=== PATIENT | female | born 1990 | race Caucasian/White ===

== ENCOUNTER 2020-01-16 09:15 | Outpatient (CLI) | payer OTHER, SELFPAY ==
[2020-01-16 09:40] LABS: Add Urine Microscopic? YES; Appearance Urine Clear (Clear); Bilirubin Urine Negative (Negative); Blood Urine 2+ (Negative); Color Urine Yellow (Yellow); Glucose Urine UA Negative (Negative); Ketones Urine Negative (Negative); Leukocyte Esterase Ur 1+ LEU/UL (Negative); Nitrate Urine Negative (Negative); Protein Urine Negative (Negative); Specific Grav Ur >= 1.030 (1.010-1.020); Urobilinogen Urine 0.2 mg/dL (0.2-1.0)
[2020-01-16 09:46] LABS: Basophils Absolute Auto 0.03 K/mm3 (0.00-0.10); Basophils Percent Auto 0.5 % (0.0-1.0); Eosinophils Absolute Auto 0.16 K/mm3 (0.02-0.50); Eosinophils Percent Auto 2.9 % (1.0-6.0); Hematocrit 40.3 % (35.0-49.0); Immature Granulocyte Absolute 0.02 K/mm3 (0.00-0.00); Immature Granulocyte Percent A 0.4 % (0.0-0.0); Lymphocytes Absolute Auto 2.08 K/mm3 (1.10-4.50); Lymphocytes Percent Auto 38.1 % (18.0-42.0); Mean Corpuscular HGB Conc 32.3 g/dL (32.0-36.0); Mean Corpuscular Hemoglobin 30.4 pg (27.0-31.0); Mean Corpuscular Volume 94.4 fL (78.0-102.0); Mean Platelet Volume 9.2 fl (9.2-11.8); Monocytes Absolute Auto 0.29 K/mm3 (0.10-0.90); Monocytes Percent Auto 5.3 % (2.0-11.0); Neutrophils Absolute Auto 2.9 K/mm3 (1.7-7.2); Neutrophils Percent Auto 52.8 % (50.0-70.0); Platelet Count Result 261 K/mm3 (150-420); Red Blood Count 4.27 M/mm3 (4.20-5.40); Red Cell Distribution Width 12.3 % (11.6-14.4); White Blood Count 5.5 K/mm3 (4.8-10.8)
[2020-01-16 09:54] LABS: Bacteria Urine 2+ /hpf; Mucus Urine Moderate /lpf; Squamous Epithelial Cell Urine Moderate /hpf (Few)
[2020-01-16 11:17] LABS: Alanine Aminotransferase 39 U/L (14-59); Alkaline Phosphatase 78 U/L (46-116); Anion Gap 15 mmol/L (8-16); Aspartate Amino Transferase 23 U/L (15-37); Bilirubin,Total 0.3 mg/dL (0.00-1.00); Blood Urea Nitrogen 15 mg/dL (7-18); Calcium 9.3 mg/dL (8.5-10.1); Carbon Dioxide 22 mmol/L (21-32); Chloride 104 mmol/L (98-108); Cholesterol 237 mg/dL (0-200); Estimated Glomerular Filt Rate > 60; Free T3 3.37 pg/mL (2.18-3.98); Free T4 Free Thyroxine 1.17 ng/dL (0.76-1.46); Glucose 88 mg/dL (70-99); HDL Direct 55 mg/dL (40-60); LDL Cholesterol Calculated 163 mg/dL (<130); Osmolality Calculated 291 mOsm/kg (285-295); Potassium 4.5 mmol/L (3.5-5.1); Sodium 141 mmol/L (136-145); Total Protein 7.6 g/dL (6.4-8.2); Triglycerides 95 mg/dL (0-150)
== END 2020-01-16 09:16 | disposition home or self-care (01) ==
LOC: CHSLAB 09:24
PROVIDERS: PCP Internal Medicine; Visit Provider Internal Medicine
DX: E78.5 Hyperlipidemia, unspecified (principal); E03.4 Atrophy of thyroid (acquired); R82.90 Unspecified abnormal findings in urine
CPT/HCPCS: 36415; 80053; 80061; 81001; 84439; 84443; 84481; 85025; 87086

== ENCOUNTER 2020-04-28 12:40 | Outpatient (CLI) | payer OTHER, SELFPAY ==
[2020-04-28 13:56] LABS: Influenza Control Valid (Valid)
[2020-04-28 13:57] LABS: SARS-CoV-2 Ag Negative (Negative)
== END 2020-04-28 12:41 | disposition home or self-care (01) ==
PROVIDERS: PCP Internal Medicine; Visit Provider Internal Medicine
DX: J02.9 Acute pharyngitis, unspecified (principal); Z20.828 Contact with and (suspected) exposure to other viral communicable diseases
CPT/HCPCS: 87081; 87426; 87804; 87880

== ENCOUNTER 2020-05-11 08:49 | Outpatient (CLI) | payer OTHER, SELFPAY ==
[2020-05-11 10:04] LABS: SARS-CoV-2 Ag Positive (Negative)
== END 2020-05-11 08:50 | disposition home or self-care (01) ==
LOC: CHSLAB 08:50
PROVIDERS: PCP Internal Medicine; Visit Provider Internal Medicine
DX: U07.1 COVID-19 (principal)
CPT/HCPCS: 87426

== ENCOUNTER 2020-05-22 09:10 | Emergency (ER) | payer OTHER, SELFPAY ==
--- NOTE | ~2020-05-22 | XR_ITS ---
EXAMINATION: XR chest 1V portable EXAM DATE: 05/22/2020 10:46 INDICATION: Abnormal CT, possible covid, shortness of breath. TECHNIQUE: Portable AP frontal chest x-ray was obtained. Comparison is made to prior examination from 11/02/2018. FINDINGS: Thoracolumbar Ramesh rods. No confluent consolidation, pneumothorax or pleural effusion suspected. Cardiomediastinal silhouette is normal. There are no osseous abnormalities identified. IMPRESSION: Can't identify the small basilar groundglass opacities confirmed on CT. Reviewed, dictated and finalized at location A. RVISOR CHEMICAL
--- NOTE | ~2020-05-22 | CT_ITS ---
EXAMINATION: CT abdomen pelvis wo con EXAM DATE: 05/22/2020 09:57 INDICATION: Right flank pain. TECHNIQUE: Spiral CT of the abdomen and pelvis was performed without contrast. Axial, coronal and sag ittal images were reviewed. The dose-length product (DLP) for this examination was 344.30 mGy-cm. T he exposure was tailored according to patient size (auto mA exposure control), and iterative reconstr uction (ASIR) was used as additional dose reduction technique. Comparison is made to prior examinatio n from 05/18/2019. FINDINGS: There is a 5 mm stone in the right ureteropelvic junction with mild right-sided hydronephro sis. Several other punctate right calyceal stones. Kidneys are somewhat obscured by the metallic tamia fact from Ramesh rods. The uterus and ovaries are unremarkable, no adnexal mass. The bladder is collapsed at time of imaging limiting evaluation. The liver, spleen, adrenal glands and pancreas ar e unremarkable. Gallbladder is unremarkable. No biliary obstruction. There is no retroperitoneal o r pelvic lymphadenopathy. The stomach and small bowel are unremarkable. There is expected amount of colonic stool. No free i ntraperitoneal gas. The heart is normal in size. There are no pericardial or pleural effusions. S everal small regions of peripheral left lower lobe and right lower lobe groundglass opacities, nonspe cific pneumonitis but could be COVID pneumonia given community prevalence. There are no osteoblastic or osteolytic lesions identified. IMPRESSION: 1. Right UPJ 5 mm stone, mild obstructive nephropathy. 2. Punctate right nephrolithiasis. 3. Several small basilar groundglass opacities, possible COVID pneumonia. I discussed these findings with Anika Tavera MD at 05/22/2020 10:01 TRUCK DOCK MATERIAL MOVER. Reviewed, dictated and finalized at location A. K DOCK MATERIAL MOVER IMPRESSION: 1. Right UPJ 5 mm stone, mild obstructive nephropathy. 2. Punctate right nephrolithiasis. 3. Several small basilar groundglass opacities, possible COVID pneumonia. I discussed these findings with Anika Tavera MD at 05/22/2020 10:01 [facility].
--- NOTE | ~2020-05-22 | XR_ITS ---
EXAMINATION: XR abdomen/kub 1V EXAM DATE: 05/22/2020 09:57 INDICATION: Right UPJ 5 mm stone. TECHNIQUE: Frontal projection of the upper abdomen, frontal projection lower abdomen/pelvis for inter pretation. Comparison is made to prior examination from 04/15/2019. FINDINGS: Probable identification of right UPJ 5 mm stone, finding indicated. Nonobstructive bowel g as pattern. Mild lumbar levoscoliosis. There is no organomegaly. IMPRESSION: Probable identification right UPJ 5 mm stone. Reviewed, dictated and finalized at location A. LATOR HELPER
[2020-05-22 09:21] VITALS: BP 141/100; PULSE 88; RESP 18; TEMP 36.7; O2SAT 99
--- NOTE | 2020-05-22 09:39 | ED.BACK ---
HPI - Back Pain/Injury General Chief Complaint: Back Pain/Injury Stated Complaint: flank/back pain Time Seen by Provider: 05/22/20 09:17 Source: patient Mode of arrival: ambulatory Limitations: no limitations History of Present Illness HPI Narrative: This patient is a 29 year old female who presents for evaluation of right flank pain. She states her pain started at 630 am this morning. This pain is located right flank and it radiates to right upper abdomen. She reports associated nausea, urinary urgency and hesitancy. She denies hematuria or fever. She took tylenol prior to arrival with no relief. She does have a history of kidney stones. MD elicited complaint: back pain Pertinent past history: kidney stones and back surgery Onset (ago): hour(s) (3) Timing: constant Location: right flank Radiation: abdomen Related Data Allergies Allergy/AdvReac Type Severity Reaction Status Date / Time magnesium sulfate Allergy Unknown SEIZURE Verified 05/22/20 09:25 Sulfa (Sulfonamide Allergy Unknown NAUSEA Verified 05/22/20 09:25 Antibiotics) linezolid AdvReac Unknown VOMITING Verified 05/22/20 09:25 Review of Systems Review of Systems: All systems reviewed & are unremarkable except as noted in HPI and below Constitutional: Constitutional: Denies chills and Denies fever(s) Gastrointestinal: Gastrointestinal: Reports abdominal pain and Denies vomiting Genitourinary: Genitourinary: Reports nocturia, Denies dysuria and Reports flank pain Musculoskeletal: Musculoskeletal: Reports back pain PMF Past Medical History Medical History (Updated 05/22/20 @ 12:46 by Anika Tavera MD) Anemia Anxiety Bronchitis Chronic back pain Endometriosis GERD (gastroesophageal reflux disease) History of blood transfusion Irritable bowel Pneumonia Scoliosis Seasonal allergies Seizure UTI (urinary tract infection) Surgical History Surgical History (Updated 05/18/19 @ 17:30 by Dalila Devries) History of laparoscopy History of spinal fusion Social History Social History (Updated 05/18/19 @ 17:30 by Dalila Devries) Smoking status: Never smoker Exam Const: General: alert Orientation/consciousness: patient oriented x3 Other: mild distress due to pain Eyes: EOM: EOMs intact bilaterally Resp: Effort & Inspection: normal respiratory effort and no retractions Auscultation: clear to auscultation bilaterally Cardio: Rate: regular rate Rhythm: regular rhythm Heart sounds: no murmurs GI: GI Palp: Yes Soft to palpation, No Tenderness to palpation present (GI) and No Guarding due to palpation present (GI) Auscultation: normal bowel sounds : General: Yes CVA tenderness on the right Skin: General skin exam: normal color Rashes: no rashes Neuro: General: patient oriented x3 and moves all extremities Course Reevaluation(s) Reevaluation #1: I discussed with patient CT findings. She reports she had covid 2 weeks ago but she was cleared by [facility] 2 days ago to end quarantine. She denies cough. She reports mild sob. She has no hypoxia. I have discussed she has elevated LFTS and that she will need to follow up with her PCP. She reports pain and nausea are controlled and she is okay for discharge to follow up as outpatient. Date: 05/22/20 Time: 12:40 Vital Signs Vital signs: Vital Signs Temperature 98.0 F 05/22/20 09:21 Pulse Rate 88 05/22/20 09:21 Respiratory Rate 18 05/22/20 09:21 Blood Pressure 141/100 H 05/22/20 09:21 Pulse Oximetry 99 05/22/20 09:21 Temperature 98.0 F 05/22/20 09:21 Pulse Rate 80 05/22/20 12:59 Respiratory Rate 20 05/22/20 12:59 Blood Pressure 124/73 05/22/20 12:59 Pulse Oximetry 97 05/22/20 12:59 MDM - Back Pain/Injury Lab Data Attestation: I reviewed the patient's lab results. Result diagrams: 05/22/20 09:49 05/22/20 09:49 Labs: Lab Results 05/22/20 05/22/20 05/22/20 Range/Units 09:
[2020-05-22] MEDS: SODIUM CHLORIDE 0.9% IV 1,000 ML 999 ML IV CONT (09:43)
[2020-05-22] MEDS: ONDANSETRON INJ 4 MG/2 ML VIAL IV PUSH ×2 (09:44→12:05)
[2020-05-22] MEDS: MORPHINE SULFATE (*CRX) 4 MG/ML INJ IV PUSH (09:44)
--- NOTE | 2020-05-22 09:47 | PC.NURSE ---
patient medicated as ordered. patient to CT via anesthesia tech.
[2020-05-22 09:59] LABS: Eosinophils Percent Auto 0.4 % (0-4.4); Hematocrit 41.7 % (37.0-47.0); Hemoglobin 13.5 g/dL (12.0-15.0); Immature Granulocyte Absolute 0.01 K/mm3 (0.00-0.031); Immature Granulocyte Percent A 0.4 % (0-0.5); Lymphocytes Absolute Auto 1.07 K/mm3 (0.9-3.2); Lymphocytes Percent Auto 41.3 % (18.3-44.2); Mean Corpuscular HGB Conc 32.4 g/dl (32-36); Mean Corpuscular Hemoglobin 29.9 pg (26-34); Mean Corpuscular Volume 92.3 fl (80-100); Mean Platelet Volume 9.1 fl (7.4-10.4); Monocytes Absolute Auto 0.3 K/mm3 (0.1-0.6); Monocytes Percent Auto 9.7 % (2.6-8.5); Neutrophils Absolute Auto 1.3 K/mm3 (1.3-6.7); Neutrophils Percent Auto 48.2 % (45.5-73.1); Platelet Count Result 128 k/mm3 (150-375); Red Blood Count 4.52 M/mm3 (4.2-5.4); Red Cell Distribution Width 12.4 % (11.5-14.5); White Blood Count 2.6 K/mm3 (4.5-10.0)
[2020-05-22 10:07] LABS: Add Urine Microscopic? YES; Amorphous Sediment Urine Few; Appearance Urine Cloudy (Clear); Bilirubin Urine Negative (Negative); Blood Urine 2+ (Negative); Color Urine Yellow (Yellow); Glucose Urine UA Negative (Negative); Ketones Urine Negative (Negative); Leukocyte Esterase Ur Negative LEU/UL (Negative); Mucus Urine Heavy /lpf; Nitrate Urine Negative (Negative); Protein Urine 1+ mg/dL (Negative); RBC Urine >75 /hpf (0-2); Squamous Epithelial Cell Urine Few /hpf (Few)
[2020-05-22 10:09] LABS: Specific Grav Ur 1.033 (1.001-1.035)
[2020-05-22 10:10] VITALS: BP 119/87; PULSE 82; RESP 18; O2SAT 99
[2020-05-22 10:17] LABS: Alanine Aminotransferase 467 U/L (4-35); Albumin Level 4.4 g/dL (3.5-5.1); Alkaline Phosphatase 93 U/L (38-126); Anion Gap 11 mmol/L (8-16); Aspartate Amino Transferase 253 U/L (14-36); Bilirubin,Total 0.5 mg/dL (0.2-1.3); Blood Urea Nitrogen 17 mg/dL (7-17); Calcium 9.2 mg/dL (8.4-10.2); Carbon Dioxide 25 mmol/L (22-30); Chloride 106 mmol/L (98-107); Estimated Glomerular Filt Rate > 60; Glucose 100 mg/dL (65-105); Lipase 93 U/L (23-300); Potassium 3.9 mmol/L (3.4-5.0); Sodium 142 mmol/L (137-145)
[2020-05-22] MEDS: HYDROmorphone HCL INJ (*CRX) 1 MG/ML SYR IV PUSH (11:02)
[2020-05-22] MEDS: TAMSULOSIN HCL 0.4 MG CAPSULE PO (11:05)
[2020-05-22 11:09] VITALS: BP 126/79; PULSE 85; RESP 18; O2SAT 98
[2020-05-22 11:59] VITALS: BP 121/67; PULSE 82; RESP 18; O2SAT 96
[2020-05-22 12:59] VITALS: BP 124/73; PULSE 80; RESP 20; O2SAT 97
== END 2020-05-22 13:02 | disposition home or self-care (01) ==
PROVIDERS: Emergency Provider General Practice; PCP Internal Medicine
DX: N13.8 Other obstructive and reflux uropathy (principal); N20.2 Calculus of kidney with calculus of ureter; R74.01 Elevation of levels of liver transaminase levels; Z86.2 Personal history of diseases of the blood and blood-forming organs and certain disorders involving the immune mechanism; K21.9 Gastro-esophageal reflux disease without esophagitis; N80.9 Endometriosis, unspecified; K58.9 Irritable bowel syndrome, unspecified; Z87.440 Personal history of urinary (tract) infections; Z98.1 Arthrodesis status; R91.8 Other nonspecific abnormal finding of lung field
CPT/HCPCS: 36415; 71045; 74018; 74176; 80053; 81001; 81025; 83690; 85025; 87077; 87086; 87088; 96361; 96374; 96375; 96376; 99284; A9270; J1170; J2270; J2405; J7030

== ENCOUNTER 2020-05-24 18:47 | Emergency (ER) | payer OTHER, SELFPAY ==
[2020-05-24] VITALS (26 sets, daily range): BP systolic 120–155; BP diastolic 83–98; PULSE 80–94; RESP 20; TEMP 36.7; O2SAT 90–100
--- NOTE | ~2020-05-24 | XR_ITS ---
XR abdomen/kub 1V 05/24/2020 19:55 INDICATION: Kidney stones TECHNIQUE: KUB COMPARISON: Comparison to multiple prior studies sequentially, with oldest reviewed study dated 10/2012. FINDINGS: Bowel gas pattern is normal. There is no evidence of free air, mass, organomegaly, ascites or obstruction. No abnormal calculi are seen. The bones appear intact. There are spinal fusion ebkah nges at the thoracolumbar junction. IMPRESSION: 1: No acute abdominal abnormality identified. Reviewed, dictated and finalized at location A. TS EQUIPMENT REPAIRER
--- NOTE | ~2020-05-24 | CT_ITS ---
EXAMINATION: CT abdomen pelvis wo con EXAM DATE: 05/24/2020 22:44 INDICATION: Right flank Pain TECHNIQUE: Spiral CT of the abdomen and pelvis was performed without contrast. Axial, coronal and sag ittal images were reviewed. The dose-length product (DLP) for this examination was 191.25 mGy-cm. T he exposure was tailored according to patient size (auto mA exposure control), and iterative reconstr uction (ASIR) was used as additional dose reduction technique. Comparison is made to prior examinatio n from 05/18/2019. FINDINGS: There is a 5 mm stone in the distal aspect of the right ureter, 2 cm from the ureterovesicu lar junction, has migrated from previous UPJ location. Persistent mild right hydronephrosis, interval development of mild perinephric and periureteral fat stranding. Several other punctate right calycea l stones. Kidneys are somewhat obscured by the metallic artifact from Ramesh rods. The uterus an d ovaries are unremarkable, no adnexal mass. The bladder is unremarkable. The liver, spleen, adrena l glands and pancreas are unremarkable. Gallbladder is unremarkable. No biliary obstruction. There is no retroperitoneal or pelvic lymphadenopathy. Probable identification of a normal appendix. The stomach and small bowel are unremarkable. There is expected amount of colonic stool. No free intraperitoneal gas. The heart is normal in size. The re are no pericardial or pleural effusions. Several bilateral lower lobe regions of opacity which is more confluent than on previous exam. This i s most likely acute infectious process. There are no osteoblastic or osteolytic lesions identified. IMPRESSION: 1. Right distal ureteral 5 mm stone, mild obstructive nephropathy. 2. Several more confluent small lower lobe opacities likely acute infectious process. 3. Punctate right nephrolithiasis. Reviewed, dictated and finalized at location B. S REPRESENTATIVE SUPERVISOR IMPRESSION: 1. Right distal ureteral 5 mm stone, mild obstructive nephropathy. 2. Several more confluent small lower lobe opacities likely acute infectious p rocess. 3. Punctate right nephrolithiasis.
[2020-05-24 19:18] LABS: Basophils Percent Auto 0.2 % (0.2-1.2); Eosinophils Percent Auto 0.2 % (0-4.4); Hematocrit 36.2 % (37.0-47.0); Hemoglobin 12.2 g/dL (12.0-15.0); Immature Granulocyte Absolute 0.03 K/mm3 (0.00-0.031); Immature Granulocyte Percent A 0.5 % (0-0.5); Lymphocytes Absolute Auto 1.02 K/mm3 (0.9-3.2); Lymphocytes Percent Auto 17.1 % (18.3-44.2); Mean Corpuscular HGB Conc 33.7 g/dl (32-36); Mean Corpuscular Hemoglobin 30.2 pg (26-34); Mean Corpuscular Volume 89.6 fl (80-100); Mean Platelet Volume 9.1 fl (7.4-10.4); Monocytes Absolute Auto 0.4 K/mm3 (0.1-0.6); Monocytes Percent Auto 7.2 % (2.6-8.5); Neutrophils Absolute Auto 4.5 K/mm3 (1.3-6.7); Neutrophils Percent Auto 74.8 % (45.5-73.1); Platelet Count Result 145 k/mm3 (150-375); Red Blood Count 4.04 M/mm3 (4.2-5.4); Red Cell Distribution Width 11.9 % (11.5-14.5)
[2020-05-24 19:35] LABS: Anion Gap 13 mmol/L (8-16); Blood Urea Nitrogen 14 mg/dL (7-17); Calcium 9.2 mg/dL (8.4-10.2); Carbon Dioxide 22 mmol/L (22-30); Chloride 103 mmol/L (98-107); Estimated Glomerular Filt Rate 59; Glucose 123 mg/dL (65-105); Potassium 3.8 mmol/L (3.4-5.0); Sodium 138 mmol/L (137-145)
--- NOTE | 2020-05-24 19:44 | ED.FEMALEGU ---
HPI - Female Genitourinary General Chief complaint: Urogenital-Female Stated complaint: kidney stone Time Seen by Provider: 05/24/20 19:21 History of Present Illness HPI Narrative: Right flank pain, nausea, and vomiting since 05/22. Seen here then and diagnosed with a 5 mm UPJ kidney stone. Discharged with pain meidcation, which was helping intially. Now she is having more pain and she is not able to tolerate PO. She was seen at [place] and reports that they wanted to admit her for COVID-19. She says that she had this 3 weeks ago and was cleared so she did not stay there. Related Data Allergies Allergy/AdvReac Type Severity Reaction Status Date / Time magnesium sulfate Allergy Unknown SEIZURE Verified 05/24/20 19:00 Sulfa (Sulfonamide Allergy Unknown NAUSEA Verified 05/24/20 19:00 Antibiotics) linezolid AdvReac Unknown VOMITING Verified 05/24/20 19:00 Review of Systems Review of Systems: All systems reviewed & are unremarkable except as noted in HPI and below Constitutional: Constitutional: Reports fatigue Cardiovascular: Cardiovascular: Denies chest pain Respiratory: Respiratory: Denies dyspnea Gastrointestinal: Gastrointestinal: Reports abdominal pain, Reports diarrhea, Reports nausea and Reports vomiting Genitourinary: Genitourinary: Denies hematuria and Denies dysuria Musculoskeletal: Musculoskeletal: Reports back pain Neurologic: Denies confusion, Reports dizziness and Reports weakness PMFSH Past Medical History Medical History Anemia Anxiety Bronchitis Chronic back pain Endometriosis GERD (gastroesophageal reflux disease) History of blood transfusion Irritable bowel Pneumonia Scoliosis Seasonal allergies Seizure UTI (urinary tract infection) Surgical History Surgical History History of laparoscopy History of spinal fusion Social History Social History Smoking status: Never smoker Exam Const: General: no acute distress, alert and ill appearing Orientation/consciousness: patient oriented x3 HENMT: Head: normal to inspection Resp: Effort & Inspection: normal respiratory effort Auscultation: clear to auscultation bilaterally Cardio: Rate: regular rate Rhythm: regular rhythm GI: GI Palp: Yes Soft to palpation and No Tenderness to palpation present (GI) Skin: General skin exam: normal color Neuro: General: patient oriented x3, moves all extremities and CN's II-XI intact bilaterally Speech: normal speech Extrem: General: normal to inspection Course Vital Signs Vital signs: Vital Signs Temperature 36.7 C 05/24/20 18:53 Pulse Rate 94 05/24/20 18:53 Respiratory Rate 20 05/24/20 18:53 Blood Pressure 155/96 H 05/24/20 18:53 Pulse Oximetry 99 05/24/20 18:53 Temperature 36.7 C 05/24/20 18:53 Pulse Rate 80 05/24/20 21:00 Respiratory Rate 20 05/24/20 18:53 Blood Pressure 133/89 05/24/20 22:30 Pulse Oximetry 96 05/24/20 23:15 MDM - Female Genitourinary MDM Narrative Medical decision making narrative: No stone seen on KUB. She continues t have severe symptoms so repeat CT was done. This showed a UVJ stone and findings of enteritis. Differential Diagnosis Differential diagnosis: Likely urinary tract infection and other (kidney stone, enteritis, Gastroenteritis, ) Medical Records Attestation: I reviewed the patient's medical records. Lab Data Attestation: I reviewed the patient's lab results. Result diagrams: 05/24/20 19:11 05/24/20 19:11 Labs: Lab Results 05/24/20 05/24/20 05/24/20 Range/Units 19:11 19:11 19:59 WBC 6.0 (4.5-10.0) K/mm3 RBC 4.04 L (4.2-5.4) M/mm3 Hgb 12.2 (12.0-15.0) g/dL Hct 36.2 L (37.0-47.0) % MCV 89.6 (80-100) fl MCH 30.2 (26-34) pg MCHC 33.7 (32-36) g/dl RDW 11.9 (11.5-14.5) %
[2020-05-24 20:11] LABS: Add Urine Microscopic? YES; Appearance Urine Clear (Clear); Bilirubin Urine Negative (Negative); Blood Urine 2+ (Negative); Color Urine Yellow (Yellow); Glucose Urine UA Negative (Negative); Ketones Urine 2+ mg/dL (Negative); Leukocyte Esterase Ur Trace LEU/UL (Negative); Mucus Urine Rare /lpf; Nitrate Urine Negative (Negative); Protein Urine 2+ mg/dL (Negative); RBC Urine 51-75 /hpf (0-2); Specific Grav Ur 1.026 (1.001-1.035); Squamous Epithelial Cell Urine Occasional /hpf (Few); Urobilinogen Urine Negative mg/dL (<2.0)
[2020-05-24] MEDS: SODIUM CHLORIDE 0.9% IV 1,000 ML 999 ML IV CONT ×3 (20:16→23:25)
[2020-05-24] MEDS: MORPHINE SULFATE (*CRX) 4 MG/ML INJ IV PUSH ×2 (20:16→22:25)
[2020-05-24] MEDS: ONDANSETRON INJ 4 MG/2 ML VIAL IV PUSH (22:25)
[2020-05-24] MEDS: KETOROLAC 30 MG/ML VIAL (*BKC) IV PUSH (23:25)
[2020-05-25] VITALS (7 sets, daily range): BP systolic 120–144; BP diastolic 78–96; O2SAT 90–95
== END 2020-05-25 00:51 | disposition home or self-care (01) ==
PROVIDERS: Emergency Medicine; Emergency Provider Emergency Medicine; PCP Internal Medicine
DX: N13.8 Other obstructive and reflux uropathy (principal); N20.2 Calculus of kidney with calculus of ureter; D64.9 Anemia, unspecified; Z86.19 Personal history of other infectious and parasitic diseases; N80.9 Endometriosis, unspecified; K21.9 Gastro-esophageal reflux disease without esophagitis; K58.9 Irritable bowel syndrome, unspecified; Z87.440 Personal history of urinary (tract) infections; Z98.1 Arthrodesis status
CPT/HCPCS: 36415; 74018; 74176; 80048; 81001; 81025; 85025; 87086; 96361; 96374; 96375; 96376; 99284; J1885; J2270; J2405; J7030

== ENCOUNTER 2020-07-31 10:11 | Outpatient (CLI) | payer OTHER, SELFPAY ==
--- NOTE | ~2020-07-31 | XR_ITS ---
EXAMINATION: XR_CERV2-3V_CR EXAM DATE: 07/31/2020 10:49 INDICATION: Neck pain. TECHNIQUE: Cervical spine frontal, lateral, and open-mouth odontoid projections. There is no prior study for comparison. FINDINGS: There is mild cervical dextroscoliosis, mild to moderate upper thoracic levoscoliosis. The re is no evidence of acute cervical fracture. The odontoid process is intact. Pre-dens space is nor mal. Prevertebral soft tissue is normal. There are no soft tissue abnormalities identified. Verteb ral body and disc heights are well-maintained. The vertebral bodies are aligned. Thoracic Harring ton rods. IMPRESSION: 1. Cervical thoracic scoliosis. Reviewed, dictated and finalized at location A. EMATICS EDUCATION PROFESSOR
--- NOTE | ~2020-07-31 | XR_ITS ---
EXAMINATION: XR chest 2V DATE: 07/31/2020 10:49 INDICATION: COVID pneumonia TECHNIQUE: PA and lateral views of the chest were obtained. COMPARISON: Chest radiograph dated 05/22/2020 FINDINGS: The lungs remain clear with no focal airspace opacities, pulmonary edema, pleural effusion or pneumot horax. The cardiomediastinal silhouette is normal. Thoracolumbar T4-L2. Posterior spinal fusion with bilateral vertical keyshawn and pedicle screw fixation extending from IMPRESSION: 1. No acute cardiopulmonary disease. Reviewed, dictated and finalized at location B. ENING TECHNICIAN
[2020-07-31 10:25] LABS: Basophils Absolute Auto 0.02 K/mm3 (0.00-0.10); Basophils Percent Auto 0.4 % (0.0-1.0); Eosinophils Absolute Auto 0.04 K/mm3 (0.02-0.50); Eosinophils Percent Auto 0.7 % (1.0-6.0); Hematocrit 38.2 % (35.0-49.0); Hemoglobin 12.6 g/dL (12.0-15.0); Immature Granulocyte Absolute 0.01 K/mm3 (0.00-0.00); Immature Granulocyte Percent A 0.2 % (0.0-0.0); Lymphocytes Absolute Auto 1.41 K/mm3 (1.10-4.50); Lymphocytes Percent Auto 25.9 % (18.0-42.0); Mean Corpuscular Hemoglobin 30.8 pg (27.0-31.0); Mean Corpuscular Volume 93.4 fL (78.0-102.0); Mean Platelet Volume 9.1 fl (9.2-11.8); Monocytes Absolute Auto 0.39 K/mm3 (0.10-0.90); Monocytes Percent Auto 7.2 % (2.0-11.0); Neutrophils Absolute Auto 3.6 K/mm3 (1.7-7.2); Neutrophils Percent Auto 65.6 % (50.0-70.0); Platelet Count Result 243 K/mm3 (150-420); Red Blood Count 4.09 M/mm3 (4.20-5.40); Red Cell Distribution Width 12.8 % (11.6-14.4); White Blood Count 5.4 K/mm3 (4.8-10.8)
[2020-07-31 10:27] LABS: Add Urine Microscopic? YES; Appearance Urine Clear (Clear); Bilirubin Urine Negative (Negative); Blood Urine 2+ (Negative); Color Urine Yellow (Yellow); Glucose Urine UA Negative (Negative); Ketones Urine Negative (Negative); Leukocyte Esterase Ur Trace (Negative); Nitrate Urine Negative (Negative); Protein Urine Negative (Negative); Specific Grav Ur >= 1.030 (1.010-1.020); Urobilinogen Urine 0.2 mg/dL (0.2-1.0)
[2020-07-31 10:38] LABS: Squamous Epithelial Cell Urine Few /hpf (Few)
[2020-07-31 10:39] LABS: Bacteria Urine Trace /hpf
[2020-07-31 11:13] LABS: Alanine Aminotransferase 30 U/L (14-59); Albumin Level 4.3 g/dL (3.4-5.0); Alkaline Phosphatase 68 U/L (46-116); Anion Gap 12 mmol/L (8-16); Aspartate Amino Transferase 11 U/L (15-37); Bilirubin,Total 0.4 mg/dL (0.00-1.00); Blood Urea Nitrogen 15 mg/dL (7-18); Calcium 9.3 mg/dL (8.5-10.1); Carbon Dioxide 24 mmol/L (21-32); Chloride 105 mmol/L (98-108); Cholesterol 169 mg/dL (0-200); Creatine Kinase 60 U/L (26-192); Estimated Glomerular Filt Rate > 60; Glucose 92 mg/dL (70-99); HDL Direct 53 mg/dL (40-60); LDL Cholesterol Calculated 80 mg/dL (<130); Osmolality Calculated 292 mOsm/kg (285-295); Sodium 141 mmol/L (136-145); Total Protein 7.3 g/dL (6.4-8.2); Triglycerides 181 mg/dL (0-150)
== END 2020-07-31 10:12 | disposition home or self-care (01) ==
LOC: CHSLAB 10:13
PROVIDERS: PCP Internal Medicine; Visit Provider Internal Medicine
DX: E78.2 Mixed hyperlipidemia (principal); I10 Essential (primary) hypertension; M54.2 Cervicalgia; U07.1 COVID-19; J12.82 Pneumonia due to coronavirus disease 2019; N39.0 Urinary tract infection, site not specified
CPT/HCPCS: 36415; 71046; 72040; 80053; 80061; 81001; 82550; 85025; 87086

== ENCOUNTER 2021-01-21 15:24 | Outpatient (CLI) | payer OTHER, SELFPAY ==
--- NOTE | ~2021-01-21 | CT_ITS ---
EXAMINATION: CT abdomen pelvis wo con DATE: 01/21/2021 15:44 INDICATION: Right flank pain, hematuria, nausea and vomiting TECHNIQUE: Computed tomography (CT) of the abdomen and pelvis was performed without intravenous contr ast. Automated exposure control and iterative reconstruction technique were employed. Exam dose: 184 .74 mGy-cm total exam DLP. COMPARISON: 05/04/2020 CT abdomen pelvis FINDINGS: Examination is limited by considerable streak artifact from bilateral spinal rods extending inferiorly to L2. The lung bases are clear of infiltrate or consolidation. Normal heart size. No pericardial or pleural effusion. The liver, gallbladder, bile duct, spleen, pancreas and pancreatic duct and adrenal glands are unrema rkable. No apparent renal mass lesion is noted, but the examination is limited for evaluation of visceral mas ses due to the streak artifact and the lack of IV contrast material. Nonobstructing approximately 4 mm lower pole right renal calculus. Distal right ureteral approximately 5 x 5 mm calculus with moderate proximal right hydroureteronephro sis. The urinary bladder, uterus and adnexal areas are unremarkable. Normal caliber of the abdominal aorta. No intraperitoneal or retroperitoneal or pelvic mass lesion or adenopathy or ascites. Normal appendix. No bowel obstruction, bowel wall thickening, pneumatosis or intraperitoneal free air . Small fat-containing umbilical hernia. IMPRESSION: Approximately 5 x 5 mm distal right ureteral calculus with moderate proximal right hydro ureteronephrosis 4 mm lower pole nonobstructing right renal calculus Reviewed, dictated and finalized at Location A. Reviewed, dictated and finalized at location A. IMPRESSION: Approximately 5 x 5 mm distal right ureteral calculus with moderat e proximal right hydroureteronephrosis 4 mm lower pole nonobstructing right renal calculus
== END 2021-01-21 15:25 | disposition home or self-care (01) ==
LOC: CHSIMG 15:26
PROVIDERS: PCP Internal Medicine; Visit Provider Internal Medicine
DX: R31.9 Hematuria, unspecified (principal); R10.9 Unspecified abdominal pain; N13.2 Hydronephrosis with renal and ureteral calculous obstruction
CPT/HCPCS: 74176

== ENCOUNTER 2021-01-22 12:13 | Emergency (ER) | payer OTHER, SELFPAY ==
--- NOTE | ~2021-01-22 | XR_ITS ---
EXAMINATION: XR abdomen/kub 1V DATE: 01/22/2021 15:38 INDICATION: Right flank pain. TECHNIQUE: A supine view of the abdomen on 2 radiographs was obtained. COMPARISON: CT abdomen and pelvis 01/21/2021 FINDINGS: There are no dilated loops of bowel. The kidneys are obscured by bowel. There is a 5 mm sto ne at right ureterovesicular junction. IMPRESSION: 1. 5 mm stone at right ureterovesicular junction. Reviewed, dictated and finalized at location A.
[2021-01-22 12:18] VITALS: BP 142/89; PULSE 95; RESP 18; TEMP 36.6; O2SAT 100
--- NOTE | 2021-01-22 12:32 | ED.ABDPAIN ---
HPI - Abdominal Pain General Chief Complaint: Back Pain/Injury Stated Complaint: Kidney Stone/Vomiting Time Seen by Provider: 01/22/21 12:29 Source: patient Mode of arrival: ambulatory Limitations: no limitations History of Present Illness HPI narrative: Patient is a 30-year-old female complaining of right flank pain, 9 out of 10, sharp, nonradiating accompanied by nausea and vomiting that started yesterday. Patient was seen at [place] yesterday and was diagnosed with a kidney stone. Her CT scan is showing a 5.5 ureteral calculus with hydronephrosis. Related Data Allergies Allergy/AdvReac Type Severity Reaction Status Date / Time magnesium sulfate Allergy Unknown SEIZURE Verified 01/22/21 12:20 Sulfa (Sulfonamide Allergy Unknown NAUSEA Verified 01/22/21 12:20 Antibiotics) linezolid AdvReac Unknown VOMITING Verified 01/22/21 12:20 Review of Systems Review of Systems: All systems reviewed & are unremarkable except as noted in HPI and below Constitutional: Constitutional: Denies body ache(s), Denies chills, Denies excessive sweating, Denies fatigue, Denies fever(s), Denies headache(s), Denies lethargy, Denies malaise, Denies weakness and Denies weight loss Eyes: Eyes: Denies blurry vision, Denies change in vision and Denies loss of vision ENT: Denies dizziness, Denies ear discharge, Denies headache(s), Denies lip swelling, Denies epistaxis, Denies nasal congestion, Denies neck pain, Denies throat swelling and Denies tongue swelling Cardiovascular: Cardiovascular: Denies chest pain, Denies chest pain at rest, Denies chest pain with activity, Denies diaphoresis, Denies rapid heart rate, Denies edema, Denies irregular heart rhythm, Denies lightheadedness, Denies palpitations, Denies dyspnea and Denies dyspnea on exertion Respiratory: Respiratory: Denies chest congestion, Denies cough, Denies hemoptysis, Denies dyspnea and Denies dyspnea on exertion Gastrointestinal: Gastrointestinal: Denies abdominal pain, Denies melena, Denies hematochezia, Denies diarrhea, Reports nausea, Reports vomiting and Denies hematemesis Musculoskeletal: Musculoskeletal: Denies abnormal gait, Denies deformity, Denies joint swelling, Denies limited range of motion, Denies neck pain and Denies numbness Neurologic: Denies Abnormal speech present, Denies abnormal gait, Denies confusion, Denies dizziness, Denies headache(s), Denies focal weakness, Denies loss of vision, Denies numbness, Denies Other visual disturbances, Denies Sensory deficit (Neuro) and Denies weakness Psychiatric: Psychiatric: Denies confusion, Denies depression, Denies auditory hallucinations, Denies homicidal ideation and Denies suicidal ideation Endocrine: Endocrine: Denies cold intolerance, Denies excessive sweating, Denies fatigue, Denies heat intolerance and Denies palpitations Hematologic/Lymphatic: Hematologic/Lymphatic: Denies easy bleeding and Denies easy bruising Allergic/Immunologic: Allergic/Immunologic: Denies lip swelling, Denies throat swelling and Denies tongue swelling PMF Past Medical History Medical History (Updated 01/22/21 @ 15:38 by Raffi Lundberg MD) Acute unilateral obstructive uropathy Anemia Anxiety Bronchitis Chronic back pain Endometriosis GERD (gastroesophageal reflux disease) History of blood transfusion Irritable bowel Pneumonia Scoliosis Seasonal allergies Seizure UTI (urinary tract infection) Surgical History Surgical History History of laparoscopy History of spinal fusion Social History Social History Smoking status: Never smoker Gender identity (if verbalized by the patient): Female Exam Const: General: cooperative, healthy appearing, comfortable, no acute distress, well developed, alert and awake; No confusion Orientation/consciousness: oriented to person, oriented to place, oriented to time, patient oriented x3 and
[2021-01-22 12:50] LABS: Basophils Percent Auto 0.3 % (0.2-1.2); Eosinophils Percent Auto 0.4 % (0-4.4); Hematocrit 38.5 % (37.0-47.0); Hemoglobin 12.3 g/dL (12.0-15.0); Immature Granulocyte Absolute 0.02 K/mm3 (0.00-0.031); Immature Granulocyte Percent A 0.3 % (0-0.5); Lymphocytes Absolute Auto 1.11 K/mm3 (0.9-3.2); Lymphocytes Percent Auto 15.3 % (18.3-44.2); Mean Corpuscular HGB Conc 31.9 g/dl (32-36); Mean Corpuscular Hemoglobin 29.6 pg (26-34); Mean Corpuscular Volume 92.8 fl (80-100); Mean Platelet Volume 9.1 fl (7.4-10.4); Monocytes Absolute Auto 0.4 K/mm3 (0.1-0.6); Monocytes Percent Auto 5.5 % (2.6-8.5); Neutrophils Absolute Auto 5.7 K/mm3 (1.3-6.7); Neutrophils Percent Auto 78.2 % (45.5-73.1); Platelet Count Result 229 k/mm3 (150-375); Red Blood Count 4.15 M/mm3 (4.2-5.4); Red Cell Distribution Width 12.1 % (11.5-14.5); White Blood Count 7.3 K/mm3 (4.5-10.0)
[2021-01-22] MEDS: PROMETHAZINE HCL 25 MG/ML AMPUL 12.5 MG IV PUSH (12:50)
[2021-01-22] MEDS: SODIUM CHLORIDE 0.9% IV 1,000 ML 999 ML IV CONT (12:51)
[2021-01-22] MEDS: HYDROmorphone HCL INJ (*CRX) 1 MG/ML SYR 0.5 MG IV PUSH (12:51)
[2021-01-22 12:58] LABS: Alanine Aminotransferase 18 U/L (4-35); Albumin Level 4.7 g/dL (3.5-5.1); Alkaline Phosphatase 92 U/L (38-126); Anion Gap 12 mmol/L (8-16); Aspartate Amino Transferase 27 U/L (14-36); Bilirubin,Total 0.6 mg/dL (0.2-1.3); Blood Urea Nitrogen 16 mg/dL (7-17); Calcium 9.9 mg/dL (8.4-10.2); Carbon Dioxide 21 mmol/L (22-30); Chloride 100 mmol/L (98-107); Estimated CRCL calculation 74 ml/min; Estimated Glomerular Filt Rate > 60; Glucose 101 mg/dL (65-110); Lipase 45 U/L (23-300); Potassium 4.1 mmol/L (3.4-5.0); Sodium 133 mmol/L (137-145)
[2021-01-22 13:19] LABS: Add Urine Microscopic? YES; Appearance Urine Clear (Clear); Bilirubin Urine Negative (Negative); Blood Urine 3+ (Negative); Color Urine Straw (Yellow); Glucose Urine UA Negative (Negative); Ketones Urine Trace mg/dL (Negative); Leukocyte Esterase Ur 1+ LEU/UL (Negative); Mucus Urine Rare /lpf; Nitrate Urine Negative (Negative); Protein Urine Negative (Negative); Specific Grav Ur 1.012 (1.001-1.035); Squamous Epithelial Cell Urine Rare /hpf (Few); Urobilinogen Urine Negative mg/dL (<2.0)
[2021-01-22] MEDS: TAMSULOSIN HCL 0.4 MG CAPSULE PO (15:38)
[2021-01-22 15:55] VITALS: BP 132/78; PULSE 92; RESP 18; O2SAT 99
[2021-01-22] MEDS: HYDROcodone/acetaminophen (*CRX) 5-325 MG TABLET 1 TAB PO (15:56)
[2021-01-22] MEDS: KETOROLAC 30 MG/ML VIAL (*BKC) IV PUSH (15:56)
== END 2021-01-22 15:55 | disposition home or self-care (01) ==
PROVIDERS: Emergency Medicine; Emergency Provider Emergency Medicine; PCP Internal Medicine
DX: N13.2 Hydronephrosis with renal and ureteral calculous obstruction (principal); K21.9 Gastro-esophageal reflux disease without esophagitis; N80.9 Endometriosis, unspecified; K58.9 Irritable bowel syndrome, unspecified; Z87.01 Personal history of pneumonia (recurrent); Z87.440 Personal history of urinary (tract) infections
CPT/HCPCS: 36415; 74018; 80053; 81001; 81025; 83690; 85025; 87086; 96361; 96374; 96375; 99284; A9270; J1170; J1885; J2550; J7030

== ENCOUNTER 2021-03-03 14:44 | Outpatient (CLI) | payer OTHER, SELFPAY ==
--- NOTE | ~2021-03-03 | US_ITS ---
EXAMINATION: US retroperitoneal comp DATE: 03/03/2021 15:11 INDICATION: Kidney stones. TECHNIQUE: Multiple ultrasound grayscale images of the kidneys were obtained. COMPARISON: Ultrasound 02/11/2019, CT abdomen and pelvis 01/21/2021 FINDINGS: The right kidney measures 10.4 x 5.4 x 5.2 cm. The left kidney measures 10.3 x 4.8 x 5.8 cm. The kidn eys demonstrate normal parenchymal echogenicity. There is no hydronephrosis. The bladder is normal. IMPRESSION: 1. Normal kidney sizes. No hydronephrosis. No stones identified, but note that CT is more sensitive t combs ultrasound. Reviewed, dictated and finalized at location A. IMPRESSION: 1. Normal kidney sizes. No hydronephrosis. No stones identified, but note that CT is more sensitive than ultrasound.
== END 2021-03-03 14:45 | disposition home or self-care (01) ==
LOC: CHSIMG 14:45
PROVIDERS: PCP Internal Medicine
DX: N20.0 Calculus of kidney (principal)
CPT/HCPCS: 76770

== ENCOUNTER 2021-04-01 15:58 | Emergency (ER) | payer OTHER, SELFPAY ==
--- NOTE | ~2021-04-01 | CT_ITS ---
EXAMINATION: CT abdomen pelvis wo con DATE: 04/01/2021 17:27 INDICATION: Right flank pain. History kidney stones. TECHNIQUE: Computed tomography (CT) of the abdomen and pelvis was performed without intravenous contr ast. Automated exposure control and iterative reconstruction technique were employed. Exam dose: 176 .76 mGy-cm total exam DLP. COMPARISON: 01/21/[address] abdomen pelvis FINDINGS: There is streak artifact from thoracolumbar rods and pedicle screws, limiting the examinati on. The lung bases are clear. Heart size normal. No pericardial or pleural effusion. The liver, gallbladder, bile ducts, spleen, pancreas, pancreatic duct, and adrenal glands and left ki dney are unremarkable given the limitations of the extensive previously indicated streak artifact. One to several pinpoint nonobstructing right renal calculi are suggested. There is moderate right hydroureteronephrosis due to an approximately 4.5 mm distal right ureteral ca lculus. The urinary bladder is evacuated. The uterus and adnexal areas are unremarkable. No evidence of appendicitis. No bowel obstruction or bowel wall thickening, pneumatosis or intraperit [place] free air is detected. Normal caliber of the abdominal aorta. No intraperitoneal or retroperitoneal or pelvic mass lesion or adenopathy or ascites. No suspicious osteolytic or osteoblastic lesions are noted. IMPRESSION: 4.5 mm right ureteral calculus with moderately prominent right hydroureteronephrosis Reviewed, dictated and finalized at [facility]. Reviewed, dictated and finalized at [facility]. IMPRESSION: 4.5 mm right ureteral calculus with moderately prominent right hyd roureteronephrosis
[2021-04-01 15:59] VITALS: BP 151/92; PULSE 97; RESP 14; TEMP 36.1; O2SAT 100
[2021-04-01 16:15] LABS: Basophils Percent Auto 0.3 % (0.2-1.2); Eosinophils Absolute Auto 0.1 K/mm3 (0-0.3); Eosinophils Percent Auto 1.4 % (0-4.4); Hematocrit 41.4 % (37.0-47.0); Hemoglobin 13.2 g/dL (12.0-15.0); Immature Granulocyte Absolute 0.02 K/mm3 (0.00-0.031); Immature Granulocyte Percent A 0.3 % (0-0.5); Lymphocytes Absolute Auto 1.87 K/mm3 (0.9-3.2); Lymphocytes Percent Auto 28.7 % (18.3-44.2); Mean Corpuscular HGB Conc 31.9 g/dl (32-36); Mean Corpuscular Hemoglobin 30.3 pg (26-34); Monocytes Absolute Auto 0.5 K/mm3 (0.1-0.6); Monocytes Percent Auto 7.2 % (2.6-8.5); Neutrophils Percent Auto 62.1 % (45.5-73.1); Platelet Count Result 257 k/mm3 (150-375); Red Blood Count 4.36 M/mm3 (4.2-5.4); Red Cell Distribution Width 12.5 % (11.5-14.5); White Blood Count 6.5 K/mm3 (4.5-10.0)
[2021-04-01 16:28] LABS: Anion Gap 12 mmol/L (8-16); Blood Urea Nitrogen 17 mg/dL (7-17); Calcium 10.2 mg/dL (8.4-10.2); Carbon Dioxide 23 mmol/L (22-30); Chloride 106 mmol/L (98-107); Estimated Glomerular Filt Rate > 60; Glucose 106 mg/dL (65-110); Potassium 4.1 mmol/L (3.4-5.0); Sodium 141 mmol/L (137-145)
[2021-04-01 16:35] LABS: Add Urine Microscopic? YES; Appearance Urine Cloudy (Clear); Bacteria Urine Trace /hpf; Bilirubin Urine Negative (Negative); Blood Urine 2+ (Negative); Color Urine Yellow (Yellow); Glucose Urine UA Negative (Negative); Ketones Urine Negative (Negative); Leukocyte Esterase Ur 2+ LEU/UL (Negative); Mucus Urine Rare /lpf; Nitrate Urine Negative (Negative); Protein Urine Negative (Negative); RBC Urine >75 /hpf (0-2); Specific Grav Ur 1.026 (1.001-1.035); Squamous Epithelial Cell Urine Many /hpf (Few)
--- NOTE | 2021-04-01 17:13 | ED.FEMALEGU ---
HPI - Female Genitourinary General Chief complaint: Urogenital-Female Stated complaint: right flank pain Time Seen by Provider: 04/01/21 16:59 History of Present Illness HPI Narrative: Patient is a 30-year-old female who presents ER with right-sided flank pain. Sudden onset 2 to 3 hours ago. Has history of kidney stones. Associated with nausea but no vomiting. No fevers or chills or sweats. Radiates into her umbilicus. Related Data Allergies Allergy/AdvReac Type Severity Reaction Status Date / Time magnesium sulfate Allergy Unknown SEIZURE Verified 04/01/21 17:00 Sulfa (Sulfonamide Allergy Unknown NAUSEA Verified 04/01/21 17:00 Antibiotics) linezolid AdvReac Unknown VOMITING Verified 04/01/21 17:00 Review of Systems Review of Systems: All systems reviewed & are unremarkable except as noted in HPI and below Constitutional: Constitutional: Denies chills and Denies fatigue Gastrointestinal: Gastrointestinal: Reports abdominal pain and Reports nausea Genitourinary: Genitourinary: Denies hematuria, Denies nocturia, Denies dysuria and Reports flank pain Musculoskeletal: Musculoskeletal: Denies back pain and Denies muscle cramps PMFSH Past Medical History Medical History (Updated 04/01/21 @ 19:45 by Raymond Bernstein MD) Acute unilateral obstructive uropathy Anemia Anxiety Bronchitis Chronic back pain Endometriosis GERD (gastroesophageal reflux disease) History of blood transfusion Irritable bowel Pneumonia Scoliosis Seasonal allergies Seizure UTI (urinary tract infection) Surgical History Surgical History History of laparoscopy History of spinal fusion Social History Social History Smoking status: Never smoker Gender identity (if verbalized by the patient): Female Exam Narrative: GENERAL: Well-appearing, well-nourished, and in no acute distress. HEAD: Normocephalic, atraumatic. CHEST: Clear to auscultation. No respiratory distress. HEART: Regular rate and rhythm. Normal peripheral pulses. ABDOMEN: Soft, nontender, nondistended. Right-sided CVA tenderness. EXTREMITIES: Normal range of motion. No edema. SKIN: Warm, dry, no rash. NEURO: Alert and oriented x3. PSYCH: Normal mood and affect. Course Course Emergency Course: Pain improved with Toradol. Informed results. Discharge home. Vital Signs Vital signs: Vital Signs Temperature 97.0 F L 04/01/21 15:59 Pulse Rate 97 04/01/21 15:59 Respiratory Rate 14 04/01/21 15:59 Blood Pressure 151/92 H 04/01/21 15:59 Pulse Oximetry 100 04/01/21 15:59 Temperature 97.0 F L 04/01/21 15:59 Pulse Rate 97 04/01/21 15:59 Respiratory Rate 14 04/01/21 15:59 Blood Pressure 151/92 H 04/01/21 15:59 Pulse Oximetry 100 04/01/21 15:59 MDM - Female Genitourinary Lab Data Result diagrams: 04/01/21 16:08 04/01/21 16:08 Labs: Lab Results 04/01/21 04/01/21 04/01/21 Range/Units 16:08 16:08 16:13 WBC 6.5 (4.5-10.0) K/mm3 RBC 4.36 (4.2-5.4) M/mm3 Hgb 13.2 (12.0-15.0) g/dL Hct 41.4 (37.0-47.0) % MCV 95.0 (80-100) fl MCH 30.3 (26-34) pg MCHC 31.9 L (32-36) g/dl RDW 12.5 (11.5-14.5) % Plt Count 257 (150-375) k/mm3 MPV 9.0 (7.4-10.4) fl Immature Gran % (Auto) 0.3 (0-0.5) % Neut % (Auto) 62.1 (45.5-73.1) % Lymph % (Auto) 28.7 (18.3-44.2) % [place] % (Auto) 7.2 (2.6-8.5) % Eos % (Auto) 1.4 (0-4.4) % Baso % (Auto) 0.3 (0.2-1.2) % Lymph # (Auto) 1.87 (0.9-3.2) K/mm3 [place] # (Auto) 0.5 (0.1-0.6) K/mm3 Eos # (Auto) 0.1 (0-0.3) K/mm3 Baso # (Auto) 0.0 (0.0-0.1) K/mm3 Abs Immat Gran (auto) 0.02 (0.00-0.031) K/mm3 Absolute Neuts (auto) 4.0 (1.3-6.7) K/mm3 Absolute Nucleated RBC 0.0 (0.0-0.012) K/mm3 Nucleated RBC % 0.0 (0.0-0.2) % Sodium 141 (137-145) mmol/L Potassium
[2021-04-01] MEDS: SODIUM CHLORIDE 0.9% IV 1,000 ML 999 ML IV CONT (17:33)
[2021-04-01] MEDS: ONDANSETRON INJ 4 MG/2 ML VIAL IV PUSH (17:34)
[2021-04-01] MEDS: KETOROLAC 30 MG/ML VIAL (*BKC) IV PUSH (17:34)
== END 2021-04-01 20:03 | disposition home or self-care (01) ==
PROVIDERS: Emergency Medicine; Emergency Provider Emergency Medicine; PCP Internal Medicine
DX: N13.2 Hydronephrosis with renal and ureteral calculous obstruction (principal); K21.9 Gastro-esophageal reflux disease without esophagitis; K58.9 Irritable bowel syndrome, unspecified; N80.9 Endometriosis, unspecified; Z87.01 Personal history of pneumonia (recurrent); Z87.440 Personal history of urinary (tract) infections; Z98.1 Arthrodesis status
CPT/HCPCS: 36415; 74176; 80048; 81001; 81025; 85025; 96361; 96374; 96375; 99284; J1885; J2405; J7030

== ENCOUNTER 2021-05-01 11:52 | Outpatient (CLI) | payer OTHER, SELFPAY ==
[2021-05-01 12:25] LABS: Anion Gap 14 mmol/L (8-16); Blood Urea Nitrogen 15 mg/dL (7-17); Calcium 10.2 mg/dL (8.4-10.2); Carbon Dioxide 21 mmol/L (22-30); Chloride 105 mmol/L (98-107); Estimated Glomerular Filt Rate > 60; Glucose 91 mg/dL (65-110); Potassium 4.1 mmol/L (3.4-5.0); Sodium 140 mmol/L (137-145)
[2021-05-01 12:36] LABS: Parathyroid Intact 29.2 pg/mL (7.5-53.5)
== END 2021-05-01 11:53 | disposition home or self-care (01) ==
LOC: ANHLAB 11:57
PROVIDERS: PCP Internal Medicine
DX: N20.0 Calculus of kidney (principal)
CPT/HCPCS: 36415; 80048; 83970

== ENCOUNTER 2021-08-31 09:08 | Outpatient (CLI) | payer OTHER, SELFPAY ==
[2021-08-31 09:23] LABS: Add Urine Microscopic? YES; Appearance Urine Clear (Clear); Basophils Absolute Auto 0.03 K/mm3 (0.00-0.10); Basophils Percent Auto 0.5 % (0.0-1.0); Bilirubin Urine Negative (Negative); Blood Urine 2+ (Negative); Color Urine Light Yellow (Yellow); Eosinophils Percent Auto 1.7 % (1.0-6.0); Glucose Urine UA Negative (Negative); Hematocrit 39.3 % (35.0-49.0); Hemoglobin 12.8 g/dL (12.0-15.0); Immature Granulocyte Absolute 0.01 K/mm3 (0.00-0.00); Immature Granulocyte Percent A 0.2 % (0.0-0.0); Ketones Urine Negative (Negative); Leukocyte Esterase Ur 1+ LEU/UL (Negative); Lymphocytes Absolute Auto 1.98 K/mm3 (1.10-4.50); Lymphocytes Percent Auto 33.6 % (18.0-42.0); Mean Corpuscular HGB Conc 32.6 g/dL (32.0-36.0); Mean Corpuscular Hemoglobin 30.4 pg (27.0-31.0); Mean Corpuscular Volume 93.3 fL (78.0-102.0); Mean Platelet Volume 8.9 fl (9.2-11.8); Monocytes Absolute Auto 0.37 K/mm3 (0.10-0.90); Monocytes Percent Auto 6.3 % (2.0-11.0); Neutrophils Absolute Auto 3.4 K/mm3 (1.7-7.2); Neutrophils Percent Auto 57.7 % (50.0-70.0); Nitrate Urine Negative (Negative); Platelet Count Result 232 K/mm3 (150-420); Protein Urine Negative (Negative); Red Blood Count 4.21 M/mm3 (4.20-5.40); Red Cell Distribution Width 12.1 % (11.6-14.4); Urobilinogen Urine 0.2 mg/dL (0.2-1.0); White Blood Count 5.9 K/mm3 (4.8-10.8)
[2021-08-31 09:29] LABS: Bacteria Urine Trace /hpf; Squamous Epithelial Cell Urine Few /hpf (Few)
[2021-08-31 10:22] LABS: Alanine Aminotransferase 22 U/L (14-59); Alkaline Phosphatase 70 U/L (46-116); Anion Gap 11 mmol/L (8-16); Aspartate Amino Transferase 13 U/L (15-37); Bilirubin,Total 0.4 mg/dL (0.00-1.00); Blood Urea Nitrogen 18 mg/dL (7-18); Calcium 9.1 mg/dL (8.5-10.1); Carbon Dioxide 25 mmol/L (21-32); Chloride 104 mmol/L (98-108); Cholesterol 178 mg/dL (0-200); Creatine Kinase 73 U/L (26-192); Estimated Glomerular Filt Rate > 60; Glucose 86 mg/dL (70-99); HDL Direct 53 mg/dL (40-60); LDL Cholesterol Calculated 108 mg/dL (<130); Osmolality Calculated 290 mOsm/kg (285-295); Sodium 140 mmol/L (136-145); Triglycerides 87 mg/dL (0-150)
== END 2021-08-31 09:09 | disposition home or self-care (01) ==
LOC: CHSLAB 09:11
PROVIDERS: PCP Internal Medicine; Visit Provider Internal Medicine
DX: Z00.00 Encounter for general adult medical examination without abnormal findings (principal); R82.90 Unspecified abnormal findings in urine
CPT/HCPCS: 36415; 80053; 80061; 81001; 82550; 85025; 87077; 87086; 87088

== ENCOUNTER 2021-12-08 18:29 | Emergency (ER) | payer OTHER, SELFPAY ==
--- NOTE | 2021-12-08 18:56 | ED.ANXIETY ---
HPI - Anxiety General Chief Complaint: Unspecified Stated Complaint: numbness in face and hands Time Seen by Provider: 12/08/21 18:56 Source: patient History of Present Illness HPI narrative: 31-year-old female with a history of anxiety,, chronic low back pain/ scoliosis/ status post spinal fusion, endometriosis on Depo-Provera shots for the past 4 years, IBS presents with acute onset -- numbness of lips, upper extremities and face. she has had these symptoms in the past. In the past it was associated with hypertension. -- headache -- nausea without any vomiting. -- heartburn MD complaint: anxiety Onset (ago): hour(s) ( started 1 hour ago) Symptoms: extremity numbness/tingling and perioral numbness/tingling Severity: moderate Quality: constant Place: home History of similar episodes: Yes Provoking factors: none known Relieving factors: nothing Exacerbating factors: nothing Associated symptoms: nausea/vomiting and weakness Related Data Home Medications Medication Instructions Recorded Confirmed amlodipine 2.5 mg tablet 1 tablet PO DAILY 12/08/21 12/08/21 losartan 100 mg tablet 1 tablet PO DAILY 12/08/21 12/08/21 lovastatin 20 mg tablet 1 tablet PO DAILY 12/08/21 12/08/21 Allergies Allergy/AdvReac Type Severity Reaction Status Date / Time magnesium sulfate Allergy Unknown SEIZURE Verified 12/08/21 19:02 Sulfa (Sulfonamide Allergy Unknown NAUSEA Verified 12/08/21 19:02 Antibiotics) linezolid AdvReac Unknown VOMITING Verified 12/08/21 19:02 Review of Systems Review of Systems: All systems reviewed & are unremarkable except as noted in HPI and below Constitutional: Constitutional: Reports as per HPI and Reports no additional constitutional complaints Eyes: Eyes: Reports as per HPI and Reports no additional eye complaints ENT: Reports system reviewed and no additional complaints, except as documented and Reports as per HPI Cardiovascular: Cardiovascular: Reports as per HPI and Reports no additional cardiovascular complaints Respiratory: Respiratory: Reports as per HPI and Reports no additional respiratory complaints Gastrointestinal: Gastrointestinal: Reports as per HPI and Reports no additional gastrointestinal complaints Genitourinary: Genitourinary: Reports no additional female genitourinary complaints and Reports as per HPI Musculoskeletal: Musculoskeletal: Reports no additional musculoskeletal complaints, Reports as per HPI and Reports back pain Integumentary/Breasts: Skin/Breast: Reports system reviewed and no additional complaints, except as docu and Reports as per HPI Neurologic: Reports system reviewed and no additional complaints, except as documented and Reports as per HPI Psychiatric: Psychiatric: Reports no additional psychiatric complaints, Reports as per HPI and Reports anxiety Endocrine: Endocrine: Reports no additional endocrine complaints and Reports as per HPI Hematologic/Lymphatic: Hematologic/Lymphatic: Reports no additional hematologic/lymphatic complaints and Reports as per HPI Allergic/Immunologic: Allergic/Immunologic: Reports no additional allergic/immunologic complaints and Reports as per HPI PMFSH Past Medical History Medical History Acute unilateral obstructive uropathy Anemia Anxiety Bronchitis Chronic back pain Endometriosis GERD (gastroesophageal reflux disease) History of blood transfusion Irritable bowel Pneumonia Scoliosis Seasonal allergies Seizure UTI (urinary tract infection) Surgical History Surgical History History of laparoscopy History of spinal fusion Social History Social History Smoking status: Never smoker Gender identity (if verbalized by the patient): Female Exam Const: General: healthy appearing, no acute distress and alert Nutritional Appearance: well nourished O
[2021-12-08 18:58] VITALS: BP 151/94; PULSE 102; RESP 16; TEMP 36.4; O2SAT 98
[2021-12-08 20:16] VITALS: O2SAT 99
[2021-12-08 20:30] VITALS: O2SAT 100
[2021-12-08 20:35] LABS: Basophils Absolute Auto 0.02 K/mm3 (0.00-0.10); Basophils Percent Auto 0.3 % (0.0-1.0); Eosinophils Absolute Auto 0.05 K/mm3 (0.02-0.50); Eosinophils Percent Auto 0.7 % (1.0-6.0); Hematocrit 37.8 % (35.0-49.0); Hemoglobin 12.5 g/dL (12.0-15.0); Immature Granulocyte Absolute 0.03 K/mm3 (0.00-0.00); Immature Granulocyte Percent A 0.4 % (0.0-0.0); Lymphocytes Absolute Auto 1.34 K/mm3 (1.10-4.50); Lymphocytes Percent Auto 18.7 % (18.0-42.0); Mean Corpuscular HGB Conc 33.1 g/dL (32.0-36.0); Mean Corpuscular Hemoglobin 31.1 pg (27.0-31.0); Mean Platelet Volume 9.2 fl (9.2-11.8); Monocytes Absolute Auto 0.47 K/mm3 (0.10-0.90); Monocytes Percent Auto 6.6 % (2.0-11.0); Neutrophils Absolute Auto 5.2 K/mm3 (1.7-7.2); Neutrophils Percent Auto 73.3 % (50.0-70.0); Platelet Count Result 223 K/mm3 (150-420); Red Blood Count 4.02 M/mm3 (4.20-5.40); Red Cell Distribution Width 12.1 % (11.6-14.4); White Blood Count 7.2 K/mm3 (4.8-10.8)
[2021-12-08 20:39] VITALS: BP 136/73; O2SAT 100
[2021-12-08 20:43] LABS: Add Urine Microscopic? YES; Appearance Urine Clear (Clear); Bilirubin Urine Negative (Negative); Blood Urine 3+ (Negative); Color Urine Yellow (Yellow); Glucose Urine UA Negative (Negative); Ketones Urine Negative (Negative); Leukocyte Esterase Ur Negative (Negative); Nitrate Urine Negative (Negative); Protein Urine Negative (Negative); Specific Grav Ur >= 1.030 (1.010-1.020); Urobilinogen Urine 0.2 mg/dL (0.2-1.0); pH Urine 5.5 (5.0-8.0)
[2021-12-08 20:48] LABS: Bacteria Urine Trace /hpf; Mucus Urine Few /lpf; Squamous Epithelial Cell Urine Few /hpf (Few)
[2021-12-08 20:48] LABS: Prothrombin Time 10.5 Seconds (9.50-12.10)
[2021-12-08 20:50] LABS: Alanine Aminotransferase 21 U/L (14-59); Albumin Level 3.7 g/dL (3.4-5.0); Alkaline Phosphatase 76 U/L (46-116); Anion Gap 8 mmol/L (8-16); Aspartate Amino Transferase 10 U/L (15-37); Bilirubin,Total 0.3 mg/dL (0.00-1.00); Blood Urea Nitrogen 17 mg/dL (7-18); Calcium 9.3 mg/dL (8.5-10.1); Carbon Dioxide 24 mmol/L (21-32); Chloride 107 mmol/L (98-108); Estimated Glomerular Filt Rate > 60; Glucose 130 mg/dL (70-99); Osmolality Calculated 291 mOsm/kg (285-295); Potassium 3.9 mmol/L (3.5-5.1); Sodium 139 mmol/L (136-145); Total Protein 7.3 g/dL (6.4-8.2)
[2021-12-08 20:55] LABS: Lactic Acid Reflex 2.3 mmol/L (0.4-2.0)
[2021-12-08 21:13] LABS: Lipase 91 U/L (73-393); Thyroid Stimulating Hormone 2.07 uIU/mL (0.36-3.74); Troponin I 4.1 ng/L (0.00-60.4)
--- NOTE | 2021-12-08 21:28 | ED.GENADULT ---
HPI - General Adult General Chief complaint: Unspecified Stated complaint: numbness in face and hands Time Seen by Provider: 12/08/21 18:56 Source: patient Related Data Home Medications Medication Instructions Recorded Confirmed amlodipine 2.5 mg tablet 1 tablet PO DAILY 12/08/21 12/08/21 losartan 100 mg tablet 1 tablet PO DAILY 12/08/21 12/08/21 lovastatin 20 mg tablet 1 tablet PO DAILY 12/08/21 12/08/21 Allergies Allergy/AdvReac Type Severity Reaction Status Date / Time magnesium sulfate Allergy Unknown SEIZURE Verified 12/08/21 19:02 Sulfa (Sulfonamide Allergy Unknown NAUSEA Verified 12/08/21 19:02 Antibiotics) linezolid AdvReac Unknown VOMITING Verified 12/08/21 19:02 [facility] Past Medical History Medical History Acute unilateral obstructive uropathy Anemia Anxiety Bronchitis Chronic back pain Endometriosis GERD (gastroesophageal reflux disease) History of blood transfusion Irritable bowel Pneumonia Scoliosis Seasonal allergies Seizure UTI (urinary tract infection) Surgical History Surgical History History of laparoscopy History of spinal fusion Social History Social History Smoking status: Never smoker Gender identity (if verbalized by the patient): Female Course Vital Signs Vital signs: Vital Signs Temperature 36.4 C L 12/08/21 18:58 Pulse Rate 102 H 12/08/21 18:58 Respiratory Rate 16 12/08/21 18:58 Blood Pressure 151/94 H 12/08/21 18:58 Pulse Oximetry 98 12/08/21 18:58 Oxygen Delivery Room Air 12/08/21 18:58 Temperature 36.4 C L 12/08/21 18:58 Pulse Rate 102 H 12/08/21 18:58 Respiratory Rate 16 12/08/21 18:58 Blood Pressure 136/73 12/08/21 20:39 Pulse Oximetry 100 12/08/21 20:39 Oxygen Delivery Room Air 12/08/21 18:58 Medical Decision Making Vital Signs Vital Signs: Vital Signs Temperature 36.4 C L 12/08/21 18:58 Pulse Rate 102 H 12/08/21 18:58 Respiratory Rate 16 12/08/21 18:58 Blood Pressure 151/94 H 12/08/21 18:58 Pulse Oximetry 98 12/08/21 18:58 Oxygen Delivery Room Air 12/08/21 18:58 Temperature 36.4 C L 12/08/21 18:58 Pulse Rate 102 H 12/08/21 18:58 Respiratory Rate 16 12/08/21 18:58 Blood Pressure 136/73 12/08/21 20:39 Pulse Oximetry 100 12/08/21 20:39 Oxygen Delivery Room Air 12/08/21 18:58 Lab Data Result diagrams: 12/08/21 20:31 12/08/21 20:31 Labs: Lab Results 12/08/21 12/08/21 12/08/21 Range/Units 20:31 20:31 20:31 WBC 7.2 (4.8-10.8) K/mm3 RBC 4.02 L (4.20-5.40) M/mm3 Hgb 12.5 (12.0-15.0) g/dL Hct 37.8 (35.0-49.0) % MCV 94.0 (78.0-102.0) fL MCH 31.1 H (27.0-31.0) pg MCHC 33.1 (32.0-36.0) g/dL RDW 12.1 (11.6-14.4) % Plt Count 223 (150-420) K/mm3 MPV 9.2 (9.2-11.8) fl Immature Gran % (Auto) 0.4 H (0.0-0.0) % Neut % (Auto) 73.3 H (50.0-70.0) % Lymph % (Auto) 18.7 (18.0-42.0) % [place] % (Auto) 6.6 (2.0-11.0) % Eos % (Auto) 0.7 L (1.0-6.0) % Baso % (Auto) 0.3 (0.0-1.0) % Lymph # (Auto) 1.34 (1.10-4.50) K/mm3 [place] # (Auto) 0.47 (0.10-0.90) K/mm3 Eos # (Auto) 0.05 (0.02-0.50) K/mm3 Baso # (Auto) 0.02 (0.00-0.10) K/mm3 Abs Immat Gran (auto) 0.03 H (0.00-0.00) K/mm3 Absolute Neuts (auto) 5.2 (1.7-7.2) K/mm3 Absolute Nucleated RBC 0.00 (0.00-0.00) K/mm3 Nucleated RBC % 0.0 (0-0.0) % PT (9.50-12.10) Seconds INR Sodium 139 (136-145) mmol/L Potassium 3.9 (3.5-5.1) mmol/L Chloride 107 (98-108) mmol/L Carbon Dioxide 24 (21-32) mmol/L Anion Gap 8 (8-16) mmol/L BUN 17 (7-18) mg/dL Creatinine 0.76 (0.55-1.02) mg/dL Estim Creat Clear Calc Not Reportable Estimated GFR > 60 (59 - ) Glucose 130 H (70-99) mg/dL Calc
[2021-12-08 23:32] LABS: Reflex Lactic Acid Yes or No Add Lactic
== END 2021-12-08 21:44 | disposition home or self-care (01) ==
PROVIDERS: Emergency Provider Internal Medicine Critical Care Medicine; PCP Internal Medicine
DX: R51.9 Headache, unspecified (principal); F41.9 Anxiety disorder, unspecified
CPT/HCPCS: 36415; 80053; 81001; 83605; 83690; 84443; 84484; 85025; 85610; 99283

== ENCOUNTER 2022-02-17 08:57 | Outpatient (CLI) | payer OTHER, SELFPAY ==
[2022-02-17 09:15] LABS: Basophils Absolute Auto 0.02 K/mm3 (0.00-0.10); Basophils Percent Auto 0.4 % (0.0-1.0); Eosinophils Absolute Auto 0.04 K/mm3 (0.02-0.50); Eosinophils Percent Auto 0.7 % (1.0-6.0); Hematocrit 40.3 % (35.0-49.0); Immature Granulocyte Absolute 0.01 K/mm3 (0.00-0.00); Immature Granulocyte Percent A 0.2 % (0.0-0.0); Lymphocytes Absolute Auto 1.77 K/mm3 (1.10-4.50); Lymphocytes Percent Auto 32.7 % (18.0-42.0); Mean Corpuscular HGB Conc 32.3 g/dL (32.0-36.0); Mean Corpuscular Hemoglobin 29.7 pg (27.0-31.0); Mean Corpuscular Volume 92.2 fL (78.0-102.0); Mean Platelet Volume 9.1 fl (9.2-11.8); Monocytes Absolute Auto 0.34 K/mm3 (0.10-0.90); Monocytes Percent Auto 6.3 % (2.0-11.0); Neutrophils Absolute Auto 3.2 K/mm3 (1.7-7.2); Neutrophils Percent Auto 59.7 % (50.0-70.0); Platelet Count Result 260 K/mm3 (150-420); Red Blood Count 4.37 M/mm3 (4.20-5.40); Red Cell Distribution Width 12.3 % (11.6-14.4); White Blood Count 5.4 K/mm3 (4.8-10.8)
[2022-02-17 09:16] LABS: Add Urine Microscopic? YES; Appearance Urine Clear (Clear); Bilirubin Urine Negative (Negative); Blood Urine 3+ (Negative); Color Urine Light Yellow (Yellow); Glucose Urine UA Negative (Negative); Ketones Urine Negative (Negative); Leukocyte Esterase Ur Trace LEU/UL (Negative); Nitrate Urine Negative (Negative); Protein Urine Negative (Negative); Specific Grav Ur >= 1.030 (1.010-1.020); Urobilinogen Urine 0.2 mg/dL (0.2-1.0); pH Urine 5.5 (5.0-8.0)
[2022-02-17 09:29] LABS: Squamous Epithelial Cell Urine Few /hpf (Few)
[2022-02-17 09:30] LABS: Bacteria Urine Trace /hpf
[2022-02-17 09:53] LABS: Alanine Aminotransferase 22 U/L (14-59); Alkaline Phosphatase 74 U/L (46-116); Anion Gap 9 mmol/L (8-16); Aspartate Amino Transferase 16 U/L (15-37); Bilirubin,Total 0.4 mg/dL (0.00-1.00); Blood Urea Nitrogen 15 mg/dL (7-18); Calcium 9.3 mg/dL (8.5-10.1); Carbon Dioxide 24 mmol/L (21-32); Chloride 105 mmol/L (98-108); Cholesterol 222 mg/dL (0-200); Creatine Kinase 152 U/L (26-192); Estimated Glomerular Filt Rate > 60; Free T3 2.77 pg/mL (2.18-3.98); Glucose 101 mg/dL (70-99); HDL Direct 62 mg/dL (40-60); LDL Cholesterol Calculated 144 mg/dL (<130); Osmolality Calculated 286 mOsm/kg (285-295); Potassium 4.2 mmol/L (3.5-5.1); Sodium 138 mmol/L (136-145); Thyroid Stimulating Hormone 1.55 uIU/mL (0.36-3.74); Total Protein 7.7 g/dL (6.4-8.2); Triglycerides 82 mg/dL (0-150)
== END 2022-02-17 08:58 | disposition home or self-care (01) ==
LOC: CHSLAB 08:59
PROVIDERS: PCP Internal Medicine; Visit Provider Internal Medicine
DX: E78.2 Mixed hyperlipidemia (principal); I10 Essential (primary) hypertension; R55 Syncope and collapse; R31.9 Hematuria, unspecified
CPT/HCPCS: 36415; 80053; 80061; 81001; 82550; 83036; 84439; 84443; 84481; 85025; 87077; 87086; 87088

== ENCOUNTER 2022-12-04 17:02 | Emergency (ER) | payer OTHER, SELFPAY ==
--- NOTE | ~2022-12-04 | CT_ITS ---
EXAMINATION: CT abdomen pelvis wo con DATE: 12/04/2022 19:10 INDICATION: right flank pain, hx of kidney stones TECHNIQUE: Computed tomography (CT) of the abdomen and pelvis was performed without intravenous contr ast. Automated exposure control and iterative reconstruction technique were employed. The dose-length product was 179.19 mGy-cm. COMPARISON: 04/01/2021. FINDINGS: Exam limited by metal artifact from extensive spinal hardware. Lower thorax: Unremarkable Liver: Normal. Biliary/Gallbladder: Gallbladder is normal. No bile duct dilation. Pancreas: No mass or duct dilation. Spleen: Normal. Adrenals:No mass. Kidneys: No suspicious mass. Mild right pelviectasis and caliectasis. Calcification at the right UPJ measuring at least 6 mm in maximum diameter, but partially obscured by metal artifact. GI tract: No small or large bowel dilation. Normal appendix. Mesentery/Peritoneum: No ascites, mass, or free air. Retroperitoneum: No mass. Pelvis: Pelvic organs are within normal limits. Soft Tissues: Soft tissues and body wall unremarkable. Bones: No acute osseous finding. Partially visualized uncomplicated appearing thoracolumbar fusion h ardware. IMPRESSION: Right UPJ stone causing mild obstructive uropathy. The stone measures at least 6 mm in maximum diamet er, but is partially obscured by metal artifact. Reviewed, dictated and finalized at [facility]. IMPRESSION: Right UPJ stone causing mild obstructive uropathy. The stone measures at least 6 mm in maximum diameter, but is partially obscured by metal artifact.
[2022-12-04 17:07] VITALS: BP 133/94; PULSE 91; RESP 20; TEMP 37; O2SAT 98
[2022-12-04 17:21] VITALS: BP 133/94; PULSE 91; RESP 20; TEMP 37; O2SAT 98
[2022-12-04] MEDS: KETOROLAC 30 MG/ML VIAL (*BKC) IV PUSH (18:33)
[2022-12-04] MEDS: SODIUM CHLORIDE 0.9% IV 1,000 ML 999 ML IV CONT (18:33)
[2022-12-04] MEDS: ONDANSETRON INJ 4 MG/2 ML VIAL IV PUSH ×2 (18:33→20:53)
[2022-12-04 18:39] LABS: Hematocrit 36.4 % (35.0-49.0); Hemoglobin 11.9 g/dL (12.0-15.0); Mean Corpuscular HGB Conc 32.7 g/dL (32.0-36.0); Mean Corpuscular Hemoglobin 30.6 pg (27.0-31.0); Mean Corpuscular Volume 93.6 fL (78.0-102.0); Platelet Count Result 261 K/mm3 (150-420); Red Blood Count 3.89 M/mm3 (4.20-5.40); Red Cell Distribution Width 12.4 % (11.6-14.4); White Blood Count 9.1 K/mm3 (4.8-10.8)
[2022-12-04 18:40] LABS: Appearance Urine Clear (Clear); Bilirubin Urine Negative (Negative); Blood Urine 2+ (Negative); Color Urine Light Yellow (Yellow); Glucose Urine UA Negative (Negative); Ketones Urine Negative (Negative); Leukocyte Esterase Ur Trace LEU/UL (Negative); Nitrate Urine Negative (Negative); Protein Urine Negative (Negative); Specific Grav Ur >= 1.030 (1.010-1.020); Urobilinogen Urine 0.2 mg/dL (0.2-1.0)
[2022-12-04 18:52] LABS: Add Urine Microscopic? YES; Alanine Aminotransferase 23 U/L (14-59); Albumin Level 3.7 g/dL (3.4-5.0); Alkaline Phosphatase 69 U/L (46-116); Anion Gap 13 mmol/L (8-16); Aspartate Amino Transferase 11 U/L (15-37); Bilirubin,Total 0.3 mg/dL (0.00-1.00); Blood Urea Nitrogen 20 mg/dL (7-18); Calcium 9.2 mg/dL (8.5-10.1); Carbon Dioxide 23 mmol/L (21-32); Chloride 103 mmol/L (98-108); Estimated CRCL calculation 65 ml/min; Estimated Glomerular Filt Rate > 60; Glucose 122 mg/dL (70-99); Osmolality Calculated 291 mOsm/kg (285-295); Potassium 3.8 mmol/L (3.5-5.1); Sodium 139 mmol/L (136-145); Total Protein 7.2 g/dL (6.4-8.2)
[2022-12-04 18:53] LABS: Amorphous Sediment Urine Few; Renal Epithelial Cells Urine Few /hpf; WBC Urine 0-3 /hpf (0-3)
[2022-12-04 18:54] LABS: Bacteria Urine 1+ /hpf; Mucus Urine Heavy /lpf
[2022-12-04 18:58] LABS: Pregnancy On Board Control Positive; Urine Pregnancy Test Negative
--- NOTE | 2022-12-04 20:38 | ED.GENADULT ---
HPI - General Adult General Chief complaint: Urogenital-Female Stated complaint: Kidney Stone Time Seen by Provider: 12/04/22 18:10 Source: patient Mode of arrival: ambulatory Limitations: no limitations History of Present Illness HPI narrative: patient 32-year-old white female with history of kidney stones complains of right flank pain radiating to right upper quadrant started 11:00 a.m. today achy 6 out 10 pain. She took a [place] at 4:00 a.m.. complains of nausea without vomiting no diarrhea says is burning When she voids. No hematuria or dysuria. Denies any coughs sore throat runny nose fever rash or itching bleeding or bruising swelling lumps or bumps problems walking talking seeing or hearing cancer she does not remember when her last menstrual period was as she is on Depo shots. She has had about 10 kidney stones before the largest she has passes a 10 mm stone. Past medical history : kidney stones hypertension endometriosis. No history of heart disease lung disease diabetes stroke anemia thyroid disease or hyperlipidemia. Related Data Home Medications Medication Instructions Recorded Confirmed losartan 100 mg tablet 1 tablet PO DAILY 12/08/21 12/04/22 Allergies Allergy/AdvReac Type Severity Reaction Status Date / Time magnesium sulfate Allergy Unknown SEIZURE Verified 12/08/21 19:02 Sulfa (Sulfonamide Allergy Unknown NAUSEA Verified 12/08/21 19:02 Antibiotics) linezolid AdvReac Unknown VOMITING Verified 12/08/21 19:02 Review of Systems Review of Systems: All systems reviewed & are unremarkable except as noted in HPI and below PMFSH Past Medical History Medical History Acute unilateral obstructive uropathy Anemia Anxiety Bronchitis Chronic back pain Endometriosis GERD (gastroesophageal reflux disease) History of blood transfusion Irritable bowel Pneumonia Scoliosis Seasonal allergies Seizure UTI (urinary tract infection) Surgical History Surgical History History of laparoscopy History of spinal fusion Social History Social History Smoking status: Never smoker Gender identity (if verbalized by the patient): Female Exam Narrative: White female no apparent distress.? Head normocephalic, atraumatic.? Eyes conjunctiva pink sclera nonicteric.? Extraocular movements are intact.? Ears externally normal.? Oropharynx is clear with moist mucous membranes without exudates.? Neck is supple nontender no lymphadenopathy.? Back is nontender.? Lungs are clear.? Heart is regular rate and rhythm without murmurs gallops or rubs.? Chest wall is nontender.? Abdomen is soft and nontender no hepatosplenomegaly or masses no CVA tenderness no abdominal bruits.? Extremities no cyanosis clubbing or edema.? Skin is warm and dry without rashes or lesions.? Neurological patient is alert and oriented x4.? Motor and sensory grossly intact.? Gait is normal. Course Vital Signs Vital signs: Vital Signs Temperature 37.0 C 12/04/22 17:07 Pulse Rate 91 12/04/22 17:07 Respiratory Rate 20 12/04/22 17:07 Blood Pressure 133/94 H 12/04/22 17:07 Pulse Oximetry 98 12/04/22 17:07 Oxygen Delivery Room Air 12/04/22 17:07 Temperature 37.0 C 12/04/22 17:21 Pulse Rate 91 12/04/22 17:21 Respiratory Rate 20 12/04/22 17:21 Blood Pressure 133/94 H 12/04/22 17:21 Pulse Oximetry 98 12/04/22 17:21 Oxygen Delivery Room Air 12/04/22 17:21 Medical Decision Making MDM Narrative Medical decision making narrative: Patient was placed in room 6 history and physical was performed IV was started she was given Toradol 30 mg IV Zofran [address] abdomen and pelvis was done which showed a 4 mm stone in her left ureteropelvic junction. Urinalysis showed 11-20 RBCs +1 bacteria specific gravity of 1030, +1 bacteria, hemoglobin 11
[2022-12-04 21:26] VITALS: BP 124/98; PULSE 93; RESP 17; TEMP 36.7; O2SAT 100
== END 2022-12-04 21:29 | disposition home or self-care (01) ==
PROVIDERS: Emergency Provider Emergency Medicine
DX: N20.1 Calculus of ureter (principal)
CPT/HCPCS: 36415; 74176; 80053; 81001; 81025; 85027; 96361; 96374; 96375; 99284; J1885; J2405; J7030

== ENCOUNTER 2022-12-30 08:44 | Outpatient (CLI) | payer OTHER, SELFPAY ==
[2022-12-30 09:09] LABS: Appearance Urine Clear (Clear); Basophils Absolute Auto 0.01 K/mm3 (0.00-0.10); Basophils Percent Auto 0.2 % (0.0-1.0); Bilirubin Urine Negative (Negative); Blood Urine 2+ (Negative); Color Urine Light Yellow (Yellow); Eosinophils Absolute Auto 0.13 K/mm3 (0.02-0.50); Eosinophils Percent Auto 2.3 % (1.0-6.0); Glucose Urine UA Negative (Negative); Hematocrit 39.5 % (35.0-49.0); Hemoglobin 12.6 g/dL (12.0-15.0); Immature Granulocyte Absolute 0.01 K/mm3 (0.00-0.00); Immature Granulocyte Percent A 0.2 % (0.0-0.0); Ketones Urine Negative (Negative); Leukocyte Esterase Ur 1+ LEU/UL (Negative); Lymphocytes Absolute Auto 1.98 K/mm3 (1.10-4.50); Lymphocytes Percent Auto 35.5 % (18.0-42.0); Mean Corpuscular HGB Conc 31.9 g/dL (32.0-36.0); Mean Corpuscular Hemoglobin 30.1 pg (27.0-31.0); Mean Corpuscular Volume 94.3 fL (78.0-102.0); Mean Platelet Volume 9.1 fl (9.2-11.8); Monocytes Absolute Auto 0.32 K/mm3 (0.10-0.90); Monocytes Percent Auto 5.7 % (2.0-11.0); Neutrophils Absolute Auto 3.1 K/mm3 (1.7-7.2); Neutrophils Percent Auto 56.1 % (50.0-70.0); Nitrate Urine Negative (Negative); Platelet Count Result 261 K/mm3 (150-420); Protein Urine Negative (Negative); Red Blood Count 4.19 M/mm3 (4.20-5.40); Red Cell Distribution Width 12.4 % (11.6-14.4); Urobilinogen Urine 0.2 mg/dL (0.2-1.0); White Blood Count 5.6 K/mm3 (4.8-10.8)
[2022-12-30 09:18] LABS: Add Urine Microscopic? YES; Bacteria Urine Trace /hpf; Squamous Epithelial Cell Urine Few /hpf (Few)
[2022-12-30 09:30] LABS: Hemoglobin A1C 4.9 % (<5.7)
[2022-12-30 09:51] LABS: Alanine Aminotransferase 25 U/L (14-59); Albumin Level 4.1 g/dL (3.4-5.0); Alkaline Phosphatase 71 U/L (46-116); Anion Gap 12 mmol/L (8-16); Aspartate Amino Transferase 11 U/L (15-37); Bilirubin,Total 0.5 mg/dL (0.00-1.00); Blood Urea Nitrogen 15 mg/dL (7-18); Calcium 9.4 mg/dL (8.5-10.1); Carbon Dioxide 25 mmol/L (21-32); Chloride 106 mmol/L (98-108); Cholesterol 203 mg/dL (0-200); Creatine Kinase 64 U/L (26-192); Estimated Glomerular Filt Rate > 60; Free T3 2.97 pg/mL (2.18-3.98); Free T4 Free Thyroxine 1.14 ng/dL (0.76-1.46); Glucose 90 mg/dL (70-99); HDL Direct 52 mg/dL (40-60); LDL Cholesterol Calculated 127 mg/dL (<130); Osmolality Calculated 296 mOsm/kg (285-295); Potassium 4.3 mmol/L (3.5-5.1); Sodium 143 mmol/L (136-145); Thyroid Stimulating Hormone 2.43 uIU/mL (0.36-3.74); Total Protein 7.2 g/dL (6.4-8.2); Triglycerides 119 mg/dL (0-150)
== END 2022-12-30 08:45 | disposition home or self-care (01) ==
LOC: CHSLAB 08:49
PROVIDERS: PCP Internal Medicine; Visit Provider Internal Medicine
DX: N39.0 Urinary tract infection, site not specified (principal); E78.5 Hyperlipidemia, unspecified; R53.83 Other fatigue; R82.90 Unspecified abnormal findings in urine
CPT/HCPCS: 36415; 80053; 80061; 81001; 82550; 83036; 84439; 84443; 84481; 85025; 87077; 87086; 87088

== ENCOUNTER 2023-06-20 11:01 | Emergency (ER) | payer OTHER, SELFPAY ==
--- NOTE | ~2023-06-20 | CT_ITS ---
EXAMINATION: CT abdomen pelvis wo con DATE: 06/20/2023 12:10 INDICATION: Left flank pain and mid abdomen pain TECHNIQUE: Computed tomography (CT) of the abdomen and pelvis was performed without intravenous contr ast. The dose-length product was 353.06 mGy-cm. Automated exposure control and iterative reconstructi on technique were employed. COMPARISON: CT dated 12/04/2022. FINDINGS: The lung bases are unremarkable. Heart size normal. No significant pleural or pericardial e ffusion. The liver, spleen, pancreas, adrenal glands and kidneys are unremarkable. Gallbladder is pre sent. Small fat-containing umbilical hernia. No abnormal pelvic masses or fluid collections. There is spinal fusion of the lower thoracic and upper lumbar spine partially visualized. No free air or free fluid. Small fat-containing umbilical hernia. IMPRESSION: 1. No acute abdominal abnormality. Reviewed, dictated and finalized at [facility]. [facility]
[2023-06-20 11:02] VITALS: BP 134/78; PULSE 94; RESP 19; TEMP 36.8; O2SAT 95
--- NOTE | 2023-06-20 11:26 | ED.GENADULT ---
HPI - General Adult General Chief complaint: Abdominal Pain Stated complaint: kidney stone Time Seen by Provider: 06/20/23 11:18 History of Present Illness HPI narrative: 22yo woman h/o recurrent kidney stones presents with left upper quadrant abdominal pain with nausea, onset this morning. Pain not in the back like with her typical kidney stone symptoms. +darkened urine. No fevers or chills or dysuria. Related Data Home Medications Medication Instructions Recorded Confirmed losartan 100 mg tablet 1 tablet PO DAILY 12/08/21 06/20/23 amlodipine 2.5 mg tablet 2.5 mg PO DAILY 06/20/23 06/20/23 lovastatin 20 mg tablet 20 mg PO DAILY 06/20/23 06/20/23 Allergies Allergy/AdvReac Type Severity Reaction Status Date / Time magnesium sulfate Allergy Unknown SEIZURE Verified 06/20/23 11:24 Sulfa (Sulfonamide Allergy Unknown NAUSEA Verified 06/20/23 11:24 Antibiotics) linezolid AdvReac Unknown VOMITING Verified 06/20/23 11:24 Review of Systems Review of Systems: All systems reviewed & are unremarkable except as noted in HPI and below Constitutional: Constitutional: Denies chills and Denies fever(s) ENT: Denies dizziness Cardiovascular: Cardiovascular: Denies chest pain Respiratory: Respiratory: Denies dyspnea Gastrointestinal: Gastrointestinal: Reports abdominal pain Musculoskeletal: Musculoskeletal: Denies back pain PMFSH Past Medical History Medical History Acute unilateral obstructive uropathy Anemia Anxiety Bronchitis Chronic back pain Endometriosis GERD (gastroesophageal reflux disease) History of blood transfusion Irritable bowel Pneumonia Scoliosis Seasonal allergies Seizure UTI (urinary tract infection) Surgical History Surgical History History of laparoscopy History of spinal fusion Social History Social History Smoking status: Never smoker Gender identity (if verbalized by the patient): Female Exam Const: General: healthy appearing and no acute distress Nutritional Appearance: well nourished Eyes: Conjunctivae: conjunctivae normal Resp: Effort & Inspection: normal respiratory effort Cardio: Rate: regular rate GI: Inspection: non-distended GI Palp: Yes Soft to palpation and No Tenderness to palpation present (GI) Skin: General skin exam: normal color, no jaundice and no pallor Extrem: General: no clubbing, cyanosis or edema Course Vital Signs Vital signs: Vital Signs Temperature 36.8 C 06/20/23 11:02 Pulse Rate 94 06/20/23 11:02 Respiratory Rate 19 06/20/23 11:02 Blood Pressure 134/78 06/20/23 11:02 Pulse Oximetry 95 06/20/23 11:02 Oxygen Delivery Room Air 06/20/23 11:02 Temperature 36.8 C 06/20/23 11:02 Pulse Rate 94 06/20/23 11:02 Respiratory Rate 19 06/20/23 11:02 Blood Pressure 134/78 06/20/23 11:02 Pulse Oximetry 95 06/20/23 11:02 Oxygen Delivery Room Air 06/20/23 11:02 Medical Decision Making MDM Narrative Medical decision making narrative: acute LUQ DDx renal colic, cystitis/pyelonephritis, pancreatitis, gastritis, colitis, indigestion. Screen blood, urine, CT. Vital Signs Vital Signs: Vital Signs Temperature 36.8 C 06/20/23 11:02 Pulse Rate 94 06/20/23 11:02 Respiratory Rate 19 06/20/23 11:02 Blood Pressure 134/78 06/20/23 11:02 Pulse Oximetry 95 06/20/23 11:02 Oxygen Delivery Room Air 06/20/23 11:02 Temperature 36.8 C 06/20/23 11:02 Pulse Rate 94 06/20/23 11:02 Respiratory Rate 19 06/20/23 11:02 Blood Pressure 134/78 06/20/23 11:02 Pulse Oximetry 95 06/20/23 11:02 Oxygen Delivery Room Air 06/20/23 11:02 Lab Data 06/20/23 11:36 06/20/23 11:36 Labs: Lab Results 06/20/23 06/20/23 06/20/23 Range/Units 11:23 11:24 11:36 WBC 6.5 (
[2023-06-20 11:33] LABS: Appearance Urine Cloudy (Clear); Bilirubin Urine Negative (Negative); Blood Urine 3+ (Negative); Color Urine Yellow (Yellow); Glucose Urine UA Negative (Negative); Ketones Urine Negative (Negative); Leukocyte Esterase Ur Trace LEU/UL (Negative); Nitrate Urine Negative (Negative); Protein Urine 1+ (Negative); Specific Grav Ur 1.025 (1.010-1.020); Urobilinogen Urine 0.2 mg/dL (0.2-1.0)
[2023-06-20 11:36] LABS: Pregnancy On Board Control Positive; Urine Pregnancy Test Negative
[2023-06-20 11:39] LABS: Basophils Absolute Auto 0.02 K/mm3 (0.00-0.10); Basophils Percent Auto 0.3 % (0.0-1.0); Eosinophils Absolute Auto 0.09 K/mm3 (0.02-0.50); Eosinophils Percent Auto 1.4 % (1.0-6.0); Hemoglobin 12.6 g/dL (12.0-15.0); Immature Granulocyte Absolute 0.01 K/mm3 (0.00-0.00); Immature Granulocyte Percent A 0.2 % (0.0-0.0); Lymphocytes Absolute Auto 2.13 K/mm3 (1.10-4.50); Lymphocytes Percent Auto 32.7 % (18.0-42.0); Mean Corpuscular HGB Conc 32.3 g/dL (32.0-36.0); Mean Corpuscular Hemoglobin 29.5 pg (27.0-31.0); Mean Corpuscular Volume 91.3 fL (78.0-102.0); Mean Platelet Volume 8.7 fl (9.2-11.8); Monocytes Absolute Auto 0.34 K/mm3 (0.10-0.90); Monocytes Percent Auto 5.2 % (2.0-11.0); Neutrophils Absolute Auto 3.9 K/mm3 (1.7-7.2); Neutrophils Percent Auto 60.2 % (50.0-70.0); Platelet Count Result 245 K/mm3 (150-420); Red Blood Count 4.27 M/mm3 (4.20-5.40); White Blood Count 6.5 K/mm3 (4.8-10.8)
[2023-06-20 11:40] LABS: Add Urine Microscopic? YES; RBC Urine >75 /hpf (0-2)
[2023-06-20] MEDS: KETOROLAC (*BKC) 60 MG/2 ML VIAL IM (11:40)
[2023-06-20] MEDS: PROMETHAZINE HCL 25 MG TABLET PO (11:40)
[2023-06-20] MEDS: ONDANSETRON HCL ODT 4 MG TABLET PO (11:40)
[2023-06-20 11:41] LABS: Bacteria Urine 4+ /hpf; Budding Yeast Urine Present /hpf; Squamous Epithelial Cell Urine Rare /hpf (Few); WBC Urine 0-3 /hpf (0-3)
[2023-06-20 11:55] LABS: Albumin Level 3.8 g/dL (3.4-5.0); Alkaline Phosphatase 77 U/L (46-116); Anion Gap 13 mmol/L (8-16); Bilirubin,Total 0.4 mg/dL (0.00-1.00); Blood Urea Nitrogen 14 mg/dL (7-18); Calcium 9.2 mg/dL (8.5-10.1); Carbon Dioxide 25 mmol/L (21-32); Chloride 104 mmol/L (98-108); Estimated CRCL calculation 74 ml/min; Estimated Glomerular Filt Rate > 60; Glucose 90 mg/dL (70-99); Lipase 24 U/L (16-77); Osmolality Calculated 294 mOsm/kg (285-295); Potassium 4.1 mmol/L (3.5-5.1); Sodium 142 mmol/L (136-145); Total Protein 7.7 g/dL (6.4-8.2)
[2023-06-20 12:00] LABS: Lactic Acid Reflex 1.9 mmol/L (0.4-2.0)
[2023-06-20 12:08] LABS: Alanine Aminotransferase 13 U/L (14-59); Aspartate Amino Transferase 12 U/L (15-37)
[2023-06-20 12:13] VITALS: BP 125/68; PULSE 68; RESP 16; O2SAT 100
== END 2023-06-20 12:58 | disposition home or self-care (01) ==
PROVIDERS: Emergency Provider Emergency Medicine; PCP Internal Medicine
DX: N30.01 Acute cystitis with hematuria (principal); Z79.899 Other long term (current) drug therapy
CPT/HCPCS: 36415; 74176; 80053; 81001; 81025; 83605; 83690; 85025; 96372; 99284; A9270; J1885

== ENCOUNTER 2023-06-24 21:01 | Emergency (ER) | payer OTHER, SELFPAY ==
--- NOTE | ~2023-06-24 | CT_ITS ---
EXAMINATION: CT abdomen pelvis w con DATE: 06/24/2023 23:40 INDICATION: Right lower quadrant abdominal pain TECHNIQUE: Computed tomography (CT) of the abdomen and pelvis was performed with 100 cc Omnipaque 350 intravenous contrast. The dose-length product was 378.60 mGy-cm. Automated exposure control and iter ative reconstruction technique were employed. COMPARISON: CT dated 06/20/2023 FINDINGS: Lung bases unremarkable. Heart size normal. No significant pleural or pericardial effusion. The liver, spleen, pancreas, adrenal glands are unremarkable. There are small subcentimeter hypodens ities of the kidneys, most likely benign cysts. Gallbladder is contracted. Nonobstructive bowel gas p attern. The appendix is not positively visualized. There is no pericecal inflammatory change to sugg est appendicitis. No free air or free fluid. No significant vascular abnormality. No hydronephrosis. There is extensive spinal fusion of the lower thoracic and upper lumbar spine, partially visualized. No acute osseous abnormality. Small hiatal hernia. IMPRESSION: 1. No acute abdominal abnormality. Reviewed, dictated and finalized at location [facility]. [employer]
[2023-06-24 21:05] VITALS: BP 152/90; PULSE 103; RESP 18; TEMP 36.8; O2SAT 100
[2023-06-24 21:25] LABS: Basophils Percent Auto 0.3 % (0.2-1.2); Eosinophils Absolute Auto 0.1 K/mm3 (0-0.3); Eosinophils Percent Auto 1.8 % (0-4.4); Hematocrit 38.2 % (37.0-47.0); Immature Granulocyte Absolute 0.03 K/mm3 (0.00-0.031); Immature Granulocyte Percent A 0.5 % (0-0.5); Lymphocytes Percent Auto 37.5 % (18.3-44.2); Mean Corpuscular HGB Conc 31.4 g/dl (32-36); Mean Corpuscular Hemoglobin 29.5 pg (26-34); Mean Corpuscular Volume 93.9 fl (80-100); Mean Platelet Volume 8.9 fl (7.4-10.4); Monocytes Absolute Auto 0.5 K/mm3 (0.1-0.6); Monocytes Percent Auto 7.1 % (2.6-8.5); Neutrophils Absolute Auto 3.5 K/mm3 (1.3-6.7); Neutrophils Percent Auto 52.8 % (45.5-73.1); Platelet Count Result 252 k/mm3 (150-375); Red Blood Count 4.07 M/mm3 (4.2-5.4); Red Cell Distribution Width 12.1 % (11.5-14.5); White Blood Count 6.7 K/mm3 (4.5-10.0)
[2023-06-24 21:28] LABS: Appearance Urine Clear (Clear); Bacteria Urine None Seen /hpf; Bilirubin Urine Negative (Negative); Blood Urine 1+ (Negative); Color Urine Yellow (Yellow); Glucose Urine UA Negative (Negative); Ketones Urine Negative (Negative); Leukocyte Esterase Ur 2+ LEU/UL (Negative); Nitrate Urine Negative (Negative); Non Pathogenic Casts 0-2; Protein Urine Negative (Negative); Specific Grav Ur 1.015 (1.001-1.035); Squamous Epithelial Cell Urine Occasional /hpf (Few); Urobilinogen Urine 0.2 mg/dL (<2.0); pH Urine 6.5 (5.0-9.0)
[2023-06-24 21:36] LABS: Alanine Aminotransferase 15 U/L (6-35); Albumin Level 4.4 g/dL (3.5-5.1); Alkaline Phosphatase 72 U/L (38-126); Anion Gap 12 mmol/L (8-16); Aspartate Amino Transferase 20 U/L (14-36); Bilirubin,Total 0.4 mg/dL (0.2-1.3); Blood Urea Nitrogen 16 mg/dL (7-17); Calcium 9.5 mg/dL (8.4-10.2); Carbon Dioxide 20 mmol/L (22-30); Chloride 106 mmol/L (98-107); Estimated CRCL calculation 82 ml/min; Estimated Glomerular Filt Rate > 60; Glucose 115 mg/dL (65-110); Lipase 78 U/L (23-300); Potassium 3.3 mmol/L (3.4-5.0); Sodium 138 mmol/L (137-145)
[2023-06-24 21:43] LABS: Add Urine Microscopic? YES
[2023-06-24] MEDS: ONDANSETRON INJ 4 MG/2 ML VIAL IV PUSH (23:17)
[2023-06-24] MEDS: SODIUM CHLORIDE 0.9% IV 1,000 ML 999 ML IV CONT (23:17)
[2023-06-24 23:57] VITALS: O2SAT 100
[2023-06-25] VITALS (8 sets, daily range): BP systolic 115–120; BP diastolic 71–78; PULSE 88; RESP 20; O2SAT 100
--- NOTE | 2023-06-25 01:16 | ED.GENADULT ---
HPI - General Adult General Chief complaint: Abdominal Pain Stated complaint: RLQ abd pain, dx UTI Time Seen by Provider: 06/24/23 22:08 History of Present Illness HPI narrative: patient is a 32-year-old female who presents emergency department with chief complaint of abdominal pain. Patient reports that she recently was diagnosed with a urinary tract infection and reports that she was seen [facility] had a noncontrast CT scan to evaluate for possible kidney stones and was discharged follow-up with her urologist. Patient states that since then she has had some periumbilical pain is localized to the right lower quadrant patient states that she still been having some pain today and reports that she came to the emergency department to be re-evaluated. the patient was diagnosed with UTI and is currently on Bactrim Related Data Home Medications Medication Instructions Recorded Confirmed losartan 100 mg tablet 1 tablet PO DAILY 12/08/21 06/20/23 amlodipine 2.5 mg tablet 2.5 mg PO DAILY 06/20/23 06/20/23 lovastatin 20 mg tablet 20 mg PO DAILY 06/20/23 06/20/23 Allergies Allergy/AdvReac Type Severity Reaction Status Date / Time magnesium sulfate Allergy Unknown SEIZURE Verified 06/20/23 11:24 Sulfa (Sulfonamide Allergy Unknown NAUSEA Verified 06/20/23 11:24 Antibiotics) linezolid AdvReac Unknown VOMITING Verified 06/20/23 11:24 Review of Systems Review of Systems: A 10 system review of systems was completed on the patient and is negative except for what is stated in the HPI. Nursing and ancillary documentation was reviewed. PMFSH Past Medical History Medical History Acute unilateral obstructive uropathy Anemia Anxiety Bronchitis Chronic back pain Endometriosis GERD (gastroesophageal reflux disease) History of blood transfusion Irritable bowel Pneumonia Scoliosis Seasonal allergies Seizure UTI (urinary tract infection) Surgical History Surgical History History of laparoscopy History of spinal fusion Social History Social History Smoking status: Never smoker Gender identity (if verbalized by the patient): Female Exam Narrative: GENERAL: Well-appearing, well-nourished, and in no acute distress. HEAD: Normocephalic, atraumatic. EYES: PERRLA and EOMI. ENT: Nares clear, no rhinorrhea or epistaxis. Mucous membranes moist. NECK: Supple. CHEST: Clear to auscultation. No respiratory distress. HEART: Regular rate and rhythm. No murmur heard. Normal peripheral pulses. ABDOMEN: Soft, Mild tenderness to palpation of the right lower quadrant, no guarding, no rebound nondistended, normal active bowel sounds. EXTREMITIES: Normal range of motion. No edema. SKIN: Warm, dry, no rash. NEURO: No focal deficits. Alert and oriented x3. PSYCH: Normal mood and affect. Course Vital Signs Vital signs: Vital Signs Temperature 36.8 C 06/24/23 21:05 Pulse Rate 103 H 06/24/23 21:05 Respiratory Rate 18 06/24/23 21:05 Blood Pressure 152/90 H 06/24/23 21:05 Pulse Oximetry 100 06/24/23 21:05 Oxygen Delivery Room Air 06/24/23 21:05 Temperature 36.8 C 06/24/23 21:05 Pulse Rate 103 H 06/24/23 21:05 Respiratory Rate 18 06/24/23 21:05 Blood Pressure 152/90 H 06/24/23 21:05 Pulse Oximetry 100 06/24/23 21:05 Oxygen Delivery Room Air 06/24/23 21:05 Medical Decision Making MDM Narrative Medical decision making narrative: differential diagnosis includes appendicitis, diverticulitis, colitis, UTI, pyelonephritis laboratory studies were obtained on the patient which showed a white count of 6.7 electrolytes are within normal limits urinalysis showed 2+ leukocyte esterase and 6-10 white blood cells the patient is currently on Bactrim. CT scan of the abdomen pelvis
== END 2023-06-25 01:45 | disposition home or self-care (01) ==
PROVIDERS: Emergency Provider Emergency Medicine; PCP Internal Medicine
DX: N39.0 Urinary tract infection, site not specified (principal); N80.9 Endometriosis, unspecified; K21.9 Gastro-esophageal reflux disease without esophagitis; K58.9 Irritable bowel syndrome, unspecified; F41.9 Anxiety disorder, unspecified; Z98.1 Arthrodesis status; Z86.2 Personal history of diseases of the blood and blood-forming organs and certain disorders involving the immune mechanism; Z87.440 Personal history of urinary (tract) infections; Z87.01 Personal history of pneumonia (recurrent)
CPT/HCPCS: 36415; 74177; 80053; 81001; 81025; 83690; 85025; 87086; 96361; 96374; 99284; J2405; J7030; Q9967

== ENCOUNTER 2023-09-05 14:46 | Outpatient (CLI) | payer OTHER, SELFPAY ==
[2023-09-05 15:11] LABS: Basophils Absolute Auto 0.03 K/mm3 (0.00-0.10); Basophils Percent Auto 0.4 % (0.0-1.0); Eosinophils Absolute Auto 0.13 K/mm3 (0.02-0.50); Eosinophils Percent Auto 1.8 % (1.0-6.0); Hemoglobin 13.4 g/dL (12.0-15.0); Immature Granulocyte Absolute 0.02 K/mm3 (0.00-0.00); Immature Granulocyte Percent A 0.3 % (0.0-0.0); Lymphocytes Percent Auto 26.6 % (18.0-42.0); Mean Corpuscular HGB Conc 32.7 g/dL (32-36); Mean Corpuscular Hemoglobin 30.5 pg (27.0-31.0); Mean Corpuscular Volume 93.2 fL (78.0-102.0); Monocytes Absolute Auto 0.46 K/mm3 (0.10-0.90); Monocytes Percent Auto 6.4 % (2.0-11.0); Neutrophils Percent Auto 64.5 % (50.0-70.0); Platelet Count Result 299 K/mm3 (150-420); Red Cell Distribution Width 12.4 % (11.6-14.4); White Blood Count 7.1 K/mm3 (4.8-10.8)
[2023-09-05 15:35] LABS: Lactic Acid Reflex 1.7 mmol/L (0.4-2.0)
[2023-09-05 15:45] LABS: Alanine Aminotransferase 22 U/L (14-59); Alkaline Phosphatase 76 U/L (46-116); Amylase 36 U/L (25-115); Anion Gap 14 mmol/L (4-12); Aspartate Amino Transferase 15 U/L (15-37); Bilirubin,Total 0.4 mg/dL (0.00-1.00); Blood Urea Nitrogen 14 mg/dL (7-18); Calcium 8.7 mg/dL (8.5-10.1); Carbon Dioxide 23 mmol/L (21-32); Chloride 104 mmol/L (98-108); Cholesterol 212 mg/dL (0-200); Creatine Kinase 53 U/L (26-192); Estimated Glomerular Filt Rate > 60; Glucose 100 mg/dL (70-99); HDL Direct 59 mg/dL (40-60); LDL Cholesterol Calculated 133 mg/dL (<130); Lipase 31 U/L (16-77); Osmolality Calculated 292 mOsm/kg (285-295); Potassium 3.5 mmol/L (3.5-5.1); Sodium 141 mmol/L (136-145); Total Protein 7.3 g/dL (6.4-8.2); Triglycerides 102 mg/dL (0-150)
[2023-09-05 16:30] LABS: Appearance Urine Clear (Clear); Bilirubin Urine Negative (Negative); Blood Urine 2+ (Negative); Color Urine Yellow (Yellow); Glucose Urine UA Negative (Negative); Ketones Urine Negative (Negative); Leukocyte Esterase Ur Negative (Negative); Nitrate Urine Negative (Negative); Protein Urine Negative (Negative); Specific Grav Ur 1.025 (1.010-1.020); Urobilinogen Urine 0.2 mg/dL (0.2-1.0)
[2023-09-05 16:37] LABS: Add Urine Microscopic? YES; Squamous Epithelial Cell Urine Few /hpf (Few); WBC Urine None seen /hpf (0-3)
[2023-09-05 16:38] LABS: Bacteria Urine 1+ /hpf
[2023-09-07 19:55] LABS: H pylori, Urea Breath NOT DETECTED (NOT DETECTED)
== END 2023-09-05 14:47 | disposition home or self-care (01) ==
PROVIDERS: PCP Internal Medicine; Visit Provider Internal Medicine
DX: I10 Essential (primary) hypertension (principal); R10.13 Epigastric pain; E78.2 Mixed hyperlipidemia
CPT/HCPCS: 36415; 80053; 80061; 81001; 82150; 82550; 83013; 83605; 83690; 85025; 87077; 87086; 87088

== ENCOUNTER 2023-09-18 10:18 | Outpatient (CLI) | payer OTHER, SELFPAY ==
--- NOTE | ~2023-09-18 | NM_ITS ---
EXAMINATION: NM hepatobiliary w pharm DATE: 09/18/2023 13:08 INDICATION: Right upper quadrant abdominal pain and nausea COMPARISON: None. TECHNIQUE: 5.7 mCi Tc-99m mebrofenin (Choletec) was administered intravenously. Scintigraphic images of the abdomen were obtained for one hour. 1.2 mcg sincalide (Kinevac) was administered by slow intr avenous infusion, and imaging was continued for 30 minutes. Gallbladder ejection fraction was calcula matt by the technologist. FINDINGS: There is normal clearance of radiotracer from the blood pool. There is homogeneous tracer uptake by t he liver. Activity progresses to the gallbladder and bowel. The gallbladder ejection fraction (GBEF) is 65% (normal 10-90%, but most patient with gallbladder dysfunction have GBEF < 35% which does over lap with the normal range). IMPRESSION: 1. Normal hepatobiliary scan Reviewed, dictated and finalized at location A.
== END 2023-09-18 10:19 | disposition home or self-care (01) ==
LOC: CHSIMG 10:20
PROVIDERS: PCP Internal Medicine; Visit Provider Internal Medicine
DX: R10.11 Right upper quadrant pain (principal)
CPT/HCPCS: 78227; A9537; J2805

== ENCOUNTER 2023-09-19 16:54 | Emergency (ER) | payer OTHER, SELFPAY ==
[2023-09-19 16:58] VITALS: BP 151/100; PULSE 96; RESP 22; TEMP 37.3; O2SAT 98
--- NOTE | 2023-09-19 16:58 | ED.ALLEREA ---
HPI - Allergic Reaction General Chief complaint: Allergic Reaction Stated complaint: ALLERGIC REACTION Time Seen by Provider: 09/19/23 16:57 Source: patient Mode of arrival: ambulatory Limitations: no limitations History of Present Illness HPI narrative: 32 year old female presents to the Emergency Department complaining of allergic reaction. Patient states she was working in her basement an hour ago and began having hives, swelling to lips and around eyes. Complains of itching. 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 complaint: allergic reaction Onset (ago): minute(s) Exposure: unknown Symptoms: itching and lip swelling Severity: moderate Treatment prior to arrival: benadryl Related Data Home Medications Medication Instructions Recorded Confirmed losartan 100 mg tablet 1 tablet PO DAILY 12/08/21 09/19/23 amlodipine 2.5 mg tablet 2.5 mg PO DAILY 06/20/23 09/19/23 lovastatin 40 mg tablet 40 mg PO QPM 09/19/23 09/19/23 medroxyprogesterone 150 mg/mL 150 mg IM [id number] 09/19/23 09/19/23 intramuscular syringe pantoprazole 40 mg tablet,delayed 40 mg PO BID 09/19/23 09/19/23 release Allergies Allergy/AdvReac Type Severity Reaction Status Date / Time magnesium sulfate Allergy Unknown SEIZURE Verified 09/19/23 17:05 Sulfa (Sulfonamide Allergy Unknown NAUSEA Verified 09/19/23 17:05 Antibiotics) adhesive tape Allergy Rash Verified 09/19/23 17:24 linezolid AdvReac Unknown VOMITING Verified 09/19/23 17:05 Review of Systems Review of Systems: All systems reviewed & are unremarkable except as noted in HPI and below Constitutional: Constitutional: Reports as per HPI, Denies chills and Denies fever(s) Eyes: Eyes: Reports as per HPI Comments: swelling to periorbital region ENT: Reports system reviewed and no additional complaints, except as documented Comments: swelling to lips Cardiovascular: Cardiovascular: Reports as per HPI and Denies chest pain Respiratory: Respiratory: Reports as per HPI, Reports no additional respiratory complaints, Denies cough, Denies dyspnea and Denies wheezing Gastrointestinal: Gastrointestinal: Reports as per HPI, Denies nausea and Denies vomiting Genitourinary: Genitourinary: Reports no additional female genitourinary complaints Musculoskeletal: Musculoskeletal: Reports no additional musculoskeletal complaints Integumentary/Breasts: Skin/Breast: Reports pruritus Comments: scattered hives Neurologic: Reports system reviewed and no additional complaints, except as documented PMFSH Past Medical History Medical History Acute unilateral obstructive uropathy Anemia Anxiety Bronchitis Chronic back pain Endometriosis GERD (gastroesophageal reflux disease) History of blood transfusion Irritable bowel Pneumonia Scoliosis Seasonal allergies Seizure UTI (urinary tract infection) Surgical History Surgical History History of laparoscopy History of spinal fusion Social History Social History Smoking status: Never smoker Gender identity (if verbalized by the patient): Female Exam Const: General: healthy appearing, no acute distress and alert Nutritional Appearance: well nourished Orientation/consciousness: patient oriented x3 Limitations: no limitations HENMT: Head: normal to inspection Ears: external ears normal Face/Nose/Sinus: Normal external nose present Face and sinus: normal facial exam Other: mild swelling to lips, tongue and throat clear, mild edema inferior periorbital region Eyes: Conjunctivae: conjunctivae normal Pupils: Equal, round and reactive pupils present EOM: EOMs intact bilaterally Direct Ophthalmoscopy: no photophobia Neck: Neck: normal visual inspection Chest: Chest palpation & inspection: normal inspection of the chest Resp: Effort & Inspection: normal
[2023-09-19] MEDS: methylPREDNISolone SOD SUCC 125 MG VIAL IV PUSH (17:08)
[2023-09-19] MEDS: diphenhydrAMINE HCl INJ 50 MG/ML VIAL IV PUSH (17:10)
[2023-09-19 17:11] VITALS: BP 151/100; PULSE 96; RESP 22; TEMP 37.3; O2SAT 98
[2023-09-19] MEDS: FAMOTIDINE 20 MG/2 ML VIAL IV PUSH (17:13)
[2023-09-19 17:16] VITALS: BP 141/106; O2SAT 100
[2023-09-19 17:31] VITALS: BP 122/92; PULSE 100; RESP 18; O2SAT 98
[2023-09-19 17:46] VITALS: BP 131/83
[2023-09-19 18:05] VITALS: BP 137/79; PULSE 95; RESP 18; O2SAT 98
== END 2023-09-19 18:15 | disposition home or self-care (01) ==
PROVIDERS: Emergency Provider Emergency Medicine; PCP Internal Medicine
DX: T78.40XA Allergy, unspecified, initial encounter (principal); L50.9 Urticaria, unspecified; K21.9 Gastro-esophageal reflux disease without esophagitis; F41.9 Anxiety disorder, unspecified
CPT/HCPCS: 96374; 96375; 99284; J1200; J2919

== ENCOUNTER 2023-09-20 10:05 | Outpatient (CLI) | payer OTHER, SELFPAY ==
[2023-09-20 10:27] LABS: Basophils Absolute Auto 0.01 K/mm3 (0.00-0.10); Basophils Percent Auto 0.1 % (0.0-1.0); Hematocrit 39.9 % (35.0-49.0); Hemoglobin 13.3 g/dL (12.0-15.0); Immature Granulocyte Absolute 0.06 K/mm3 (0.00-0.00); Immature Granulocyte Percent A 0.7 % (0.0-0.0); Lymphocytes Absolute Auto 0.55 K/mm3 (1.10-4.50); Lymphocytes Percent Auto 6.6 % (18.0-42.0); Mean Corpuscular HGB Conc 33.3 g/dL (32-36); Mean Corpuscular Hemoglobin 30.5 pg (27.0-31.0); Mean Corpuscular Volume 91.5 fL (78.0-102.0); Mean Platelet Volume 9.1 fl (9.2-11.8); Monocytes Absolute Auto 0.26 K/mm3 (0.10-0.90); Monocytes Percent Auto 3.1 % (2.0-11.0); Neutrophils Percent Auto 89.5 % (50.0-70.0); Platelet Count Result 290 K/mm3 (150-420); Red Blood Count 4.36 M/mm3 (4.20-5.40); Red Cell Distribution Width 12.5 % (11.6-14.4); White Blood Count 8.4 K/mm3 (4.8-10.8)
[2023-09-20 11:15] LABS: Alanine Aminotransferase 23 U/L (14-59); Albumin Level 4.4 g/dL (3.4-5.0); Alkaline Phosphatase 78 U/L (46-116); Anion Gap 17 mmol/L (4-12); Aspartate Amino Transferase 14 U/L (15-37); Bilirubin,Total 0.6 mg/dL (0.00-1.00); Blood Urea Nitrogen 18 mg/dL (7-18); CRP 2.9 mg/dL (0.0-0.9); Calcium 9.3 mg/dL (8.5-10.1); Carbon Dioxide 21 mmol/L (21-32); Chloride 102 mmol/L (98-108); Estimated Glomerular Filt Rate > 60; Glucose 123 mg/dL (70-99); Osmolality Calculated 292 mOsm/kg (285-295); Sodium 140 mmol/L (136-145); Total Protein 7.8 g/dL (6.4-8.2)
[2023-09-20 11:43] LABS: Erythrocyte Sedimentation Rate 30 mm/hr (0-15)
[2023-09-20 16:53] LABS: RSV RNA, RT-PCR Negative (Negative)
[2023-09-21 18:39] LABS: Immunoglobulin A 202 mg/dL (47-310); Immunoglobulin G 921 mg/dL (600-1640); Immunoglobulin M 101 mg/dL (50-300)
[2023-09-22 15:19] LABS: Complement Total CH50 >60 U/mL (31-60)
[2023-09-22 16:08] LABS: Complement C3 169 mg/dL (83-193)
[2023-09-29 11:07] LABS: Reference Lab Test Name TRYPTASE
== END 2023-09-20 10:06 | disposition home or self-care (01) ==
LOC: CHSLAB 10:07
PROVIDERS: PCP Internal Medicine; Visit Provider Internal Medicine
DX: T78.3XXD Angioneurotic edema, subsequent encounter (principal)
CPT/HCPCS: 36415; 80053; 82784; 83520; 85025; 85652; 86140; 86160; 86162; 87634

== ENCOUNTER 2023-09-21 10:19 | Outpatient (CLI) | payer OTHER, SELFPAY ==
--- NOTE | ~2023-09-21 | CT_ITS ---
Clinical Indication: Shortness of breath, cough CT Scan of the Chest with Contrast: Technique: Contiguous sections were acquired throughout the chest after intravenous administration of 100 cc of Omnipaque 350. Dose reduction technique was used on this scan by utilizing automated expos ure control and iterative reconstruction technique. The dose-length product (DLP) was 196.38 mGy-cm. Findings: There is no evidence of any significant mediastinal, hilar or axillary lymphadenopathy. There is no f illing defect in the pulmonary arterial tree to suggest pulmonary embolus. There is no evidence of ao rtic dissection or aneurysm. There is no evidence of pleural or pericardial effusion. The lungs are clear. No pulmonary nodules or infiltrates are noted. Images through the upper abdomen reveal no abnormalities. Extensive thoracolumbar spinal fixation lu dware is present. Impression: No evidence of pulmonary embolus, aortic dissection, or aortic aneurysm. Clear lungs. Reviewed, dictated and finalized at [facility]. Impression: No evidence of pulmonary embolus, aortic dissection, or aortic aneurysm. Clear lungs.
--- NOTE | ~2023-09-21 | XR_ITS ---
EXAMINATION: XR chest 2V 09/21/2023 10:40 INDICATION: Dyspnea and cough. PROCEDURE: 2 view chest COMPARISON: Comparison to multiple prior studies sequentially, with oldest reviewed study dated 06/26. FINDINGS: The lungs are clear. The cardiomediastinal silhouette is within normal limits. There are no pleural effusions. There is no pneumothorax suspected. There are Ramesh rods overlying the t horacic and upper lumbar spine. IMPRESSION: 1: NO ACUTE CARDIOPULMONARY DISEASE. Reviewed, dictated and finalized at location B.
[2023-09-21 10:33] LABS: Basophils Absolute Auto 0.01 K/mm3 (0.00-0.10); Basophils Percent Auto 0.1 % (0.0-1.0); Eosinophils Absolute Auto 0.03 K/mm3 (0.02-0.50); Eosinophils Percent Auto 0.3 % (1.0-6.0); Hematocrit 39.7 % (35.0-49.0); Immature Granulocyte Absolute 0.07 K/mm3 (0.00-0.00); Immature Granulocyte Percent A 0.6 % (0.0-0.0); Lymphocytes Absolute Auto 1.04 K/mm3 (1.10-4.50); Lymphocytes Percent Auto 8.9 % (18.0-42.0); Mean Corpuscular HGB Conc 32.7 g/dL (32-36); Mean Corpuscular Hemoglobin 30.6 pg (27.0-31.0); Mean Corpuscular Volume 93.4 fL (78.0-102.0); Monocytes Absolute Auto 0.63 K/mm3 (0.10-0.90); Monocytes Percent Auto 5.4 % (2.0-11.0); Neutrophils Absolute Auto 9.85 K/mm3 (1.70-7.20); Neutrophils Percent Auto 84.7 % (50.0-70.0); Platelet Count Result 302 K/mm3 (150-420); Red Blood Count 4.25 M/mm3 (4.20-5.40); Red Cell Distribution Width 12.8 % (11.6-14.4); White Blood Count 11.6 K/mm3 (4.8-10.8)
[2023-09-21 10:49] LABS: D Dimer 0.97 mg/L (0.19-0.50)
[2023-09-21 10:59] LABS: Creatine Kinase 57 U/L (26-192); NT Pro B Type Natriuretic Pept 142 pg/mL (0-125)
[2023-09-21 11:05] LABS: Troponin I < 4.0 ng/L (0.00-60.4)
== END 2023-09-21 10:20 | disposition home or self-care (01) ==
PROVIDERS: PCP Internal Medicine; Visit Provider Internal Medicine
DX: R06.02 Shortness of breath (principal); R05.9 Cough, unspecified; R07.9 Chest pain, unspecified; R79.1 Abnormal coagulation profile
CPT/HCPCS: 36415; 71046; 71275; 82550; 82553; 83880; 84484; 85025; 85380; Q9967

== ENCOUNTER 2023-11-16 00:11 | Day surgery (SDC) | payer OTHER, SELFPAY ==
[2023-11-03 09:52] VITALS: BMI 25.4
--- NOTE | 2023-11-15 13:43 | P.PNAN_ITS ---
Anes - Initial Pre Proc Eval Procedure: Operation Date: 11/16/23 10:30 Proposed Procedures p Esophagogastroduodenoscopy - Shaw Rausch DO Date/Time: 11/15/23 13:43 Surgeon: Shaw Rausch DO Pre Op Diagnosis: Epigastric pain Patient Data Age: 33 Gender: F Height: 1.52 m Weight: 59 kg Allergies Allergy/AdvReac Type Severity Reaction Status Date / Time magnesium sulfate Allergy Unknown SEIZURE Verified 11/16/23 08:45 adhesive tape Allergy Rash Verified 11/16/23 08:45 linezolid AdvReac Unknown VOMITING Verified 11/16/23 08:45 Sulfa (Sulfonamide AdvReac Unknown NAUSEA Verified 11/16/23 08:45 Antibiotics) Components of Dayquil Allergy Anaphylaxis Uncoded 11/16/23 08:45 Home Medications Medication Instructions Recorded Confirmed Type losartan 100 mg tablet 1 tablet PO DAILY 12/08/21 11/16/23 History amlodipine 2.5 mg tablet 2.5 mg PO DAILY 06/20/23 11/16/23 History diphenhydramine HCl 50 mg capsule 50 mg PO Q6H PRN allergic reaction 09/19/23 11/16/23 Rx #20 caps famotidine 20 mg tablet (Pepcid) 20 mg PO BID PRN allergic reaction 09/19/23 11/16/23 Rx #10 tabs lovastatin 40 mg tablet 40 mg PO QPM 09/19/23 11/16/23 History medroxyprogesterone 150 mg/mL 150 mg IM [id number] 09/19/23 11/16/23 History intramuscular syringe pantoprazole 40 mg tablet,delayed 40 mg PO BID 09/19/23 11/16/23 History release Patient hx anesthesia problems: none Family hx anesthesia problems: none Results Review: All pre-operative results and documents have been reviewed as part of the pre- operative evaluation. [facility] Past Medical History Medical History (Updated 11/15/23 @ 13:44 by Nish Gaspar DO) Acute unilateral obstructive uropathy Anemia Anxiety Bronchitis Chronic back pain Endometriosis GERD (gastroesophageal reflux disease) History of blood transfusion Hyperlipidemia Hypertension Irritable bowel Pneumonia Scoliosis Seasonal allergies Seizure UTI (urinary tract infection) Surgical History Surgical History History of laparoscopy History of spinal fusion Social History Social History Smoking status: Never smoker Substance use type: does not use Living arrangements: other Additional living arrangements comments: with sp Gender identity (if verbalized by the patient): Female Anes - Eval Final PreProcedure Day of Procedure 11/15/23 13:43 Patient weight: overweight Heart: regular rate and rhythm Lungs: clear to auscultation Airway: Mallampati scale class II Neurological: alert and oriented Last oral intake: >/= 8 hours ASA classification: III Emergent: no Anesthetic plan: proceed Anesthesia type and monitoring: general GIVS and standard monitoring Results Review: All pre-operative results and documents have been reviewed as part of the pre- operative evaluation. Informed Consent: The patient's anesthetic plan and its attendant risks and benefits were discussed with the patient/family/POA. Questions were solicited and answers provided to the satisfaction of the patient/family/POA.
[2023-11-16 08:35] VITALS: BP 136/95; PULSE 88; RESP 18; TEMP 36.1; O2SAT 98; BMI 27.0
[2023-11-16] MEDS: LACTATED RINGERS 1,000 ML 150 ML IV CONT (08:54)
--- NOTE | 2023-11-16 09:27 | PM.IMHP ---
H&P: HPI History of Present Illness Date/Time: 11/16/23 09:27 Chief Complaint: GERD, epigastric pain Narrative: this is a 33-year-old woman who presents for EGD. She has been experiencing some upper abdominal pain and worsening acid reflux. She has tried pantoprazole 40 mg b.i.d. and also takes famotidine but still has some symptoms. She also has a lot of allergies and potential food allergies which may be contributing to her symptoms. She denies any hematochezia or hematemesis. She denies any melena. Review of Systems Review of Systems: All systems reviewed & are unremarkable except as noted in HPI and below Constitutional: Constitutional: Denies chills, Denies fever(s), Denies headache(s) and Denies weight loss Eyes: Eyes: Denies change in vision ENT: Denies dizziness, Denies headache(s), Denies neck mass and Denies throat swelling Cardiovascular: Cardiovascular: Denies chest pain, Denies lightheadedness and Denies dyspnea Respiratory: Respiratory: Denies cough, Denies dyspnea and Denies wheezing Gastrointestinal: Gastrointestinal: Reports as per HPI, Denies change in bowel habits, Denies nausea and Denies vomiting Genitourinary: Genitourinary: Denies hematuria and Denies dysuria Musculoskeletal: Musculoskeletal: Reports as per HPI Integumentary/Breasts: Skin/Breast: Reports as per HPI Neurologic: Denies dizziness and Denies headache(s) Allergic/Immunologic: Allergic/Immunologic: Denies throat swelling and Denies wheezing PMF Past Medical History Medical History (Updated 11/16/23 @ 09:29 by Shaw Rausch DO) Acute unilateral obstructive uropathy Anemia Anxiety Bronchitis Chronic back pain Endometriosis GERD (gastroesophageal reflux disease) History of blood transfusion Hyperlipidemia Hypertension Irritable bowel Pneumonia Scoliosis Seasonal allergies Seizure UTI (urinary tract infection) Surgical History Surgical History History of laparoscopy History of spinal fusion Social History Social History Smoking status: Never smoker Substance use type: does not use Living arrangements: other Additional living arrangements comments: with sp Gender identity (if verbalized by the patient): Female Meds Home Medications and Allergies Home Medications Medication Instructions Recorded Confirmed Type losartan 100 mg tablet 1 tablet PO DAILY 12/08/21 11/16/23 History amlodipine 2.5 mg tablet 2.5 mg PO DAILY 06/20/23 11/16/23 History diphenhydramine HCl 50 mg capsule 50 mg PO Q6H PRN allergic reaction 09/19/23 11/16/23 Rx #20 caps famotidine 20 mg tablet (Pepcid) 20 mg PO BID PRN allergic reaction 09/19/23 11/16/23 Rx #10 tabs lovastatin 40 mg tablet 40 mg PO QPM 09/19/23 11/16/23 History medroxyprogesterone 150 mg/mL 150 mg IM [id number] 09/19/23 11/16/23 History intramuscular syringe pantoprazole 40 mg tablet,delayed 40 mg PO BID 09/19/23 11/16/23 History release Allergies Allergy/AdvReac Type Severity Reaction Status Date / Time magnesium sulfate Allergy Unknown SEIZURE Verified 11/16/23 08:45 adhesive tape Allergy Rash Verified 11/16/23 08:45 linezolid AdvReac Unknown VOMITING Verified 11/16/23 08:45 Sulfa (Sulfonamide AdvReac Unknown NAUSEA Verified 11/16/23 08:45 Antibiotics) Components of Dayquil Allergy Anaphylaxis Uncoded 11/16/23 08:45 Vital Signs Vital Signs - 24 hr 11/16/23 08:35 Temperature 36.1 C L Pulse Rate 88 Respiratory Rate 18 Blood Pressure 136/95 H Pulse Oximetry 98 Oxygen Delivery Room Air Exam Const: General: no acute distress and alert Orientation/consciousness: patient oriented x3 HENMT: Head: normocephalic and atraumatic Ears: hearing grossly normal bilaterally Face/Nose/Sinus: Normal nares present Mouth: Yes Normal oral and palatal mucosa present Eyes: Periorbital: periorbital findings normal
[2023-11-16] MEDS: BENZOCAINE (*SP) 60 ML SPRAY CAN (HURRICAINE) 1 SPRAY MUCOUS MEM (09:37)
[2023-11-16 09:52] VITALS: BP 87/52; PULSE 92; RESP 19; O2SAT 98
[2023-11-16 10:02] VITALS: BP 99/39; PULSE 92; RESP 20; O2SAT 100
[2023-11-16 10:12] VITALS: BP 112/75; PULSE 78; RESP 20; O2SAT 100
== END 2023-11-16 10:22 | disposition home or self-care (01) ==
PROVIDERS: PCP Internal Medicine; Visit Provider Surgery
PROC: 0DJ08ZZ Inspection of Upper Intestinal Tract, Via Natural or Artificial Opening Endoscopic (ICD-10-PCS; CPT 43235; principal; 2023-11-16 10:30)
DX: K21.9 Gastro-esophageal reflux disease without esophagitis (principal); I10 Essential (primary) hypertension; E78.5 Hyperlipidemia, unspecified
CPT/HCPCS: 43239; 87081; 88305; J2704; J7120

== ENCOUNTER 2023-12-23 19:37 | Emergency (ER) | payer OTHER, SELFPAY ==
--- NOTE | 2023-12-23 19:45 | ED.ALLEREA ---
HPI - Allergic Reaction General Chief complaint: Allergic Reaction Stated complaint: Allergic Reaction Source: patient and family Mode of arrival: ambulatory History of Present Illness HPI narrative: 33 years old white female, history of allergy to unknown allergens, currently on Singulair, Pepcid, Zyrtec scheduled to be seen by case operator soon. Today was painting at home start having swollen hands and tingling of the tongue she denies trouble breathing or swallowing. it occurs within 1 hour prior to arrival. Patient did not use her home EpiPen and did not take any medicine prior to arrival of. . No skin rash. Related Data Home Medications Medication Instructions Recorded Confirmed losartan 100 mg tablet 1 tablet PO DAILY 12/08/21 12/23/23 amlodipine 2.5 mg tablet 2.5 mg PO DAILY 06/20/23 12/23/23 lovastatin 40 mg tablet 40 mg PO QPM 09/19/23 12/23/23 medroxyprogesterone 150 mg/mL 150 mg IM [id number] 09/19/23 12/23/23 intramuscular syringe pantoprazole 40 mg tablet,delayed 40 mg PO BID 09/19/23 12/23/23 release Allergies Allergy/AdvReac Type Severity Reaction Status Date / Time magnesium sulfate Allergy Unknown SEIZURE Verified 12/23/23 19:42 adhesive tape Allergy Rash Verified 12/23/23 19:42 linezolid AdvReac Unknown VOMITING Verified 12/23/23 19:42 Sulfa (Sulfonamide AdvReac Unknown NAUSEA Verified 12/23/23 19:42 Antibiotics) Components of Dayquil Allergy Anaphylaxis Uncoded 11/16/23 08:45 Review of Systems Review of Systems: All systems reviewed & are unremarkable except as noted in HPI and below PMFSH Past Medical History Medical History Acute unilateral obstructive uropathy Anemia Anxiety Bronchitis Chronic back pain Endometriosis GERD (gastroesophageal reflux disease) History of blood transfusion Hyperlipidemia Hypertension Irritable bowel Pneumonia Scoliosis Seasonal allergies Seizure UTI (urinary tract infection) Surgical History Surgical History History of laparoscopy History of spinal fusion Social History Social History Smoking status: Never smoker Substance use type: does not use Living arrangements: other Additional living arrangements comments: with sp Gender identity (if verbalized by the patient): Female Exam Narrative: General appearance: Well-developed, well-nourished Skin: Normal color Head: Normocephalic, nontraumatic Eyes: Clear conjunctiva ENT: Oropharynx normal, ears normal, nose normal Neck: Supple, nontender Chest and respiratory: Airway patent, no respiratory distress, no accessory muscle use Heart: Regular rate/rhythm Abdomen: Soft, nontender, no organomegaly, quiet bowel sounds Vascular: Normal peripheral pulses, normal capillary refill. Musculoskeletal: Normal range of motion, nontender back Neurologic: Alert and oriented ?3, DEWER is normal as tested, no gross motor deficit MDM - Allergic Reaction MDM Narrative Medical decision making narrative: Allergic reaction to unknown allergens is my concern. In the ED patient received epinephrine IM, Benadryl and prednisone p.o.. With remarkable improvement of her symptoms. Patient to be discharged on prednisone, continue home medication and take Benadryl 50 mg every 6 hours as needed Differential Diagnosis Differential diagnosis: Likely other ( allergic reaction to unknown allergen) Critical Care Time Critical Care Time Critical Care Time: No Discharge Plan Discharge Clinical Impression: Allergic reaction Patient Disposition: Home, Self-Care C
[2023-12-23] MEDS: EPINEPHrine HCL INJ 1 MG/ML AMPUL 0.3 MG IM (19:50)
[2023-12-23] MEDS: predniSONE 20 MG TABLET 60 MG PO (19:50)
[2023-12-23] MEDS: diphenhydrAMINE HCl CAP 25 MG CAPSULE 50 MG PO (19:50)
[2023-12-23 19:59] VITALS: BP 145/70; PULSE 107; RESP 18; TEMP 36.2; O2SAT 100
[2023-12-23 20:00] VITALS: O2SAT 100
[2023-12-23 20:20] VITALS: BP 129/77; PULSE 91; RESP 18; TEMP 36.8; O2SAT 100
== END 2023-12-23 20:20 | disposition home or self-care (01) ==
PROVIDERS: Emergency Provider Emergency Medicine; PCP Internal Medicine
DX: T78.40XA Allergy, unspecified, initial encounter (principal); I10 Essential (primary) hypertension; Z79.899 Other long term (current) drug therapy
CPT/HCPCS: 96372; 99283; A9270; J0171; J7512

== ENCOUNTER 2024-05-14 16:42 | Emergency (ER) | payer OTHER, SELFPAY ==
[2024-05-14 16:59] VITALS: BP 145/85; PULSE 100; RESP 16; TEMP 37; O2SAT 99
--- NOTE | 2024-05-14 17:25 | ED_ITS ---
HPI - Chest Pain General Chief Complaint: Chest Pain Stated Complaint: CHEST PAIN/JAW PAIN/HEAD PAIN/SHOULDER PAIN Time Seen by Provider: 05/14/24 17:10 Source: patient, RN notes reviewed and old records reviewed Mode of arrival: ambulatory Limitations: no limitations History of Present Illness HPI narrative: 33-year-old female presents with with complaints of chest pain radiating to her back intermittently all day today states pain is sharp and at times has jaw pain . 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 Patient reports that she has had some cardiac issues before. MD complaint: chest pain and other (radiation of pain to her back and jaw) Pertinent past history: other (hypertension, GERD, allergies) Onset (ago): day(s) (today) Onset: other (intermittently during today) Pain location: other (mid sternal) Severity: moderate Quality: sharp and other (soreness) Exacerbating factors: nothing Treatment prior to arrival: none Related Data Home Medications ?Medication ?Instructions ?Recorded ?Confirmed ?Last Taken ?Type losartan 100 mg tablet 1 tablet PO DAILY 12/08/21 12/23/23 09/18/23 22:00 History amlodipine 2.5 mg tablet 2.5 mg PO DAILY 06/20/23 12/23/23 09/18/23 22:00 History lovastatin 40 mg tablet 40 mg PO QPM 09/19/23 12/23/23 09/18/23 22:00 History medroxyprogesterone 150 mg/mL 150 mg IM [id number] 09/19/23 12/23/23 09/18/23 22:00 History intramuscular syringe pantoprazole 40 mg tablet,delayed 40 mg PO BID 09/19/23 12/23/23 09/18/23 22:00 History release montelukast 10 mg tablet mg 05/14/24 Unknown History Allergies Allergy/AdvReac Type Severity Reaction Status Date / Time magnesium sulfate Allergy Unknown SEIZURE Verified 05/14/24 17:55 adhesive tape Allergy Rash Verified 05/14/24 17:55 linezolid AdvReac Unknown VOMITING Verified 05/14/24 17:55 Sulfa (Sulfonamide AdvReac Unknown NAUSEA Verified 05/14/24 17:55 Antibiotics) Components of Dayquil Allergy Anaphylaxis Uncoded 05/14/24 17:55 Review of Systems Review of Systems: CONSTITUTIONAL: Denies fever, chills, or sweats. EYES: Denies visual changes, redness, or discharge. ENT: Denies rhinorrhea, congestion, sore throat, or otalgia. CARDIOVASCULAR: reports intermittent chest pain with some radiation to back ad some to jaw, denies any palpitations, or edema. RESPIRATORY: Denies cough or dyspnea. GASTROINTESTINAL: Denies abdominal pain, nausea, vomiting, or diarrhea. GENITOURINARY: Denies dysuria or hematuria. SKIN: Denies rash or itching. MUSCULOSKELETAL: reports some intermittent upper back pain,no joint pain, or myalgia. NEUROLOGIC: Denies headache, numbness, or weakness. PSYCHIATRIC: history of anxiety or depression. All systems reviewed & are unremarkable except as noted in HPI and below PMFSH Past Medical History Medical History (Updated 05/15/24 @ 21:30 by Padma Cassidy NP) Hyperlipidemia Hypertension Acute unilateral obstructive uropathy History of blood transfusion Anemia Anxiety Chronic back pain Scoliosis UTI (urinary tract infection) Endometriosis GERD (gastroesophageal reflux disease) Irritable bowel Pneumonia Bronchitis Seizure Seasonal allergies Surgical History Surgical History (Updated 05/15/24 @ 21:21 by Padma Cassidy NP) History of tonsillectomy History of spinal fusion History of laparoscopy Social History Social History Smoking status: Never smoker Substance use type: does not use Living arrangements: other Additional living arrangements comments: with sp Gender identity (if verbalized by the patient): Female Comments At time of signature, agree with nursing past medical, surgical, social and family history. There is no relevant family history pertinent to the presenting complaint Exam Narrative: GENERAL: Well-appearing, well-nourished, and in no acute distress. HEAD: Normocephalic, atraumatic. EYES: PERRLA and EOMI. ENT: Nares clear, no rhinorrhea or epistaxis. Mucous membranes moist.TM's normal throat pink tonsils absent NECK: Supple. no lymphadenopathy CHEST: Clear to auscultation. No respiratory distress.no cough or any dyspnea. SAO2 99% on room air HEART: Regular rate and rhythm. No murmur heard. Normal peripheral pulses.color pink reports intermittent episodes of midsternal chest pain today which is sharp at times and has soreness with some radiation to back and reports to jaw also, no dizziness or any nausea, or diaphoresis ABDOMEN: Soft, nontender, nondistended, normal active bowel sounds. EXTREMITIES: Normal range of motion. No edema. SKIN: Warm, dry, no rash. NEURO: No focal deficits. Alert and oriented x3. Course Course Emergency Course: Patient is aware of diagnosis, understands and agrees to treatment plan.? Anticipatory guidance given.? Patient agrees to follow-up as directed and is aware of reasons to seek care at the emergency department. Portions of this record may have been created with voice recognition software Level of Care: Express Care Visit Vital Signs Vital signs: Vital Signs Temperature 37.0 C 05/14/24 16:59 Pulse Rate 100 05/14/24 16:59 Respiratory Rate 16 05/14/24 16:59 Blood Pressure 145/85 H 05/14/24 16:59 Pulse Oximetry 99 05/14/24 16:59 Temperature 37.0 C 05/14/24 16:59 Pulse Rate 100 05/14/24 16:59 Respiratory Rate 16 05/14/24 16:59 Blood Pressure 145/85 H 05/14/24 16:59 Pulse Oximetry 99 05/14/24 16:59 Reviewed Transfer Transfered to: [facility] Transportation: Other (private car with spouse) Transfer rationale: complaints of chest pain with radiation to back intermittent throughout day, needs further evaluation than can be provided in express care. Accepting physician: Momo Transfer comments: Per private car with spouse MDM - Chest Pain MDM Narrative Medical decision making narrative: 0 Call placed to ED and condition update given to Olena HOSPITALIST NOCTURNIST PHYSICIAN with PMH and vs reviewed, Dr Barr accepting physician. Differential Diagnosis Differential diagnosis: Likely atypical chest pain, chest pain, biliary colic and other (GERD.) Medical Records Data Attestation: I reviewed the patient's medical records. ECG Data EKG #1: Attestation: I personally reviewed and interpreted this ECG as follows: ECG completion date: 05/14/24 ECG completion time: 17:04 Prior ECG tracings: not available for review Ischemic changes: other (nonspecific st -t wave) Interpretation: sinus rhythm rate 98bpm, AL 146 ms, QRS 97ms QT 321 ms EKG Interpretation: normal rate, sinus rhythm and other (st and t wave abnormality ii,AVF) Critical Care Time Critical Care Time Critical Care Time: No Discharge Plan Discharge Clinical Impression: Atypical chest pain Patient Disposition: Acute Care Hospital Condition: Stable Patient Language: Yi Prescriptions: No Action losartan 100 mg tablet 1 tablet PO DAILY amlodipine 2.5 mg tablet 2.5 mg PO DAILY lovastatin 40 mg tablet 40 mg PO QPM pantoprazole 40 mg tablet,delayed release (DR/EC) 40 mg PO BID medroxyprogesterone 150 mg/mL syringe 150 mg IM [id number] diphenhydramine HCl 50 mg capsule 50 mg PO Q6H PRN (Reason: allergic reaction) Qty: 20 0RF montelukast 10 mg tablet Follow-up/Referrals: Chitra Nicole MD [Primary Care Provider] - Time of Disposition: 17:35 Quality Zhou Coma Scale Eyes: Open Verbal: Oriented and Alert Motor: Follows Commands [place] Coma Total Score: 15
== END 2024-05-14 17:35 | disposition short-term general hospital (02) ==
PROVIDERS: Emergency Provider Registered Nurse; PCP Internal Medicine
DX: R07.89 Other chest pain (principal); I10 Essential (primary) hypertension; E78.5 Hyperlipidemia, unspecified; K21.9 Gastro-esophageal reflux disease without esophagitis; N80.9 Endometriosis, unspecified; M41.9 Scoliosis, unspecified
CPT/HCPCS: 99213; G0463

== ENCOUNTER 2024-05-14 17:50 | Emergency (ER) | payer OTHER, SELFPAY ==
--- NOTE | ~2024-05-14 | XR_ITS ---
EXAMINATION: XR chest 2V DATE: 05/14/2024 18:11 INDICATION: Chest pain. TECHNIQUE: Frontal and lateral views of the chest were obtained. COMPARISON: Chest 2 views 09/21/2023 FINDINGS: There is no pneumonia, pleural effusion, or pneumothorax. The heart size is normal. There a re changes of posterior fusion procedure in thoracolumbar spine. IMPRESSION: 1. No acute cardiopulmonary disease. Reviewed, dictated and finalized at location A. ER UP
--- NOTE | 2024-05-14 17:56 | ECG_ITS ---
Test Date: 2024-05-14 18:00:27 Measurements Intervals [place] Rate: 100 P: 33 AL: 137 QRS: 14 QRSD: 98 T: -10 QT: 330 QTc: 426 Interpretive Statements SINUS TACHYCARDIA NONSPECIFIC ST & T-WAVE ABNORMALITY No previous ECG available for comparison Electronically Signed On 05-15-2024 14:18:54 ROOF PROMENADE TILE SETTER by Ally Ardon M.D.
[2024-05-14 18:19] VITALS: BP 144/94; PULSE 104; RESP 18; TEMP 36.6; O2SAT 100
[2024-05-14 18:21] LABS: Basophils Percent Auto 0.3 % (0.2-1.2); Eosinophils Absolute Auto 0.1 K/mm3 (0-0.3); Eosinophils Percent Auto 1.2 % (0-4.4); Hematocrit 40.6 % (37.0-47.0); Hemoglobin 13.1 g/dL (12.0-15.0); Immature Granulocyte Absolute 0.02 K/mm3 (0.00-0.031); Immature Granulocyte Percent A 0.3 % (0-0.5); Lymphocytes Absolute Auto 2.09 K/mm3 (0.9-3.2); Lymphocytes Percent Auto 30.7 % (18.3-44.2); Mean Corpuscular HGB Conc 32.3 g/dl (32-36); Mean Corpuscular Hemoglobin 29.8 pg (26-34); Mean Corpuscular Volume 92.3 fl (80-100); Mean Platelet Volume 9.1 fl (7.4-10.4); Monocytes Absolute Auto 0.4 K/mm3 (0.1-0.6); Monocytes Percent Auto 6.3 % (2.6-8.5); Neutrophils Absolute Auto 4.2 K/mm3 (1.3-6.7); Neutrophils Percent Auto 61.2 % (45.5-73.1); Platelet Count Result 271 k/mm3 (150-375); Red Cell Distribution Width 12.4 % (11.5-14.5); White Blood Count 6.8 K/mm3 (4.5-10.0)
[2024-05-14 18:30] LABS: Prothrombin Time 13.7 Seconds (11.1-14.7)
[2024-05-14 18:31] LABS: Partial Thromboplastin Time 26.2 Seconds (22.3-36.8)
[2024-05-14 18:40] LABS: Troponin I < 0.012 ng/mL (0.000-0.034)
[2024-05-14 18:57] LABS: Alanine Aminotransferase 17 U/L (6-35); Albumin Level 4.5 g/dL (3.5-5.1); Alkaline Phosphatase 81 U/L (38-126); Anion Gap 7 mmol/L (4-12); Aspartate Amino Transferase 26 U/L (14-36); Bilirubin,Total 0.4 mg/dL (0.2-1.3); Blood Urea Nitrogen 17 mg/dL (7-17); Carbon Dioxide 22 mmol/L (22-30); Chloride 110 mmol/L (98-107); Estimated Glomerular Filt Rate > 60; Glucose 100 mg/dL (65-110); Potassium 3.6 mmol/L (3.4-5.0); Sodium 139 mmol/L (137-145)
[2024-05-14 19:08] LABS: Lipase 112 U/L (23-300)
[2024-05-14 20:09] VITALS: BP 146/98; PULSE 90; RESP 15; TEMP 36.2; O2SAT 100
--- NOTE | 2024-05-14 21:06 | ED_ITS ---
HPI - Chest Pain General Chief Complaint: Chest Pain Stated Complaint: chest pain radiates to back Time Seen by Provider: 05/14/24 20:55 Source: patient Mode of arrival: ambulatory Limitations: no limitations History of Present Illness HPI narrative: This is a 33-year-old female who presents to the ED for chief complaint of chest pain beginning earlier today. Reports that she does have some mid back pain but this is chronic and feels like it may be a separate issue. States that she just has some ?irritation? to the upper central chest. There is no radiation of the pain. Denies associated nausea, vomiting, syncope. Denies exertional component of chest pain. No pain with inspiration. States that she was feeling sick yesterday and had an episode of a ?seizure. ? States that she does not have a seizure disorder but has vagal nerve stimulation.? States that following the seizure episode she was told by her mother that she was crying. Also relays that she has a mast cell disease and that no doctor that she has seen can figure out what causes this. Denies fevers, chills, abdominal pain, diarrhea, shortness of breath. Related Data Home Medications ?Medication ?Instructions ?Recorded ?Confirmed ?Last Taken ?Type losartan 100 mg tablet 1 tablet PO DAILY 12/08/21 12/23/23 09/18/23 22:00 History amlodipine 2.5 mg tablet 2.5 mg PO DAILY 06/20/23 12/23/23 09/18/23 22:00 History lovastatin 40 mg tablet 40 mg PO QPM 09/19/23 12/23/23 09/18/23 22:00 History medroxyprogesterone 150 mg/mL 150 mg IM [id number] 09/19/23 12/23/23 09/18/23 22:00 History intramuscular syringe pantoprazole 40 mg tablet,delayed 40 mg PO BID 09/19/23 12/23/23 09/18/23 22:00 History release montelukast 10 mg tablet mg 05/14/24 Unknown History Allergies Allergy/AdvReac Type Severity Reaction Status Date / Time magnesium sulfate Allergy Unknown SEIZURE Verified 05/14/24 17:55 adhesive tape Allergy Rash Verified 05/14/24 17:55 linezolid AdvReac Unknown VOMITING Verified 05/14/24 17:55 Sulfa (Sulfonamide AdvReac Unknown NAUSEA Verified 05/14/24 17:55 Antibiotics) Components of Dayquil Allergy Anaphylaxis Uncoded 05/14/24 17:55 Review of Systems 2 Review of Systems: All systems as dictated in [facility] Past Medical History Medical History Acute unilateral obstructive uropathy Anemia Anxiety Bronchitis Chronic back pain Endometriosis GERD (gastroesophageal reflux disease) History of blood transfusion Hyperlipidemia Hypertension Irritable bowel Pneumonia Scoliosis Seasonal allergies Seizure UTI (urinary tract infection) Surgical History Surgical History History of laparoscopy History of spinal fusion Social History Social History Smoking status: Never smoker Substance use type: does not use Living arrangements: other Additional living arrangements comments: with sp Gender identity (if verbalized by the patient): Female Exam 2 Narrative: GENERAL: Well-appearing, well-nourished, and in no acute distress. HEAD: Normocephalic, atraumatic. EYES: PERRLA and EOMI. ENT: Nares clear, no rhinorrhea or epistaxis. Mucous membranes moist. Oropharynx without tonsillar hypertrophy exudate or other lesions. NECK: Supple. No adenopathy or masses. CHEST: No respiratory distress. Clear to auscultation. No wheezes rales or rhonchi HEART: Regular rate and rhythm. No murmur heard. Normal peripheral pulses. ABDOMEN: Soft, nontender, nondistended, normal active bowel sounds. MSK: Normal range of motion. No edema. SKIN: Warm, dry, no rash. NEURO: Alert and oriented x4. No focal deficits. PSYCH: Normal mood and affect. Course Vital Signs Vital signs: Vital Signs Temperature 97.8 F 05/14/24 18:19 Pulse Rate 104 H 05/14/24 18:19 Respiratory Rate 18 05/14/24 18:19 Blood Pressure 144/94 H 05/14/24 18:19 Pulse Oximetry 100 05/14/24 18:19 Temperature 97.1 F L 05/14/24 20:09 Pulse Rate 88 05/14/24 22:32 Respiratory Rate 15 05/14/24 22:32 Blood Pressure 116/75 05/14/24 22:32 Pulse Oximetry 97 05/14/24 22:32 Oxygen Delivery Room Air 05/14/24 22:01 MDM - Chest Pain MDM Narrative Medical decision making narrative: This is a 33-year-old female who presents to the ED for chief complaint of chest pain. Vitals are normal. Exam is benign overall. EKG with normal sinus rhythm. Lab work shows normal white count on CBC. CMP unremarkable. Troponin is negative. D-dimer only very slightly elevated 0.50. She is cleared for PE from years criteria. No need for advanced imaging at this point. Chest x-ray is normal. Patient will be discharged in stable condition. Supportive measures discussed and return precautions given. Patient is understanding and agreeable with plan for discharge with PCP follow-up. [employer] Algorithm for Pulmonary Embolism (PE) from [employer] on 05/14/2024 All calculations should be rechecked by clinician prior to use RESULT SUMMARY: PE excluded YEARS algorithm rules out PE (0.43% with symptomatic VTE during 3-month follow- up) INPUTS: patient ?> 0 = No Clinical signs of DVT ?> 0 = No Hemoptysis ?> 0 = No PE most likely diagnosis ?> 0 = No D-dimer >=,000 ng/mL FEU ?> 0 = No Lab Data 05/14/24 18:04 05/14/24 18:04 Labs: Lab Results 05/14/24 05/14/24 Range/Units 18:04 22:02 WBC 6.8 (4.5-10.0) K/mm3 RBC 4.40 (4.2-5.4) M/mm3 Hgb 13.1 (12.0-15.0) g/dL Hct 40.6 (37.0-47.0) % MCV 92.3 (80-100) fl MCH 29.8 (26-34) pg MCHC 32.3 (32-36) g/dl RDW 12.4 (11.5-14.5) % Plt Count 271 (150-375) k/mm3 MPV 9.1 (7.4-10.4) fl Immature Gran % (Auto) 0.3 (0-0.5) % Neut % (Auto) 61.2 (45.5-73.1) % Lymph % (Auto) 30.7 (18.3-44.2) % [place] % (Auto) 6.3 (2.6-8.5) % Eos % (Auto) 1.2 (0-4.4) % Baso % (Auto) 0.3 (0.2-1.2) % Lymph # (Auto) 2.09 (0.9-3.2) K/mm3 [place] # (Auto) 0.4 (0.1-0.6) K/mm3 Eos # (Auto) 0.1 (0-0.3) K/mm3 Baso # (Auto) 0.0 (0.0-0.1) K/mm3 Abs Immat Gran (auto) 0.02 (0.00-0.031) K/mm3 Absolute Neuts (auto) 4.2 (1.3-6.7) K/mm3 Absolute Nucleated RBC 0.000 (0.0-0.012) K/mm3 Nucleated RBC % 0.0 (0.0-0.2) % PT 13.7 (11.1-14.7) Seconds INR 1.0 APTT 26.2 (22.3-36.8) Seconds D-Dimer 0.50 H (<0.48) ug/mL Sodium 139 (137-145) mmol/L Potassium 3.6 (3.4-5.0) mmol/L Chloride 110 H (98-107) mmol/L Carbon Dioxide 22 (22-30) mmol/L Anion Gap 7 (4-12) mmol/L BUN 17 (7-17) mg/dL Creatinine 0.70 (0.7-1.0) mg/dL Estim Creat Clear Calc Not Reportable Estimated GFR > 60 (59 - ) Glucose 100 (65-110) mg/dL Calcium 9.0 (8.4-10.2) mg/dL Total Bilirubin 0.4 (0.2-1.3) mg/dL AST 26 (14-36) U/L ALT 17 (6-35) U/L Alkaline Phosphatase 81 (38-126) U/L Troponin I < 0.012 < 0.012 (0.000-0.034) ng/mL Total Protein 7.0 (6.3-8.2) g/dL Albumin 4.5 (3.5-5.1) g/dL Lipase 112 (23-300) U/L ECG Data EKG #1: ECG completion date: 05/14/24 ECG completion time: 18:00 Prior ECG tracings: not available for review Interpretation: Sinus rhythm Rate 100 QRS normal QTC normal No acute ischemic findings Discharge Plan Discharge Clinical Impression: Atypical chest pain Patient Disposition: Home, Self-Care Condition: Stable Instructions: Antibiotic Form, Chest Wall Pain (ED) Additional Instructions: Your seen in the ER for chest pain today. Your exam and workup are reassuring. Please follow-up with PCP on this issue. Take Tylenol and ibuprofen regularly for pain control. If you have any new or worsening symptoms please return to the ER for further evaluation. Patient Language: Citizen [place] Prescriptions: No Action losartan 100 mg tablet 1 tablet PO DAILY amlodipine 2.5 mg tablet 2.5 mg PO DAILY lovastatin 40 mg tablet 40 mg PO QPM pantoprazole 40 mg tablet,delayed release (DR/EC) 40 mg PO BID medroxyprogesterone 150 mg/mL syringe 150 mg IM [id number] diphenhydramine HCl 50 mg capsule 50 mg PO Q6H PRN (Reason: allergic reaction) Qty: 20 0RF montelukast 10 mg tablet Follow-up/Referrals: Chitra Nicole MD [Primary Care Provider] - Time of Disposition: 22:06 Quality HEART score for chest pain patients History: slightly suspicious ECG: normal Age: < or = to 45 years Risk factors: no risk factors known Troponin: < or = to 1x normal limit Heart score: 0
[2024-05-14 21:44] VITALS: BP 124/98; PULSE 91; RESP 15; O2SAT 98
[2024-05-14 22:01] VITALS: PULSE 86; O2SAT 100
[2024-05-14 22:28] LABS: Troponin I < 0.012 ng/mL (0.000-0.034)
[2024-05-14 22:32] VITALS: BP 116/75; PULSE 88; RESP 15; O2SAT 97
== END 2024-05-14 22:34 | disposition home or self-care (01) ==
PROVIDERS: Emergency Medicine; Emergency Provider Physician Assistant; PCP Internal Medicine
DX: R07.89 Other chest pain (principal); I10 Essential (primary) hypertension; D47.02 Systemic mastocytosis; E78.5 Hyperlipidemia, unspecified; N80.9 Endometriosis, unspecified; K21.9 Gastro-esophageal reflux disease without esophagitis; K58.9 Irritable bowel syndrome, unspecified; M41.9 Scoliosis, unspecified; Z98.1 Arthrodesis status; Z87.440 Personal history of urinary (tract) infections; Z87.01 Personal history of pneumonia (recurrent); Z79.899 Other long term (current) drug therapy; R00.0 Tachycardia, unspecified; R94.31 Abnormal electrocardiogram [ECG] [EKG]
CPT/HCPCS: 36415; 71046; 80053; 83690; 84484; 85025; 85380; 85610; 85730; 93005; 99284

== ENCOUNTER 2024-07-30 10:17 | Outpatient (CLI) | payer OTHER, SELFPAY ==
[2024-07-30 10:44] LABS: Hematocrit 41.4 % (35.0-49.0); Mean Corpuscular HGB Conc 31.4 g/dL (32-36); Mean Corpuscular Hemoglobin 29.1 pg (27.0-31.0); Mean Corpuscular Volume 92.8 fL (78.0-102.0); Mean Platelet Volume 8.8 fl (9.2-11.8); Platelet Count Result 222 K/mm3 (150-420); Red Blood Count 4.46 M/mm3 (4.20-5.40); Red Cell Distribution Width 12.4 % (11.6-14.4); White Blood Count 3.8 K/mm3 (4.8-10.8)
[2024-07-30 11:00] LABS: Alanine Aminotransferase 32 U/L (14-59); Albumin Level 4.2 g/dL (3.4-5.0); Alkaline Phosphatase 93 U/L (46-116); Anion Gap 13 mmol/L (4-12); Aspartate Amino Transferase 23 U/L (15-37); Bilirubin,Total 0.6 mg/dL (0.00-1.00); Blood Urea Nitrogen 11 mg/dL (7-18); Calcium 9.4 mg/dL (8.5-10.1); Carbon Dioxide 25 mmol/L (21-32); Chloride 103 mmol/L (98-108); Estimated Glomerular Filt Rate > 60; Glucose 95 mg/dL (70-99); Osmolality Calculated 291 mOsm/kg (285-295); Potassium 4.1 mmol/L (3.5-5.1); Sodium 141 mmol/L (136-145); Total Protein 7.8 g/dL (6.4-8.2)
[2024-07-30 11:15] LABS: Band Neutrophils Percent 3 % (0-6); Neutrophils Absolute Manual 2.62 K/mm3 (1.7-7.2); Neutrophils Percent Manual 66 % (46-73); Total Cells Counted 100
[2024-07-30 11:16] LABS: Eosinophils Absolute Manual 0.03 K/mm3 (0.02-0.50); Eosinophils Percent Manual 1 % (1-6); Lymphocytes Absolute Manual 0.95 K/mm3 (1.1-4.5); Lymphocytes Percent Manual 25 % (18-44); Monocytes Absolute Manual 0.19 K/mm3 (0.1-0.90); Monocytes Percent Manual 5 % (3-9); Platelet Estimate Adequate (Adequate)
[2024-07-30 11:17] LABS: RSV RNA, RT-PCR Negative (Negative)
== END 2024-07-30 10:18 | disposition home or self-care (01) ==
PROVIDERS: PCP Internal Medicine; Visit Provider Internal Medicine
DX: R05.9 Cough, unspecified (principal)
CPT/HCPCS: 36415; 71046; 80053; 85025; 87634

== ENCOUNTER 2024-12-20 09:46 | Outpatient (CLI) | payer OTHER, SELFPAY ==
--- OUTSIDE RECORDS SUMMARY | 2024-12-20 09:50 | XMS_ITS | Referral Summary ---
Author Organization [facility] Address [address] [place] [address] Care Team Providers Care General Warehouse Worker Name Role Phone Evgeny Nicole MD Primary Care Provider [phone] Allergies Active Allergy Reactions Criticality Noted Date Comments Magnesium Sulfate (Bulk) Seizures High 05/23/2020 Sulfa (Sulfonamide Antibiotics) Vomiting Low 04/29 Medications lovastatin (MEVACOR) 20 mg tablet TAKE 1 TABLET BY MOUTH ONCE DAILY WITH EVENING MEAL 0 Active medroxyPROGESTE Giovanni (PROVERA) 10 mg tablet Take 10 mg by mouth daily 0 Active losartan (COZAAR) 25 mg tablet Take 1 tablet (25 mg total) by mouth daily 0 Active prochlorperazin e (COMPAZINE) 10 mg tablet Take 1 tablet (10 mg total) by mouth every 6 (six) hours as needed for nausea or vomiting 10 tablet 0 Active Additional Information Patient not taking.Reported on 07/25/2024 azithromycin (ZITHROMAX) 500 mg tablet 1 tab qhs for 3 days 3 tablet 0 Active Additional Information Patient not taking.Reported on 07/25/2024 ampicillin (PRINCIPEN) 500 mg capsule Take 1 capsule (500 mg total) by mouth 3 (three) times a day 21 capsule 0 Active Additional Information Patient not taking.Reported on 07/25/2024 LORazepam (ATIVAN) 0.5 mg tablet Take 1 tablet (0.5 mg total) by mouth every 8 (eight) hours as needed for anxiety (from steroids) 20 tablet 0 Active Additional Information Patient not taking.Reported on 07/25/2024 Active Problems Problem Noted Date Diagnosed Date Serum calcium elevated 04/27/2021 Kidney stones 05/23/2020 Scoliosis 02/27/2014 Syncope and collapse 10/12/2013 Overview (09/02/2016): SYNCOPE AND COLLAPSE Palpitations 10/12/2013 Overview (09/03/2016): PALPITATIONS Social History Tobacco Use Types Packs/Day Years Used Date Smoking Tobacco: Never Alcohol Use Standard Drinks/Week Comments No 0 (1 standard drink = 0.6 oz pur e alcohol) Comments No Sex and Gender Information Value Date Recorded Sex Assigned at Not on file Legal Sex Female 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 Gender Identity Not on file Sexual Orientation Not on file Last Filed Vital Signs Vital Sign Reading Time Taken Comments Blood Pressure 138/98 07/25/2024 5:20 PM LEAF CONDITIONER HELPER Pulse 76 07/25/2024 5:20 PM LEAF CONDITIONER HELPER Temperature 36.9 C (98.4 F) 07/25/2024 5:20 PM LEAF CONDITIONER HELPER Respiratory Rate 16 07/25/2024 5:20 PM LEAF CONDITIONER HELPER Oxygen Saturation 97% 07/25/2024 5:20 PM LEAF CONDITIONER HELPER Inhaled Oxygen Concentration - - Weight 65.3 kg (144 lb) 07/25/2024 5:20 PM LEAF CONDITIONER HELPER Height 152.4 cm (5') 09/21/2023 5:43 PM CDT Body Mass Index 28.12 09/21/2023 5:43 PM CDT Plan of Treatment Not on file Insurance [employer] SIG [id number] [employer] [facility] HMO Care Teams General Warehouse Worker Relationship Specialty Start Date End Date Evgeny Nicole MD [address] [place] [address] PCP - General 05/25/20
--- OUTSIDE RECORDS SUMMARY | 2024-12-20 09:50 | XMS_ITS | Clinical Summary ---
Author Organization [facility] Address [address] [address] [place] [address] Phone Care Team Providers Care Tumbler Machine Operator Name Role Phone Unavailable Primary Care Provider Unavailabl e Allergies No known active allergies Medications losartan (COZAAR) 25 mg tablet Take 25 mg by mouth daily. 05/07/2020 Active lovastatin (MEVACOR) 20 mg tablet TAKE 1 TABLET BY MOUTH ONCE DAILY WITH EVENING MEAL 02/25/2020 Active amlodipine besylate (AMLODIPINE ORAL) Take by mouth. Active Social History Tobacco Use Types Packs/Day Years Used Date Smoking Tobacco: Never Assessed Comments No Sex and Gender Information Value Date Recorded Sex Assigned at Not on file Legal Sex Female 5:14 PM PHARMACY ACCOUNT DIRECTOR Gender Identity Not on file Sexual Orientation Not on file Last Filed Vital Signs Vital Sign Reading Time Taken Comments Blood Pressure 107/64 02/16/2022 12:57 PM CDT Pulse 82 02/16/2022 12:57 PM CDT Temperature 36.4 C (97.6 F) 02/16/2022 12:57 PM CDT Respiratory Rate 17 02/16/2022 12:57 PM CDT Oxygen Saturation 99% 02/16/2022 12:57 PM CDT Inhaled Oxygen Concentration - - Weight 61.2 kg (135 lb) 02/16/2022 12:57 PM CDT Height 152.4 cm (5') 02/16/2022 12:57 PM CDT Body Mass Index 26.37 02/16/2022 12:57 PM CDT Plan of Treatment Health Maintenance Due Date Last Done Comments HPV VACCINES (1 - 3-dose series) 10/09/2006 DTAP/TDAP/TD VACCINES (1 - Tdap) 10/09/2010 HEPATITIS B VACCINES (1 of 3 - 19+ 3-dose series) 09/26 HPV/Cotest (21-29) 10/09/2012 CERVICAL CANCER SCREENING 10/09/2021 HPV/Cotest (30-65) 10/09/2021 PAP SMEAR 10/09/2021 INFLUENZA VACCINE (#1) 2024
--- OUTSIDE RECORDS SUMMARY | 2024-12-20 09:50 | XMS_ITS | Clinical Summary ---
Author Organization [facility] Address [address] [place] [address] Care Team Providers Care Sheet Fed Printer Name Role Phone Evgeny Nicole MD Primary Care Provider [phone] Allergies Active Allergy Reactions Criticality Noted Date [...] AND COLLAPSE Palpitations 10/12/2013 Overview (09/03/2016): PALPITATIONS Surgical History Surgery Date Site/Laterality Comments OTHER SURGICAL HISTORY back surgery, age 14 SPINAL FUSION Spinal Fusion Medical History Medical History Date Comments Sinusitis Sinusitis Gastroesophageal reflux disease GERD Family History Medical History Relation Name Comments Hypertension Father 2 Hypertension; Relation Name Status Comments Father 1 Alive Father 2 Social History Tobacco Use Types Packs/Day Years Used Date Smoking Tobacco: Never Alcohol Use Standard Drinks/Week Comments No 0 (1 standard drink = 0.6 oz pur e alcohol) Comments No Sex and Gender Information Value Date Recorded Sex Assigned at Not on file Legal Sex Female 2:24 AM GLASS LOADING EQUIPMENT TENDER Gender Identity Not on file Sexual Orientation Not on file Obstetrics History Last Filed Vital Signs Vital Sign Reading Time Taken Comments Blood Pressure 138/98 07/25/2024 5:20 PM GLASS LOADING EQUIPMENT TENDER Pulse 76 07/25/2024 5:20 PM GLASS LOADING EQUIPMENT TENDER Temperature 36.9 C (98.4 F) 07/25/2024 5:20 PM GLASS LOADING EQUIPMENT TENDER Respiratory Rate 16 07/25/2024 5:20 PM GLASS LOADING EQUIPMENT TENDER Oxygen Saturation 97% 07/25/2024 5:20 PM GLASS LOADING EQUIPMENT TENDER Inhaled Oxygen Concentration - - Weight 65.3 kg (144 lb) 07/25/2024 5:20 PM GLASS LOADING EQUIPMENT TENDER Height 152.4 cm (5') 09/21/2023 5:43 PM CDT Body Mass Index 28.12 09/21/2023 5:43 PM CDT Plan of Treatment Health Maintenance Due Date Last Done Comments Cervical Cancer Screening 1991 Depression Screening 1991 Hepatitis C Screening 1991 Varicella Vaccines (1 of 2 - 13+ 2-dose series) 10/09/2004 Regular Well Visit/Exam 18-64 10/09/2009 HPV Vaccines (1 - 3-dose SCDM series) 10/09/2018 Influenza Vaccine (#1) 2025 9, 03/21/2018, 03/06/2017, Additional history exists DTaP/Tdap/Td Vaccine (7 - Td or Tdap) 07/31/2030 07/31/2020, 08/10/2005, 09/02/1996, Additional history exists Hepatitis B Screening Completed 02/17/1997 , 09/09/1996, 08/05/1996 Pneumococcal vaccine <65 Aged Out No longer eligible based on patient's age to complete this topic Insurance [place] [id number] [facility] Care Teams Sheet Fed Printer Relationship Specialty Start Date End Date Evgeny Nicole MD [address] [place] [address] PCP - General 05/25/20
--- OUTSIDE RECORDS SUMMARY | 2024-12-20 09:50 | XMS_ITS | Clinical Summary ---
Author Organization [facility] Address [address] [place] [address] Phone Care Team Providers Care Sports Statistician Name Role Phone Chitra Nicole MD Primary Care Provider [phone] Allergies No known active allergies Medications medroxyPROGESTE Giovanni (DEPO-PROVERA) 150 MG/ML suspension prefilled syringe injection syringe BRING TO OFFICE FOR INJECTION 0 9 Active Active Problems Problem Noted Date Diagnosed Date Scoliosis 02/27/2014 Palpitations 10/12/2013 Overview (05/12/2019): PALPITATIONS Syncope and collapse 10/12/2013 Overview (05/12/2019): SYNCOPE AND COLLAPSE Microscopic hematuria Personal history of kidney stones Family History Medical History Relation Comments Lupus Cousin Hematuria Mother Lupus Paternal Grandmother Relation Status Comments Cousin Mother Paternal Grandmother Social History Tobacco Use Types Packs/Day Years Used Date Smoking Tobacco: Never Smokeless Tobacco: Never Alcohol Use Standard Drinks/Week Comments Not Currently 0 (1 standard drink = 0.6 oz pur e alcohol) Comments Unknown Sex and Gender Information Value Date Recorded Sex Assigned at Not on file Legal Sex Female 12:56 PM [facility] Gender Identity Not on file Sexual Orientation Not on file Last Filed Vital Signs Vital Sign Reading Time Taken Comments Blood Pressure 144/88 05/07/2019 1:33 PM TALENT ACQUISITION ASSOCIATE Pulse - - Temperature 36.1 C (97 F) 05/07/2019 1:33 PM TALENT ACQUISITION ASSOCIATE Respiratory Rate 18 05/07/2019 1:33 PM TALENT ACQUISITION ASSOCIATE Oxygen Saturation - - Inhaled Oxygen Concentration - - Weight 62.1 kg (137 lb) 05/07/2019 1:33 PM TALENT ACQUISITION ASSOCIATE Height 149.9 cm (4' 11) 05/07/2019 1:33 PM TALENT ACQUISITION ASSOCIATE Body Mass Index 27.67 05/07/2019 1:33 PM TALENT ACQUISITION ASSOCIATE Plan of Treatment Health Maintenance Due Date Last Done Comments Influenza Vaccine (#1) 2025 Insurance [facility] Care Teams Sports Statistician Relationship Specialty Start Date End Date Chitra Nicole MD [address] [place] [address] PCP - General Internal Medicine 05/07/19
--- OUTSIDE RECORDS SUMMARY | 2024-12-20 09:50 | XMS_ITS | Clinical Summary ---
Author Organization [facility] Address [address] [place] [address] Care Team Providers Care Shingle Cutter Name Role Phone Unavailable Primary Care Provider Unavailabl e Social History Tobacco Use Types Packs/Day Years Used Date Smoking Tobacco: Never Assessed Comments Unknown Sex and Gender Information Value Date Recorded Sex Assigned at Not on file Legal Sex Female 9:04 AM HAND PASTER Gender Identity Not on file Sexual Orientation Not on file Plan of Treatment Health Maintenance Due Date Last Done Comments Hepatitis C Virus (HCV) Screening 1991 TdaP Immunization 1991 Human Papillomavirus (HPV) Immunization (1 - 3-dose series) 10/09/2006 Pap Smear 10/09/2012 Cervical Cancer Screening (CCS) 10/09/2021 HPV/Cotest 10/09/2021 SARS-COV-2 Immunization ( season) 2024 Influenza Immunization (#1) 2025 10/0 05/2018, 03/21/2018, 03/06/2017, Additional history exists Respiratory Syncytial Virus (RSV) Immunization (Adult) (1 - 1-dose 75+ series) 10/09/2066 Hepatitis B Immunization Completed 997, 09/09/1996, 08/05/1996 DTaP/Tdap/Td Immunization Discontinued 2005, 09/02/1996, 01/29/1993, Additional history exists Meningococcal Immunization (ACWY) Aged Out No longer eligible based on patient's age to complete this topic Pneumococcal Immunization Combined Aged Out No longer eligible based on patient's age to complete this topic Rotavirus Immunization Aged Out No lo nger eligible based on patient's age to complete this topic Insurance [employer] on file
--- OUTSIDE RECORDS SUMMARY | 2024-12-20 09:51 | XMS_ITS | Patient Health Record ---
Author Organization [facility] ([address]) Address [address] [place] [address] Care Team Providers Care Hand Bobbin Cleaner Name Role Phone Chitra Nicole Primary Care Provider [facility]ail[facility] Unavailable [phone] Deepali Houston Unavailable [phone] Allergies Allergen (clinical drug ingredient) Drug/Non Drug Allergy documented on EMR Reaction Allergy Type Onset Date Status magnesium sulfate Magnesium Sulfate seizure Drug Allergy Active Reason For Referral Reason Xolair, 300mg q 4 we eks Diagnosis 1 Idiopathic urticaria (L50.1) Referral Organization [facility] Referring Provider First Name Moses Referring Provider Last Name Lawrence Referring Provider Speciality Allergy/Im munology Referral Priority Routine Medications Medication SIG (Take, Route, Frequency, Duration) Notes Start Date End Date Status MONTELUKAST 10 mg 1 tab(s) orally once a day; Duration: 30 days Active amLODIPine Besylate 2.5 MG 1 tab(s) orally once a day Active Benadryl Allergy 25 MG 1 cap(s) orally e very 6 hours Active Montelukast Sodium 10 MG Take 1 tablet b y mouth once daily; Duration: 30 Not-Livan ing Xolair 300 MG/2ML as directed Subcutan eous every 4 weeks 02/05/2024 Active Lovastatin 40 MG 1 tab(s) orally once a day Active Pantoprazole Sodium 40 MG 1 tab(s) orally once a day Active Losartan Potassium 100 MG 1 tab(s) orally once a day Active EPINEPHrine 0.3 MG/0.3ML as directed Inj ection as needed; Duration: 30 days Active predniSONE 20 MG 2 tablet Orally Once a day; Duration: 5 days 01/24/2024 Not-Taking Montelukast Sodium 10 MG 1 tablet Orally Once a day; Duration: 90 days Active PEPCID 20 mg 1 tab(s) orally 2 ti mes a day; Duration: 30 days Active Cetirizine HCl 10 MG 1 tab(s) orally BID ; Duration: 30 days 11/06/2023 Not-Taking CETIRIZINE 10 mg 1 tab(s) orally twic e a day; Duration: 30 days Active Pepcid 20 mg 1 tab(s) orally 2 ti mes a day; Duration: 30 days Active Cetirizine HCl 10 MG 1 tab(s) orally onc e a day Not-Taking Social History Tobacco Use: Social History Observation Description Date Details (start date - stop date) Never Smoker NA - NA Tobacco Control (Standard) Question Answer Notes Tobacco use: Nonsmoker Problems Problem Type SNOMED Code ICD Code Onset Dates Problem Status W/U Status Risk Notes Problem Shortness of breath (120302692) Shortness of breath (R06.02) Active confirmed Problem Chronic allergic conjunctivitis (22709436) Other chronic allergic conjunctivitis (H10.45) Active confirmed Problem Allergic rhinitis (47731983) Other allergic rhinitis (J30.89) Active confirmed Problem Chronic rhinitis (10095816) Chronic rhinitis (J31.0) Active confirmed Problem Hypertrophy of nasal turbinates (70510577) Hypertrophy of nasal turbinates (J34.3) Active confirmed Problem Allergic rhinitis caused by animal hair and dander (801920828070052) Allergic rhinitis due to animal (cat) (dog) hair and dander (J30.81) Active confirmed Problem Idiopathic urticaria (85178668) Idiopathic urticaria (L50.1) Active confirmed Problem Swelling of head (490004433) Localized swelling, mass and lump, head (R22.0) Active confirmed Vital Signs Blood pressure diastolic 90 mm Hg 02/05/2024 Oximetry 100 % 02/05/2024 Height 60 in 02/05/2024 Blood pressure systolic 137 mm Hg 02/05/2024 Weight 145 lbs 02/05/2024 BMI 28.32 kg/m2 02/05/2024 Encounters Encounter Location Date Provider Diagnosis [facility] [address] [id number] 01/23/2024 Moses Bravo Localized swelling, mass and lump, head R22.0 ; Idiopathic urticaria L50.1 ; Hypertrophy of nasal turbinates J34.3 ; Chronic rhinitis J31.0 and Shortness of breath R06.[address] [address] 02/05/2024 Deepali Houston Localized swelling, mass and lump, head R22.0 ; Idiopathic urticaria L50.1 ; Hypertrophy of nasal turbinates J34.3 ; Chronic rhinitis J31.0 ; Shortness of breath R06.02 and Elevated blood-pressure reading, without diagnosis of hypertension R03.[address] [address] 02/05/2024 Moses Bravo [address] [address] 01/20/2024 Moses Bravo [address] [address] 01/24/2024 Moses Bravo Assessments Encounter Date Diagnosis (ICD Code) Assessment Notes Treatment Notes Treatment Clinical Notes Section Notes 01/23/2024 Idiopathic urticaria (ICD-10 - L50.1) as above. Plan on trial of Xolair with history, presentation, pictures, and timeframe of symptoms > 6 weeks c/w chronic idiopathic urticaria. Hives persist despite 4X FDA approved dosing of antihistamines 01/23/2024 Localized swelling, mass and lump, head (ICD-10 - R22.0) On September 18, Luanne was working in her basement, at 4PM. At the time started to have increases SOB and cough. Soon after, her eyelids and lips started to swell. This continued into hives. She went to [place] [facility] and they shoved a bunch of [...] on buccal swab. She was sent to [facility] which came back normal. She was given abx followed by a second round approx a week later with enlarged tonsil. No issues since. Of note, she has eaten a Damián wrap from [employer] and tolerated without issue. She also had [...] the moment unless clear correlation is noted. CIU work-up returned WNL other than a borderline elevated tryptase level at 12.2. Given this, Recheck of tryptase level was again sent out last vist though yet to be obtained. Yet to obtain urine histamines given suspicions for underlying mast cell conditions. Advised doing so. If elevated, will plan on check for hereditary alapha tryptasemia. Keep AIE on hand at all times. Recent EGD showed inflammation. Advised checking in with GI as she will be on both Pepcid and Omeprazole. Given recent uptick in episodes of swelling and hives occuring most days, will plan on trial of Xolair. BI work-up started today. Of note, she will be losing insurance soon. Will plan on returning in 2 weeks to start Xolair via sample. She is aware of the black box warning 02/05/2024 Idiopathic urticaria (ICD-10 - L50.1) As above. Continue trial of Xolair with history, presentation, pictures, and timeframe of symptoms > 6 weeks c/w chronic idiopathic urticaria. Hives persist despite 4X FDA approved dosing of antihistamines 02/05/2024 Localized swelling, mass and lump, head (ICD-10 - R22.0) On September 18, Luanne was working in her basement, at 4PM. At the time started to have increased SOB and cough. Soon after, her eyelids and lips started to swell. She then developed hives. She went to [place] [facility] and they shoved a bunch of medications in an IV. She at a Damián salad around 11:30 that AM. She also took DayQuil prior as well. The following day, she still felt tingling along her lips with the continued abdominal pain. Lab work was obtained with normal IgG, A, and M levels with normal C4. Tryptase WNL at 9. The next morning, she noticed increased chest tightness. She was given BRENNEN at the time which she denies benefit. Additional lab work was obtained with d-dimer and was noted + to strep on buccal swab. She was sent to [facility] which came back normal. She was given abx followed by a second round approx a week later with enlarged tonsil. Of note, she has eaten a Caesar wrap from [employer] and tolerated without issue. She also had Tylenol without issue. She otherwise denies any prior history of hives. She does not drink alcohol and denies any NSAID use that day. 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 - The most likely underlying triggers is the strep infection as illness can bring about anaphylactic-like responses. The DayQuil is unlikely as she has tolerated Tylenol since then. That said, I cannot rule out dextromethorphan and Phenylephrine as unlikely as it is. - Okay to continue NSAIDs for the moment unless clear correlation is noted. - CIU work-up returned WNL other than a borderline elevated tryptase level at 12.2. Given this, Recheck of tryptase level was sent and returned also elevated at 11.5. Due to this, recommend screening for hereditary alpha trytasemia. Also discussed referral to hematology for potential biopsy. Luanne is considering both of these at this time. - 24-hour urine histamine returned within normal limits. Still awaiting methylhistamine. - Keep AIE on hand at all times. - Recent EGD showed inflammation. Luanne also reports frequent upset stomach that she didn't previously experience. Again advised consult with GI as she continues on Pepcid and Omeprazole. - Given recent uptick in episodes of swelling and hives occurring most days, we previously discussed trial of XOLAIR. Risks, benefits, alternatives and schedule was discussedand we started treatment with XOLAIR today. She tolerated dosing w/o issue. She was monitored for a total of two hours after administration. Discussed the risks for malignancy, thrombosis, and cardiovascular disease but studies show this is not causative. She is required to have Epinephrine on hand. - Luanne is to return in 4 weeks for XOLAIR administration and further evaluation and management 02/05/2024 Hypertrophy of nasal turbinates (ICD-10 - J34.3) Reurrent upper airway sympotms concerning for ARC. Not interested in further work-up. Would consider SPT when viable 01/23/2024 Hypertrophy of nasal turbinates (ICD-10 - J34.3) Reurrent upper airway sympotms concerning for ARC. Not interested in further work-up. Would consider SPT when viable 01/23/2024 Chronic rhinitis (ICD-10 - J31.0) as above 02/05/2024 Chronic rhinitis (ICD-10 - J31.0) as above 02/05/2024 Shortness of breath (ICD-10 - R06.02) She [...] d-dimer workup. She is a lifelong non-smoker. Prior spirometry was performed showing mild restriction without post-BD response. Currently holding BRENNEN due to lack or perceived benefit. If issues of SOB persist, consider trial of ICS 01/23/2024 Shortness of breath (ICD-10 - R06.02) She [...] d-dimer workup. She is a lifelong non-smoker. Prior spirometry was performed showing mild restriction without post-BD response. Currently holding BRENNEN due to lack or perceived benefit. If issues of SOB persist, consider trial of ICS 02/05/2024 Elevated blood-pressure reading, without diagnosis of hypertension (ICD-10 - R03.0) BP elevated today without symptoms of urgency or emergency. Continue serial checks and follow-up with PCP 01/23/2024 Other 02/05/2024 Other Plan Of Treatment No Information Medical (General) History Medical History History ICD Code Hypertension Hyperlipidemia Chronic rhinitis J31.0 Hypertrophy of nasal turbinates J34.3 Localized swelling, mass and lump, head R22.0 Shortness of breath R06.02 Idiopathic urticaria L50.1 Surgical History Surgery Date(Month/Year) 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
--- OUTSIDE RECORDS SUMMARY | 2024-12-20 09:51 | XMS_ITS | Clinical Summary ---
Author Organization [facility] Address [address] [place] [address] Care Team Providers Care Staple Side Laster Name Role Phone Unavailable Primary Care Provider Unavailabl e Social History Tobacco Use Types Packs/Day Years Used Date Smoking Tobacco: Never Assessed Comments Unknown Sex and Gender Information Value Date Recorded Sex Assigned at Not on file Legal Sex Female 5:12 PM CDT Gender Identity Not on file Sexual Orientation Not on file Plan of Treatment Health Maintenance Due Date Last Done Comments Cervical Cancer Screening Pa p Smear (Age 30 to 64) Every 3 Years 1991 Annual Physical 10/09/1994 Hepatitis C 10/09/2009 DTaP, Tdap and Td Vaccines ( 1 - Tdap) 10/09/2010 Hepatitis B Vaccines (1 of 3 - 19+ 3-dose series) 10/09/2010 HPV Vaccines (1 - 3-dose SCD M series) 10/09/2018 Cervical Cancer Screening Pa p with HPV Testing (Age 30 to 64) Every 5 Years 10/09/2021 Cervical Cancer Screening with HPV 10/09/2021 COVID-19 Vaccine (2023-2 5 season) 2024 Meningococcal B Vaccine Aged Out No l onger eligible based on patient's age to complete this topic Meningococcal Vaccine Aged Out No brandy makenna eligible based on patient's age to complete this topic Pneumococcal Vaccine: Pediat rics (0 to 5 Years) and At-Risk Patients (6 to 49 Years) Aged Out No longer eligible b ased on patient's age to complete this topic RSV Immunizations Under 20 Months Aged Out No longer eligible based on patient's age to complete this topic
[2024-12-20 09:58] LABS: Hematocrit 41.3 % (35.0-49.0); Hemoglobin 13.4 g/dL (12.0-15.0); Mean Corpuscular HGB Conc 32.4 g/dL (32-36); Mean Corpuscular Hemoglobin 29.5 pg (27.0-31.0); Mean Corpuscular Volume 90.8 fL (78.0-102.0); Platelet Count Result 255 K/mm3 (150-420); Red Blood Count 4.55 M/mm3 (4.20-5.40); White Blood Count 6.3 K/mm3 (4.8-10.8)
[2024-12-20 09:59] LABS: Add Urine Microscopic? YES; Appearance Urine Clear (Clear); Glucose Urine UA Negative (Negative); Leukocyte Esterase Ur 2+ (Negative); Nitrate Urine Negative (Negative); Specific Grav Ur 1.020 (1.010-1.020)
[2024-12-20 10:20] LABS: Alanine Aminotransferase 22 U/L (6-35); Albumin Level 4.5 g/dL (3.5-5.1); Alkaline Phosphatase 60 U/L (38-126); Anion Gap 8 mmol/L (4-12); Aspartate Amino Transferase 25 U/L (14-36); Bilirubin,Total 0.6 mg/dL (0.2-1.3); Blood Urea Nitrogen 16 mg/dL (7-17); Calcium 9.4 mg/dL (8.4-10.2); Carbon Dioxide 25 mmol/L (22-30); Chloride 107 mmol/L (98-107); Cholesterol 243 mg/dL (0-200); Creatine Kinase 43 U/L (30-135); Estimated Glomerular Filt Rate > 60; Glucose 94 mg/dL (65-110); HDL Direct 47 mg/dL; Osmolality Calculated 291 mOsm/kg (285-295); Potassium 4.7 mmol/L (3.4-5.0); Sodium 140 mmol/L (137-145); Total Protein 7.1 g/dL (6.3-8.2); Triglycerides 173 mg/dL (<150)
[2024-12-20 10:36] LABS: Free T4 Free Thyroxine 1.26 ng/dL (0.78-2.19)
[2024-12-20 10:50] LABS: Thyroid Stimulating Hormone 1.950 uIU/mL (0.465-4.680)
== END 2024-12-20 09:47 | disposition home or self-care (01) ==
LOC: CHSLAB 09:48
PROVIDERS: PCP Internal Medicine; Visit Provider Internal Medicine
DX: Z00.00 Encounter for general adult medical examination without abnormal findings (principal)
CPT/HCPCS: 36415; 80053; 80061; 81001; 82550; 84439; 84443; 85027

== ENCOUNTER 2025-03-02 12:05 | Emergency (ER) | payer OTHER, SELFPAY ==
[2025-03-02 12:15] VITALS: BP 149/98; PULSE 95; RESP 16; TEMP 36.4; O2SAT 100
--- NOTE | 2025-03-02 12:25 | ED_ITS ---
HPI - Dental/Oral General Chief complaint: Dental/Oral Stated complaint: JAW/NECK SWELLING/EAR/NECK PAIN Time Seen by Provider: 03/02/25 12:26 Source: patient Mode of arrival: ambulatory History of Present Illness HPI Narrative: 34-year-old female presented for complaint of ?neck swelling. Onset 5 days. Endorses 2 weeks ago she had dental extraction to left lower molar. Denies dental pain or facial swelling. States she took steroid as prescribed at onset of swelling by the dentist, and completed the course today. Says the steroid helped for the first 2 days then swelling symptoms returned. Denies significant pain, states it feels like lymph nodes are swollen. Denies ear pain, decreased hearing, dizziness, tinnitus, sore throat or fever. Endorses recent endoscopy and takes pepcid. MD Complaint: tooth pain Related Data Allergies Allergy/AdvReac Type Severity Reaction Status Date / Time magnesium sulfate Allergy Unknown SEIZURE Verified 03/02/25 12:21 adhesive tape Allergy Rash Verified 03/02/25 12:21 linezolid AdvReac Unknown VOMITING Verified 03/02/25 12:21 Sulfa (Sulfonamide AdvReac Unknown NAUSEA Verified 03/02/25 12:21 Antibiotics) Components of Dayquil Allergy Anaphylaxis Uncoded 02/20/25 08:15 Review of Systems Review of Systems: CONSTITUTIONAL: Denies body aches, fever, chills ENT: Denies rhinorrhea, congestion, sore throat, or otalgia. Reports neck swelling. CARDIOVASCULAR: Denies chest pain, palpitations RESPIRATORY: Denies cough or dyspnea. SKIN: Denies rash MUSCULOSKELETAL: Denies myalgia. NEUROLOGIC: Denies headache, numbness, tingling, or weakness. COUNTS INCLUDE 234 BEDS AT THE [facility] Past Medical History Medical History Hyperlipidemia Hypertension Acute unilateral obstructive uropathy History of blood transfusion Anemia Anxiety Chronic back pain Scoliosis UTI (urinary tract infection) Endometriosis GERD (gastroesophageal reflux disease) Irritable bowel Pneumonia Bronchitis Seizure Seasonal allergies Surgical History Surgical History [place] teeth removed 01/2025 History of spinal fusion History of laparoscopy Family History Family History Grandparent Breast cancer Social History Social History Smoking status: Never smoker Alcohol intake: never Substance use type: does not use Living arrangements: other Additional living arrangements comments: with sp Gender identity (if verbalized by the patient): Female Comments At time of signature, I have reviewed and agree with nursing past medical, surgical, social and family history unless otherwise noted. Please see nursing chart for further information. There is no relevant family history pertinent to the presenting complaint Exam Narrative: GENERAL: Well appearing EYES: EOMI. No redness or drainage. Conjunctivae normal. ENT: Left lower dental incision appears healing to #18, no surrounding erythema no purulent drainage. No facial swelling. Mucous membranes pink and moist. TMs normal bilaterally. Throat normal. no dysphagia, odynophagia, dysphonia, or dyspnea. No uvular deviation or soft palate edema. NECK: Normal AROM; nontender. No lymphadenopathy; endorses swelling. no induration below mandible, no apparent goiter. CHEST: No respiratory distress. Clear to auscultation. HEART: Regular rate and rhythm. SKIN: Warm, dry, no rash. Normal skin turgor. NEURO: No focal deficits. Alert and oriented x3. Gait steady. Course Course Emergency Course: Patient is aware of diagnosis, understands and agrees to treatment plan. Anticipatory guidance given. Patient agrees to follow-up as directed and is aware of reasons to seek care at the emergency department. Portions of this record may have been created with voice recognition software Level of Care: Express Care Visit Vital Signs Vital signs: Vital Signs Temperature 97.6 F 03/02/25 12:15 Pulse Rate 95 03/02/25 12:15 Respiratory Rate 16 03/02/25 12:15 Blood Pressure 149/98 H 03/02/25 12:15 Pulse Oximetry 100 03/02/25 12:15 Temperature 97.6 F 03/02/25 12:15 Pulse Rate 95 03/02/25 12:15 Respiratory Rate 16 03/02/25 12:15 Blood Pressure 149/98 H 03/02/25 12:15 Pulse Oximetry 100 03/02/25 12:15 MDM - Dental/Oral MDM Narrative Medical decision making narrative: Discussed physical exam findings. There are no focal signs of space occupying lesions that are compromising to the airway; Patient is non-toxic appearing. The floor of the mouth is soft with no signs of Brendan's Angina; Patient is without trismus or drooling and able to swallow secretions. Patient is felt appropriate for discharge home with dental follow up and/or PCP. Advised supportive measures and signs/symptoms to go to the ER. Pt is appropriate for outpt treatment and f/u. Differential Diagnosis Differential diagnosis: Likely gingival abscess, dental caries, toothache, denta l abscess, fracture of tooth, aphthous ulcer and other (Otitis externa, TM rupture, cholesteatoma, foreign body, auricular perichondritisotitis media, bullous myringitis, mastoiditis, eustachian tube dysfunction, goiter, lymphadenopathy) Discharge Plan Discharge Clinical Impression: Neck pain Patient Disposition: Home Condition: Stable Instructions: Antibiotic Form Additional Instructions: Continue to take Pepcid, ibuprofen You can add Tylenol Heating pad or ice as needed --Follow up with your PCP --Go to the ER immediately if you cannot swallow your saliva, trouble breathing/wheezing, throat swelling, pain is persistent and severe Patient Language: Wallisian Prescriptions: No Action medroxyprogesterone 150 mg/mL syringe 150 mg IM [id number] Qty: 1 3RF Follow-up/Referrals: Chitra Nicole MD [Primary Care Provider, Internal Medicine] Time of Disposition: 12:44
== END 2025-03-02 12:45 | disposition home or self-care (01) ==
PROVIDERS: Emergency Provider Nurse Practitioner Family; PCP Internal Medicine
DX: M54.2 Cervicalgia (principal); I10 Essential (primary) hypertension; E78.5 Hyperlipidemia, unspecified; N80.9 Endometriosis, unspecified; K21.9 Gastro-esophageal reflux disease without esophagitis
CPT/HCPCS: 99211; G0463

== ENCOUNTER 2025-03-18 16:37 | Outpatient (CLI) | payer OTHER, SELFPAY ==
--- OUTSIDE RECORDS SUMMARY | 2023-11-11 16:30 | XMS_ITS ---
Author Organization [facility] [employer] [place] ([address]) Address [address] [place] [address] Care Team Providers Care Herbologist Name Role Phone Chitra Nicole Primary Care Provider Unavailabl Moses Rudolph Unavailable [phone] [employer], Provider Unavailable Unavailab le Allergies Allergen (clinical drug ingredient) Drug/Non Drug Allergy documented on EMR Reaction Allergy Type Onset Date Status magnesium sulfate Magnesium Sulfate seizure Drug Allergy Active REASON FOR VISIT [facility] To [facility] Conversion Encounter Medications Medication SIG (Take, [...] Encounters Encounter [facility] Date [facility] [address] 11/11/2023 Provider Adan Localized swelling, mass and [...] Notes * Luanne CHADOB:1990 (34 yo F)Acc No.[id number]:11/11/2023 Patient: Luanne APONTE Provider: Conrad Leong :1990 A ge:33 Y S ex:Female Date:11/11/2023 Address:[address] [place], [place] [id number] Pcp:Chitra Nicole Subjective: * Chief Complaints: * 1 . [facility] To [facility] Conversion Encounter. * Medical History: * [...] * Electronic signature of Felisa Arellano on 03/18/2025 at 07:49 PM CDT Sign off status: Pending * Provider: Conrad xiao Migration Date: 0 11/11/2023 Generated for Maira ma/Carole/Elisa on: 1 07:49 PM CDT
--- OUTSIDE RECORDS SUMMARY | 2023-12-04 12:30 | XMS_ITS ---
Author Organization [facility] [facility] [employer] [place] ([address]) Address [address] [place] [address] Care Team Providers Care Accounts Payable Coordinator Name Role Phone Chitra Nicole Primary Care Provider Moses Barksdale Unavailable [phone] REASON FOR VISIT New onset episode of [...] Active Encounters Encounter Location Date Provider Diagnosis [facility] [address] [place] [address] 12/04/2023 Moses Bravo Localized swelling, mass and [...] This continued into hives. She went to [place] ED and they shoved a bunch of [...] on buccal swab. She was sent to [facility] which came back normal. She was given abx followed by a second round approx a week later with enlarged tonsil. No issues since. Of note, she has eaten a Damián wrap from [employer] and tolerated without issue. She also had [...] This continued into hives. She went to [place] ED and they shoved a bunch of [...] on buccal swab. She was sent to [facility] which came back normal. She was given abx followed by a second round approx a week later with enlarged tonsil. No issues since. Of note, she has eaten a Damián wrap from [employer] and tolerated without issue. She also had [...] Notes * Luanne CHADOB:1990 (34 yo F)Acc No.[id number]:12/04/2023 Progress Notes Patient: Luanne APONTE Provider: Damien Bravo PA-C :1990 A ge:33 Y S ex:Female Date:12/04/2023 Address:[address] [place], [place] [id number] Pcp:Chitra Nicole Subjective: * Chief Complaints: * [...] to form up her next. Went to [place] ED and they shoved a bunch of [...] on buccal swab. She was sent to [facility] which came back normal. She was given abx. She was given a second abx approx a week later with enlarged tonsil. No issues since. Of note, she has eaten a Damián wrap from [employer] and tolerated without issue. She otherwise denies [...] ffective treatments: o ral antihistamines (Zyrtec or Shlaini or Claritin) Ears S pecific affected area: [...] ave you ever had a pneumococcal vaccine (CPJ-Upxutxd-Qvsrxlnua)? N o H ave you ever had a tetanus vaccine (MLuv-Dgju-Dg)? Y es Ear Infections D o you [...] H ave you been seen by an plate driller or export sales assistant for other infections? N o * Other [...] H ave you been evaluated by an plate driller previously for possible drug allergy? N o [...] o H ave you previously seen an plate driller for evaluation of possible stinging insect allergy? [...] MEDS VERIFIED W/PT OR RE, A4617 Mouthpiece, 76794 RESPIRATORY FLOW VOLUME LOOP, 50275 NEB/MDI DEMO, Modifiers: 59 , 81077 NEB/MDI RX INITIAL, 62358 SPIROMETRY CHALLENGE, A7003 ADMN SET SM VOL [...] Management) * Billing Information: * Visit Code: 05629 Office Visit, New Pt., Level 5. Modifiers: 25 * Procedure Codes: G8427 DOC MEDS VERIFIED W/PT OR RE. A4617 Mouthpiece. 43608 RESPIRATORY FLOW VOLUME LOOP. 22481 NEB/MDI DEMO. Modifiers: 59 75173 NEB/MDI RX INITIAL. 18168 SPIROMETRY CHALLENGE. A7003 ADMN SET SM VOL NONFILTR NEB DISPBL. J7613 NOC ALBUTEROL INHAL UNIT DOSE 1 MG. Units: 3.00. * Electronic signature of Sudhir Bravo PA-C on 03/18/2025 at 07:48 PM CDT Sign off status: Pending * Provider: Damien Bravo PA-C Date: 0 12/04/2023 Generated for Maira ma/Carole/Rafaelsmitting on: 1 07:48 PM CDT History and Physical Notes * HPI (History [...] to form up her next. Went to [place] ED and they shoved a bunch of [...] on buccal swab. She was sent to [facility] which came back normal. She was given abx. She was given a second abx approx a week later with enlarged tonsil. No issues since. Of note, she has eaten a Damián wrap from [employer] and tolerated without issue. She otherwise denies [...] gh and or wheezing Prescription cough medicine:: Ole Zimmerman Rescue inhaler or nebulizer treatment:: Albuterol Oral [...] Have you ever had a pneumococcal vaccine (HMC-Dblqnzb-Hqtfidykm)?: No Have you ever had a tetanus [...] throat) Have you been seen by an plate driller or export sales assistant for other infections?: No *Other Rash and [...] Have you been evaluated by a n plate driller previously for possible drug allergy?: No *Stinging [...] autoinjector?: No Have you previously seen an plate driller for evaluation of possible stinging insect allergy?: [...]
[2025-03-18 17:03] LABS: Hematocrit 40.5 % (35.0-49.0); Hemoglobin 13.3 g/dL (12.0-15.0); Mean Corpuscular HGB Conc 32.8 g/dL (32-36); Mean Corpuscular Hemoglobin 30.3 pg (27.0-31.0); Mean Corpuscular Volume 92.3 fL (78.0-102.0); Platelet Count Result 306 K/mm3 (150-420); Red Blood Count 4.39 M/mm3 (4.20-5.40); White Blood Count 7.9 K/mm3 (4.8-10.8)
[2025-03-18 17:06] LABS: Add Urine Microscopic? YES; Glucose Urine UA Negative (Negative); Leukocyte Esterase Ur 2+ (Negative); Nitrate Urine Negative (Negative); Specific Grav Ur >= 1.030 (1.010-1.020)
[2025-03-18 17:12] LABS: Appearance Urine Cloudy (Clear)
[2025-03-18 17:30] LABS: Alanine Aminotransferase 23 U/L (6-35); Albumin Level 4.8 g/dL (3.5-5.1); Alkaline Phosphatase 65 U/L (38-126); Anion Gap 12 mmol/L (4-12); Aspartate Amino Transferase 24 U/L (14-36); Bilirubin,Total 0.4 mg/dL (0.2-1.3); Blood Urea Nitrogen 12 mg/dL (7-17); Calcium 10.0 mg/dL (8.4-10.2); Carbon Dioxide 21 mmol/L (22-30); Chloride 107 mmol/L (98-107); Cholesterol 195 mg/dL (0-200); Estimated Glomerular Filt Rate > 60; Glucose 93 mg/dL (65-110); HDL Direct 70 mg/dL; Iron 63 ug/dL (37-170); Osmolality Calculated 289 mOsm/kg (285-295); Potassium 4.3 mmol/L (3.4-5.0); Sodium 140 mmol/L (137-145); Total Protein 8.5 g/dL (6.3-8.2); Triglycerides 136 mg/dL (<150)
[2025-03-18 17:48] LABS: Free T3 4.30 pg/mL (2.18-3.98); Free T4 Free Thyroxine 1.07 ng/dL (0.78-2.19)
[2025-03-18 18:02] LABS: Thyroid Stimulating Hormone 2.800 uIU/mL (0.465-4.680)
[2025-03-18 18:05] LABS: Ferritin 39.40 ng/mL (6.24-137)
[2025-03-18 18:06] LABS: Hemoglobin A1C 5.5 % (<5.7)
--- OUTSIDE RECORDS SUMMARY | 2025-03-18 19:48 | XMS_ITS | Clinical Summary ---
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
--- OUTSIDE RECORDS SUMMARY | 2025-03-18 19:48 | XMS_ITS | Clinical Summary ---
Author Organization [facility] Address [address] [place] [address] Care Team Providers Care Supervisor Wall Mirror Department Name Role Phone Evgeny Nicole MD Primary Care Provider [phone] Allergies Active Allergy Reactions Criticality Noted Date [...] on file Legal Sex Female 2:24 AM CAR KNOCKER Gender Identity Not on file Sexual Orientation Not on file Obstetrics History Last Filed Vital Signs Vital Sign Reading Time Taken Comments Blood Pressure 138/98 07/25/2024 5:20 PM CAR KNOCKER Pulse 76 07/25/2024 5:20 PM CAR KNOCKER Temperature 36.9 C (98.4 F) 07/25/2024 5:20 PM CAR KNOCKER Respiratory Rate 16 07/25/2024 5:20 PM CAR KNOCKER Oxygen Saturation 97% 07/25/2024 5:20 PM CAR KNOCKER Inhaled Oxygen Concentration - - Weight 65.3 kg (144 lb) 07/25/2024 5:20 PM CAR KNOCKER Height 152.4 cm (5') 09/21/2023 5:43 PM [...] patient's age to complete this topic Insurance [place] [id number] [facility] Care Teams Supervisor Wall Mirror Department Relationship Specialty Start Date End Date Evgeny Nicole MD [address] [place] [address] PCP - General 05/25/20
--- OUTSIDE RECORDS SUMMARY | 2025-03-18 19:49 | XMS_ITS | Clinical Summary ---
Author Organization [facility] Address [address] [address] [place] [address] Phone Care Team Providers Care Client Support Coordinator Name Role Phone Unavailable Primary Care Provider [...] on file Legal Sex Female 5:14 PM RN FLOAT Gender Identity Not on file Sexual Orientation [...] Health Maintenance Due Date Last Done Comments DTAP/TDAP/TD VACCINES (1 - Tdap) 10/09/2010 HEPATITIS B VACCINES (1 of 3 - 19+ 3-dose series) 09/26 HPV/Cotest (21-29) 10/09/2012 HPV VACCINES (1 - 3-dose SCDM series) 10/09/2018 CERVICAL CANCER SCREENING 10/09/2021 HPV/Cotest (30-65) 10/09/2021 PAP SMEAR 10/09/2021 INFLUENZA VACCINE (#1) 2024
--- OUTSIDE RECORDS SUMMARY | 2025-03-18 19:49 | XMS_ITS | Clinical Summary ---
Author Organization [facility] Address [address] [place] [id number] Care Team Providers Care Telegraph Mechanic Name Role Phone Unavailable Primary Care Provider [...] HPV 10/09/2021 COVID-19 Vaccine (2023-2 5 season) 2025 Influenza Adult (#1) 2025 Hepatitis A Vaccines Aged Out No long er eligible based on patient's age to complete this topic Meningococcal B Vaccine Aged Out No l [...]
--- OUTSIDE RECORDS SUMMARY | 2025-03-18 19:49 | XMS_ITS | Clinical Summary ---
Author Organization [facility] Address [address] [place] [address] Phone Care Team Providers Care Middle School Spanish Teacher Name Role Phone Chitra Nicole MD Primary Care Provider [phone] Allergies No known active allergies Medications medroxyPROGESTE [...] on file Legal Sex Female 12:56 PM [facility] Gender Identity Not on file Sexual Orientation Not on file Last Filed Vital Signs Vital Sign Reading Time Taken Comments Blood Pressure 144/88 05/07/2019 1:33 PM SAP FUNCTIONAL ANALYST Pulse - - Temperature 36.1 C (97 F) 05/07/2019 1:33 PM SAP FUNCTIONAL ANALYST Respiratory Rate 18 05/07/2019 1:33 PM SAP FUNCTIONAL ANALYST Oxygen Saturation - - Inhaled Oxygen Concentration - - Weight 62.1 kg (137 lb) 05/07/2019 1:33 PM SAP FUNCTIONAL ANALYST Height 149.9 cm (4' 11) 05/07/2019 1:33 PM SAP FUNCTIONAL ANALYST Body Mass Index 27.67 05/07/2019 1:33 PM SAP FUNCTIONAL ANALYST Plan of Treatment Health Maintenance Due Date Last Done Comments Influenza Vaccine (#1) 2025 Insurance [facility] Care Teams Middle School Spanish Teacher Relationship Specialty Start Date End Date Chitra Nicole MD [address] [place] [address] PCP - General Internal Medicine 05/07/19
--- OUTSIDE RECORDS SUMMARY | 2025-03-18 19:49 | XMS_ITS | Patient Health Record ---
Author Organization [facility] [employer] ([address]) Address [address] [place] [address] Care Team Providers Care Tank Inspector Name Role Phone Chitra Nicole Primary Care Provider Moses Barksdale Unavailable [phone] Allergies Allergen (clinical drug ingredient) Drug/Non Drug Allergy documented on EMR Reaction Allergy Type Onset Date Status magnesium sulfate Magnesium Sulfate seizure Drug Allergy Active Reason For Referral No Information Medications Medication SIG (Take, Route, Frequency, Duration) [...] Status Risk Notes Problem Shortness of breath (492915046) Shortness of breath (R06.02) Active confirmed Problem Chronic allergic conjunctivitis (62929215) Other chronic allergic conjunctivitis (H10.45) Active confirmed Problem Allergic rhinitis (77465340) Other allergic rhinitis (J30.89) Active confirmed Problem Chronic rhinitis (18404922) Chronic rhinitis (J31.0) Active confirmed Problem Hypertrophy of nasal turbinates (77375260) Hypertrophy of nasal turbinates (J34.3) Active confirmed Problem Allergic rhinitis caused by animal hair and dander (995083627589412) Allergic rhinitis due to animal (cat) (dog) hair and dander (J30.81) Active confirmed Problem Idiopathic urticaria (04631455) Idiopathic urticaria (L50.1) Active confirmed Problem Swelling of head (728418855) Localized swelling, mass and lump, head (R22.0) Active confirmed Plan Of Treatment No Information Medical (General) History Medical History History ICD Code Hypertension Hyperlipidemia Chronic rhinitis J31.0 Hypertrophy of nasal turbinates J34.3 Localized swelling, mass and lump, head R22.0 Shortness of breath R06.02 Idiopathic urticaria L50.1 Surgical History Surgery Date(Month/Year) 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
== END 2025-03-18 16:38 | disposition home or self-care (01) ==
LOC: CHSLAB 16:39
PROVIDERS: PCP Internal Medicine; Visit Provider Internal Medicine
DX: E78.5 Hyperlipidemia, unspecified (principal); I10 Essential (primary) hypertension; D64.9 Anemia, unspecified; R53.82 Chronic fatigue, unspecified; L10.9 Pemphigus, unspecified; R73.01 Impaired fasting glucose
CPT/HCPCS: 36415; 80053; 80061; 81001; 82728; 83036; 83540; 84439; 84443; 84481; 85027

== ENCOUNTER 2025-04-02 16:29 | Outpatient (CLI) | payer OTHER, SELFPAY ==
--- OUTSIDE RECORDS SUMMARY | 2023-11-11 15:30 | XMS_ITS ---
Author Organization [facility] [employer] [place] ([address]) Address [address] [place] [address] Care Team Providers Care Warp Starter Name Role Phone Chitra Nicole Primary Care Provider Unavailabl Moses Rudolph Unavailable [phone] ZZ-Migration, Provider Unavailable Unavailab le Allergies Allergen (clinical drug ingredient) Drug/Non Drug Allergy documented on EMR Reaction Allergy Type Onset Date Status magnesium sulfate Magnesium Sulfate seizure Drug Allergy Active REASON FOR VISIT [facility] Conversion Encounter Medications Medication SIG (Take, Route, Frequency, Duration) Notes Start Date End Date Status Cetirizine HCl 10 MG 1 tab(s) orally BID ; Duration: 30 days 11/06/2023 Active Losartan Potassium 100 MG 1 tab(s) orall y once a day Active Pantoprazole Sodium 40 MG 1 tab(s) orall y once a day Active Lovastatin 40 MG 1 tab(s) orally once a day Active amLODIPine Besylate 2.5 MG 1 tab(s) oral ly once a day Active Montelukast Sodium 10 MG 1 tab(s) orally once a day; Duration: 30 day(s) 11/06/2023 Active Pepcid 20 MG 1 tab(s) orally 2 ti mes a day; Duration: 30 days 11/06/2023 Active Cetirizine HCl 10 MG 1 tab(s) orally onc e a day Active Benadryl Allergy 25 MG 1 cap(s) orally e very 6 hours Active Encounters Encounter [facility] [address] [facility] Provider Adan Localized swelling, mass and lump, head R22.0 Assessments Encounter Date Diagnosis (ICD Code) Assessment Notes Treatment Notes Treatment Clinical Notes Section Notes 11/11/2023 Localized swelling, mass and lump, head (ICD-10 - R22.0) Plan Of Treatment Medication Medication Name Sig Start Date Stop Date Notes Cetirizine HCl 10 MG 1 tab(s) orally BID ; Duration: 30 days 11/06/2023 Montelukast Sodium 10 MG 1 tab(s) orally once a day; Duration: 30 day(s) 11/06/2023 Pepcid 20 MG 1 tab(s) orally 2 ti mes a day; Duration: 30 days 11/06/2023 Progress Notes * Luanne CHADOB:1990 (34 yo F)Acc No.[id number]:11/11/2023 Patient: Luanne APONTE Provider: Conrad Leong :1990 A ge:33 Y S ex:Female Date:11/11/2023 Address:[address] [place], [place] [id number] Pcp:Chitra Nicole Subjective: * Chief Complaints: * 1 . [facility] To [facility] Conversion Encounter. * Medical History: * Medications: T aking Cetirizine HCl 10 MG Tablet 1 tab(s) orally once a day , Taking Benadryl Allergy 25 MG Capsule 1 cap(s) orally every 6 hours , Taking amLODIPine Besylate 2.5 MG Tablet 1 tab(s) orally once a day , Taking Pantoprazole Sodium 40 MG Tablet Delayed Release 1 tab(s) orally once a day , Taking Lovastatin 40 MG Tablet 1 tab(s) orally once a day , Taking Losartan Potassium 100 MG Tablet 1 tab(s) orally once a day * Allergies: M agnesium Sulfate: seizure. Objective: * Vitals: Assessment: * Assessment: 1. L ocalized swelling, mass and lump, head - R22.0 (Primary) Plan: * Treatment: * Billing Information: * Visit Code: * Procedure Codes: * Electronic signature of Felisa Arellano on 04/03/2025 at 03:13 PM ASSISTANT FINANCIAL ACCOUNTANT Sign off status: Pending * Provider: Conrad xiao Migration Date: 0 11/11/2023 Generated for Maira ma/Carole/Elisa on: 1 06/03/2024 03:13 PM ASSISTANT FINANCIAL ACCOUNTANT
--- OUTSIDE RECORDS SUMMARY | 2023-12-04 11:30 | XMS_ITS ---
Author Organization [facility] [employer] [place] ([address]) Address [address] [place] [address] Care Team Providers Care Day Porter Name Role Phone Chitra Nicole Primary Care Provider Moses Barksdale Unavailable [phone] REASON FOR VISIT New onset episode of shortness of breath, lip swelling, and hives occuring around 4PM. Ate a Ceasarsalad for lung and took Dayquil beforehand, Chronic lower airways symptoms concerning for possible asthma. Recently with elevated D- dimer with f/u imaging normal Reports history of mild asthma. Medications Medication SIG (Take, Route, Frequency, Duration) Notes Start Date End Date Status Pepcid 20 MG 1 tab(s) orally 2 ti mes a day; Duration: 30 days 11/06/2023 Active Montelukast Sodium 10 MG 1 tab(s) orally once a day; Duration: 30 day(s) 11/06/2023 Active CETIRIZINE 10 mg 1 tab(s) orally BID; Duration: 30 days Active PEPCID 20 mg 1 tab(s) orally 2 ti mes a day; Duration: 30 days Active MONTELUKAST 10 mg 1 tab(s) orally once a day; Duration: 30 day(s) Active amLODIPine Besylate 2.5 MG 1 tab(s) oral ly once a day Active Pantoprazole Sodium 40 MG 1 tab(s) orall y once a day Active Lovastatin 40 MG 1 tab(s) orally once a day Active Losartan Potassium 100 MG 1 tab(s) orall y once a day Active Cetirizine HCl 10 MG 1 tab(s) orally BID ; Duration: 30 days 11/06/2023 Active Cetirizine HCl 10 MG 1 tab(s) orally onc e a day Active Benadryl Allergy 25 MG 1 cap(s) orally e very 6 hours Active Encounters Encounter Location Date Provider Diagnosis [facility] [address] [facility] [facility] [address] [place] [address] 12/04/2023 Moses Bravo Localized swelling, mass and lump, head R22.0 ; Idiopathic urticaria L50.1 ; Hypertrophy of nasal turbinates J34.3 ; Chronic rhinitis J31.0 and Shortness of breath R06.02 Assessments Encounter Date Diagnosis (ICD Code) Assessment Notes Treatment Notes Treatment Clinical Notes Section Notes 12/04/2023 Localized swelling, mass and lump, head (ICD-10 - R22.0) On September 18, Luanne was working in her basement, at 4PM. At the time started to have increases SOB and cough. Soon after, her eyelids and lips started to swell. This continued into hives. She went to [place] [facility] and they shoved a bunch of medications in an IV. She at a Damián salad around 11:30 that AM. She also took DayQuil prior as well. The following day, she would still feel tingling along her lips with the continued abdominal pain. Labwork was obtained with normal IgG, A, and M levels with normal C4. Tryptase WNL at 9. The next morning, she increased chest tightness. She was given BRENNEN at the time which she denies benefit. Additional labwork was obtained with d-dimer and was noted + to strep on buccal swab. She was sent to [facility] which came back normal. She was given abx followed by a second round approx a week later with enlarged tonsil. No issues since. Of note, she has eaten a Damián wrap from [employer] and tolerated without issue. She also had Tylenol without issue. She otherwise denies any prior history of hives. She does not drink alcohol and denies any NSAID use that day. 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 The most likely underlying triggers is the strep infection as illness can bring about anaphylactic-like responses. The DayQuil is unlikely as she has tolerated Tylenol since then. That said, I cannot rule out dextromethorphan and Phenylephrine as unlikely as it is. Okay to continue NASIDs for the moment unless clear correlation is noted. For the mean time, will plan on additional lab work-up to rule out additional underlying causes. Will also recheck Tryptase level to assess for any mast cell involvement. Plan to start 4x FDA approved dosing of antihistamines. Keep AIE on hand at all times. She is set to obtain scope for stomach ulcers later this month. Avised checking in with GI as she will be on both Pepcid and Omeprazole. Plan to return in one month for E&M 12/04/2023 Idiopathic urticaria (ICD-10 - L50.1) as above 12/04/2023 Hypertrophy of nasal turbinates (ICD-10 - J34.3) Reurrent upper airway sympotms concerning for ARC. Not interested in further work-up. Would consider SPT when viable 12/04/2023 Chronic rhinitis (ICD-10 - J31.0) 12/04/2023 Shortness of breath (ICD-10 - R06.02) She does report a dx of mild asthma. Does report partial lung collapse 18 years after during a spinal fusion that has since resolved. She has only every been on albuterol, previously given during COVID. Recently, she had increased chest tightness. She was given BRENNEN at the time which she denies benefit. Follow-up imaging was normal showing a false positive. She denies recurrent lower airway infections and denies prior hospitalization for lower airway issues. No other smoking history. Reports she has essentially been asymptomatic in terms of breathing since d-dimer workup. She is a lifelong non-smoker. Given history and presentation, spirometry was performed showing mild restriction without post-BD response. We elected to hold BRENNEN today due to lack or perceived benefit. If issues of SOB persist, consider trial of ICS 12/04/2023 Other Plan Of Treatment Medication Medication Name Sig Start Date Stop Date Notes CETIRIZINE 10 mg 1 tab(s) orally BID; Duration: 30 days PEPCID 20 mg 1 tab(s) orally 2 ti mes a day; Duration: 30 days MONTELUKAST 10 mg 1 tab(s) orally once a day; Duration: 30 day(s) Treatment Notes Assessment Notes Localized swelling, mass and lump, head On September 18, Luanne was working in her basement, at 4PM. At the time started to have increases SOB and cough. Soon after, her eyelids and lips started to swell. This continued into hives. She went to [place] [facility] and they shoved a bunch of medications in an IV. She at a Damián salad around 11:30 that AM. She also took DayQuil prior as well. The following day, she would still feel tingling along her lips with the continued abdominal pain. Labwork was obtained with normal IgG, A, and M levels with normal C4. Tryptase WNL at 9. The next morning, she increased chest tightness. She was given BRENNEN at the time which she denies benefit. Additional labwork was obtained with d-dimer and was noted + to strep on buccal swab. She was sent to [facility] which came back normal. She was given abx followed by a second round approx a week later with enlarged tonsil. No issues since. Of note, she has eaten a Damián wrap from [employer] and tolerated without issue. She also had Tylenol without issue. She otherwise denies any prior history of hives. She does not drink alcohol and denies any NSAID use that day. 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 The most likely underlying triggers is the strep infection as illness can bring about anaphylactic-like responses. The DayQuil is unlikely as she has tolerated Tylenol since then. That said, I cannot rule out dextromethorphan and Phenylephrine as unlikely as it is. Okay to continue NASIDs for the moment unless clear correlation is noted. For the mean time, will plan on additional lab work-up to rule out additional underlying causes. Will also recheck Tryptase level to assess for any mast cell involvement. Plan to start 4x FDA approved dosing of antihistamines. Keep AIE on hand at all times. She is set to obtain scope for stomach ulcers later this month. Avised checking in with GI as she will be on both Pepcid and Omeprazole. Plan to return in one month for E&M Idiopathic urticaria as above Hypertrophy of nasal turbinates Reurrent upper airway sympotms concerning for ARC. Not interested in further work-up. Would consider SPT when viable Shortness of breath She does report a dx of mild asthma. Does report partial lung collapse 18 years after during a spinal fusion that has since resolved. She has only every been on albuterol, previously given during COVID. Recently, she had increased chest tightness. She was given BRENNEN at the time which she denies benefit. Follow-up imaging was normal showing a false positive. She denies recurrent lower airway infections and denies prior hospitalization for lower airway issues. No other smoking history. Reports she has essentially been asymptomatic in terms of breathing since d-dimer workup. She is a lifelong non-smoker. Given history and presentation, spirometry was performed showing mild restriction without post-BD response. We elected to hold BRENNEN today due to lack or perceived benefit. If issues of SOB persist, consider trial of ICS Next Appt Details Follow Up: 4 Weeks, Reason: Evaluation and Management Progress Notes * Luanne CHADOB:1990 (34 yo F)Acc No.[id number]:12/04/2023 Progress Notes Patient: Luanne APONTE Provider: Damien Bravo PA-C :1990 A ge:33 Y S ex:Female Date:12/04/2023 Address:[address] [place], [place] [id number] Pcp:Chitra Nicole Subjective: * Chief Complaints: * 1 . New onset episode of shortness of breath, lip swelling, and hives occuring around 4PM. Ate a Loki salad for lung and took Dayquil beforehand. 2. Chronic lower airways symptoms concerning for possible asthma. Recently with elevated D-dimer with f/u imaging normal Reports history of mild asthma.. * HPI: * Introduction: HPI: Damien Cha, a 33 y/o female presenting in consultation with Dr. Nicole for allergy evaluation and management. She is alone for today's visit. She reports being seen for stomach ulcers in August. She obtained lab work, increasing her lovastatin. On September 18. She was working in her basement, at 4PM. At the time started to have increases SOB and cough. Soon after, her eyelids and lips started to swell. She took Benadryl. Hives start to form up her next. Went to [place] ED and they shoved a bunch of medications in an IV. She at a Damián salad around 11 30. She also took DayQuil. The following day, she would still feel tingling along her lips with the continued abdominal pain. Labwork was obtained with normal IgG, A, and M levels with normal C4. Trytase WNL at 9. The next morning,she increased chest tightness. She was given BRENNEN at the time which she denies benefit. Additional labwork was obtained with d-dimer and was noted + to strep on buccal swab. She was sent to [facility] which came back normal. She was given abx. She was given a second abx approx a week later with enlarged tonsil. No issues since. Of note, she has eaten a Damián wrap from [employer] and tolerated without issue. She otherwise denies any prior history of hives. She does not drink alcohol and denies any NSAID use that day. She does report a dx of mild asthma. Does report partial lung collapse 18 years after during a spinal fusion that has since resolved. She has only every been on albuterol, previously given during COVID. She denies recurrent lower airway infections and denies prior hospitalization for lower airway issues. No other smoking history. Reports she has essentially been asymptomatic in terms of breathing since d- dimer workup. Also with reproted chronic upper airway symtpoms thouhg not intersted in further work-up at this time. She denies a history of physician-diagnosed allergic rhinitis, recurrent sinusitis or otitis media, recurrent pneumonia, asthma/RAD, eczema, food allergies, urticaria/angioedema, medication allergies, contact dermatitis, latex allergy, eosinophilic esophagitis or stinging insect hypersensitivity. She has never undergone allergy skin testing or received allergy immunotherapy. Today, he reports no fevers, chills, night sweats or other constitutional symptoms . * Allergic Rhinoconjunctivitis: Allergic rhinitis D o you have or suspect you have allergic rhinitis (itchy eyes, sneezing, congestion or runny nose triggered by allergies)? Y es W hich areas and what symptoms are involved? Please fill out each section below as needed. e yes,ears,cough,nose,sore throat,headache,sinuses W hich of the following trigger your allergic rhinitis symptoms? g rass pollen,cigarette smoke,mold,spring (season),summer (season),fall (season) Eyes S pecific affected area: b oth (bilateral) O ccurence? i ntermittent H ow frequent? w shweta W hen does this mostly occur? a nytime S ymptoms: i tching,watering E ffective treatments: o ral antihistamines (Zyrtec or Shalini or Claritin) Ears S pecific affected area: b oth (bilateral) H ow often? i ntermittent S ymptoms: a charlie Nose S pecific area affected: b oth (bilateral) O ccurence? i ntermittent H ow frequent? w shweta W hen does this mostly occur? a nytime S ymptoms? i tching,congestion,postnasal drainage E ffective treatments? o ral antihistamines (Zyrtec or Shalini or Claritin) Sinuses D o you have sinus pain? Y es H ave you lost sense of taste? N o W here? o ronald left cheek (maxillary),over right cheek (maxillary H ave you been treated with antibiotics for sinusitis? Y es W hich antibiotics? a moxicillin H ow often in the past year? o nce W hat is the longest duration of antibiotics prescribed and completed? 6 -10 days H ave any of the following treatments improved your sinus symptoms? o ral antihistamines (Zyrtec or Shalini) Sore Throat O ccurence? i ntermittent H ow frequent? m ty W hen does this usually occur? a nytime E ffective treatments? o ral analgesic (Tylenol or Advil),oral antihistamines (Zyrtec or Shalini) Cough F requency: addison crawford I s cough more bothersome during night? N o I s phlegm produced? Y es S putum color? c lear,yellow,green I s significant phlegm produced during the night? N o Headache S pecific area(s) affected? c enter forehead (frontal) O ccurence? i ntermittent H ow frequent? m ty W hat time of day does this mostly occur? a nytime * Asthma: Cough D o you have a recurrent cough? Y es A pproximately, when did your cough start??09/19/2023 H ow often do you cough? d aily W hat triggers your cough? g rass pollen,cigarette smoke,perfumes,spring (season),fall (season) W hich treatments have been effective for your cough? r eflux medication (Zantac or Pepcid or Prilosec or Prevacid or Nexium) I s your cough more bothersome at night? N o I s sputum produced? N o Wheezing D o you have recurrent wheezing or a history of wheezing sometime in your life? Y es A pproximately, when did it start? 0 08/2023 A pproximately, when did you last wheeze? 0 08/2023 D id you have symptoms of asthma as a child??No D id you have frequent respiratory infections as a child? N o W ere you ever hospitalized in the first 12 months of life for a respiratory infection in childhood? N o D o you still have wheezing? Y es I s your wheezing changing? s kathie W hat triggers your wheezing? g rass pollen D o you take an inhaled, rescue bronchodilator medication? Y es N kathie: A lbuterol I s your bronchodilator used daily? N o W hen was your last dose of an inhaled bronchodilator? t his month H ave you taken oral steroids (Prednisone or Medrol) in the past? Y es H ow many times throughout your entire life??3 H ow many times in the last year? 1 Nocturnal Symptoms D o you have any of the following respiratory symptoms at night? c oughing that interrupts sleep,significant phlegm production during the night Physical Performance H ow many blocks can you walk? (Enter 99 for unlimited) 8 H ow many flights of stairs can you climb without stopping? (Enter 99 for unlimited) 2 I f there are limitations, what symptoms limit further activity? c ough,leg cramps D o you have any of the following additional problems? d ifficulty concentrating during the daytime,more irritability than in the past Effective treatments for cough and or wheezing P rescription cough medicine: Garcia Mendoza escue inhaler or nebulizer treatment: A lbuterol O ral steroid: P rednisone A ntireflux medication: f amotidine (Pepcid) * Infections: Vaccination History F or children, are childhood vaccines up to date: Y es H ave you ever had a flu shot? Y es D ate of last flu shot? 0 01/28/2020 H ave you ever had a pneumococcal vaccine (STA-Yzphkle-Vgshjzfxy)? N o H ave you ever had a tetanus vaccine (AHtg-Quci-Va)? Y es Ear Infections D o you have frequent ear infections? N o Sinusitis (Sinus infections) D o you have frequent episodes of sinusitis??No Sinus Symptoms and Surgery D o you have chronic or recurrent sinus symptoms? N o D o you have sinus pain? Y es D o you have a loss of sense of taste? N o H ave you used any of the following treatments for your sinuses? o ral antihistamines,oral decongestants H ave you ever had a sinus CT or X-Ray? N o H ave your ever undergone sinus surgery? N o Bronchitis History D o you get frequent bronchitis? N o Pneumonia History H ave you ever had pneumonia or recurrent pneumonia? N o Skin and Other Infections D o you get frequent skin infections (cellulitis)? N o D o you get any other frequent infections??Yes W hat type(s)? p haryngitis (Strep throat) H ave you been seen by an tibco developer or physical plant manager for other infections? N o * Other Rash and Contact Dermatitis: Other rashes and contact dermatitis H ave you ever had any other form of rash or contact dermatitis? N o * Atopic dermatitis: Atopic dermatitis - Eczema D o you have chronic or recurrent atopic dermatitis or eczema? N o * Urticaria: Urticaria (hives) D o you have recurrent hives? N o * Medication allergy: Medication Allergy D o you feel you are allergic to any medications? Y es W hat type of medication? o ther (class not listed above) H ow was the medication administered? o ral,IV W hat was the medication administered for??other diagnosis W hat symptom(s) did the medication cause??nausea,syncope (passing out) W hen did the reaction first occur? 0 01/28/2012 W hen did the reaction last occur? 0 01/28/2012 I f antibiotic, what type: s ulfa W hat symptom(s) did the medication cause??nausea,vomiting,syncope H ave you been evaluated by an tibco developer previously for possible drug allergy? N o * Stinging Insects: Insect Reaction(s) H ave you ever experienced a stinging insect reaction? Y es W hat type of stinging insect? u nknown W as the reaction: l arge local - where sting occurred W hat symptoms were experienced? p ain,local swelling W ere you taken to the ER for evaluation? N o H ave you been previously prescribed an epinephrine autoinjector? N o H ave you previously seen an tibco developer for evaluation of possible stinging insect allergy? N o H ave you been treated for your stinging insect reaction with immunotherapy? N o * Prior Evaluations and Treatments: Prior evaluations and treatments H ave you been evaluated by another physician for allergic rhinitis, cough, wheezing, asthma, urticaria, angioedema, atopic dermatitis or eczema??No H ave you undergone testing for any aforementioned conditions or symptoms? N o H ave you ever been on allergy immunotherapy??No H ave you ever passed out during a blood draw, shot or vaccination? N o Last dose of antihistamine: c etirizine (Zyrtec) 0 10/28/2023 d iphenhydramine (Benadryl) 0 10/28/2023 o ther antihistamine (famotidine, cimetidine, ranitidine) 0 10/28/2023 H as your antihistamine been effective in controlling any of your symptoms? Y es S ymptoms related to what condition(s)? u rticaria or hives,angioedema or swelling D o you take any other psychiatric medication??No * Food allergy: Food Allergy D o you currently have or have you ever had any proven or suspected food allergies? N o * Eosinophilic GI: Eosinophilic Gastrointestinal Disease D o you have difficulty swallowing foods or have you previously needed to have your esophagus dilated for food impaction or have you been diagnosed with eosinophilic gastrointestinal disease? N o * Angioedema: Angioedema (swelling) D o you have recurrent swelling (angioedema)??No * ROS: A LLERGY: runny nose Y es. s cratchy throat Y es. i tchy eyes Y es. e ar fullness Y es. s inus congestion Y es. P ositive p er the HPI and history, otherwise unremarkable. S PECIAL SENSES: Positve for n one. c ataracts N o. g laucoma?No. l oss of hearing N o. i tching in ears Y es. r inging in ears N o.?loss of balance N o. l oss of smell N o. d ry eyes Y es. e xcessive tearing N o. i tching eyes Y es. l oss of taste N o. c onjunctivitis N o.?ear infections N o. C ONSTITUTIONAL: weight gain N o. l oss of appetite N o. f ever?No. w eakness N o. w eight loss N o. f atigue Y es. n ight sweats?No. P ositive for n one. E NT: cold Y es. c ough Y es. e pistaxis N o.?hearing loss N o. c hange in voice N o. s ore throat Y es. r inging in ears N o. s inus pain Y es. P ositive p er the HPI and history, otherwise unremarkable. R ESPIRATORY: shortness of breath Y es. c hest pain Y es. c hest congestion Y es. c ough Y es. P ositive p er the HPI and history, otherwise unremakable. O PHTHALMOLOGY: diminished vision N o. e ye irritation N o. d rainage from eyes N o. b lurring of vision N o. s easonal eye sx N o. P ositive for p er the HPI and history, otherwise unremarkable. i tching Y es. s ensitivity to light N o. d ischarge Y es. w atering N o. s welling of the eyelids N o. r edness N o. E NDOCRINOLOGY: fatigue Y es. p olydipsia N o. p olyuria N o. w eight loss N o. s leep disturbance N o. c old intolerance Y es. h eat intolerance Y es. d iabetes N o. P ositive for n one. C ARDIOLOGY: chest pain Y es. p alpitations N o. l eg edema?No. d izziness N o. s hortness of breath Y es. P ositive for n one.? G ASTROENTEROLOGY: dysphagia N o. a bdominal pain Y es. n ausea?Yes. v omiting N o. c onstipation N o. d iarrhea N o. b lood in stool?No. i ndigestion Y es. h emorrhoids N o. P ositive for n one. ? U ROLOGY: difficulty urinating N o. b lood in urine Y es.?frequent urination N o. u rinary incontinence N o. r ecurrent UTI N o. P ositive for n one. D ERMATOLOGY: rash N o. m ole N o. l umps N o. d ry or sensitive skin Y es. h good (urticaria) Y es. a cne N o. s kin cancer N o. P ositive for p er the HPI and history, otherwise unremakable. N EUROLOGY: headache Y es. t ingling numbness Y es. s eizures N o. i nsomnia N o. m britt loss N o. d izziness N o. g ait abnormality N o. P ositive for n one. H EMATOLOGY/LYMPH: Positive for n one. M USCULOSKELETAL: joint swelling N o. j oint pain Y es. l eg cramps Y es. j oint stiffness Y es. s ciatica N o. o steoporosis N o. f racture N o. c arpal tunnel Y es. g out N o. P ositive for n one. ? P SYCHOLOGY: high stress level N o. d epression N o. s leep disturbances N o. s uicidal ideation N o. e ating disorder N o. m ental or physical abuse N o. a nxiety Y es. P ositive for n one. F EMALE REPRODUCTIVE: heavy periods Y es. h ot flashes N o. a bnormal vaginal discharge N o. s exually active Y es. i nfertility N o. f requent yeat infections N o. p elvic pain Y es. b reast pain N o. n ipple discharge No. A re you ? N o. A re you planning on a future pregancy? N o. ? A ll other review of systems per the HPI and history, otherwise unremarkable. * Medical History: * Medications: Garcia montes Cetirizine HCl 10 MG Tablet 1 tab(s) [...] tab(s) orally once a day , Taking Cetirizine HCl 10 MG Tablet 1 tab(s) orally BID , Taking Pepcid 20 MG Tablet 1 tab(s) orally 2 times a day , Taking Montelukast Sodium 10 MG Tablet 1 tab(s) orally once a day Objective: * Vitals: * Examination: G eneral examination: General appearance: p leasant, well-developed, well-nourished. HEENT: p upils equal, round, and reactive to light and accommodation, conjunctiva are injected bilaterally, no tenderness to palpation of the sinuses, TM's without evidence of acute infection, turbinates 2+ swollen and pale inferiorly bilaterally, clear rhinorrhea is present, no polyps noted, no septal perforation, posterior oropharynx is erythematous and cobblestoning is present, erythema on pharyngeal wall, no exudates, no tongue swelling, and uvula is midline. Oral cavity: n ormal, no lesions. Neck, thyroid : s upple, non-tender, no anterior cervical lymphadenopathy. Breasts : n ot performed. Heart: R RR, S1-S2, no murmurs, no rubs, no gallops. Lungs: c lear to auscultation and percussion in all lung castillo, no wheezes or crackles. Abdomen: s oft, NT/ND, normal active bowel sounds. Neurologic exam: u nremarkable. Skin: n ormal, no rash, dermatographism, urticaria, angioedema. Peripheral pulses: n ormal (2+) bilaterally. Back: n ormal. Extremities: n ormal ROM, no clubbing, no cyanosis, no edema. Genitalia: n ot performed. Assessment: * Assessment: 1. L ocalized swelling, mass and lump, head - R22.0 (Primary) 2 . I diopathic urticaria - L50.1 3 . H ypertrophy of nasal turbinates - J34.3 ?4. C hronic rhinitis - J31.0 5 . S hortness of breath - R06.02 Plan: * Treatment: 2. I diopathic urticaria Notes: as above 3. H ypertrophy of nasal turbinates Notes: Reurrent upper airway sympotms concerning for ARC. Not interested in further work-up. Would consider SPT when viable 4. S hortness of breath Notes: She does report a dx of mild asthma. Does report partial lung collapse 18 years after during a spinal fusion that has since resolved. She has only every been on albuterol, previously given during COVID. Recently, she had increased chest tightness. She was given BRENNEN at the time which she denies benefit. Follow-up imaging was normal showing a false positive. She denies recurrent lower airway infections and denies prior hospitalization for lower airway issues. No other smoking history. Reports she has essentially been asymptomatic in terms of breathing since d-dimer workup. She is a lifelong non-smoker. Given history and presentation, spirometry was performed showing mild restriction without post-BD response. We elected to hold BRENNEN today due to lack or perceived benefit. If issues of SOB persist, consider trial of ICS * Procedure Codes: G 8427 DOC MEDS VERIFIED W/PT OR RE, A4617 Mouthpiece, 70537 RESPIRATORY FLOW VOLUME LOOP, 37820 NEB/MDI DEMO, Modifiers: 59 , 22234 NEB/MDI RX INITIAL, 35699 SPIROMETRY CHALLENGE, A7003 ADMN SET SM VOL NONFILTR NEB DISPBL, J7613 NOC ALBUTEROL INHAL UNIT DOSE 1 MG, Units: 3.00 * Preventive Medicine: Counseling: D iet J ournal dietary and environmental contacts.? M edication instruction: W atch for side effects of prescribed medications, Nasal steroid/antihistamine instruction: avoid septum. E ducation: G ENERAL EDUCATION: Our staff spent an additional 30 minutes in direct contact with the patient educating them on their current diagnoses and proper treatment and prevention of symptoms and the proper use of medications. P atient education material sent to portal? Y es C are goal follow up plan BMI management provided Y es Above Normal BMI Follow-up D ietary management education, guidance, and counseling B P Management: PRE-HYPERTENSIVE FOLLOW-UP PLAN: F ollow-up 1 month * Follow Up: 4 Weeks (Reason: Evaluation and Management) * Billing Information: * Visit Code: 55139 Office Visit, New Pt., Level 5. Modifiers: 25 * Procedure Codes: G8427 DOC MEDS VERIFIED W/PT OR RE. A4617 Mouthpiece. 25074 RESPIRATORY FLOW VOLUME LOOP. 69140 NEB/MDI DEMO. Modifiers: 59 63566 NEB/MDI RX INITIAL. 84609 SPIROMETRY CHALLENGE. A7003 ADMN SET SM VOL NONFILTR NEB DISPBL. J7613 NOC ALBUTEROL INHAL UNIT DOSE 1 MG. Units: 3.00. * Electronic signature of Sudhir Bravo PA-C on 04/03/2025 at 03:12 PM SALES DEVELOPER Sign off status: Pending * Provider: Damien Bravo PA-C Date: 0 12/04/2023 Generated for Maira ma/Carole/eTransmitting on: 1 06/03/2024 03:12 PM SALES DEVELOPER History and Physical Notes * HPI (History of Present Illness) Category Sub-Category Detail Notes Category Not es *Introduction HPI: Luanne Cha, a 33 y/o female presenting in consultation with Dr. Nicole for allergy evaluation and management. She is alone for today's visit. She reports being seen for stomach ulcers in August. She obtained lab work, increasing her lovastatin. On September 18. She was working in her basement, at 4PM. At the time started to have increases SOB and cough. Soon after, her eyelids and lips started to swell. She took Benadryl. Hives start to form up her next. Went to [place] ED and they shoved a bunch of medications in an IV. She at a Damián salad around 11 30. She also took DayQuil. The following day, she would still feel tingling along her lips with the continued abdominal pain. Labwork was obtained with normal IgG, A, and M levels with normal C4. Trytase WNL at 9. The next morning,she increased chest tightness. She was given BRENNEN at the time which she denies benefit. Additional labwork was obtained with d-dimer and was noted + to strep on buccal swab. She was sent to [facility] which came back normal. She was given abx. She was given a second abx approx a week later with enlarged tonsil. No issues since. Of note, she has eaten a Damián wrap from [employer] and tolerated without issue. She otherwise denies any prior history of hives. She does not drink alcohol and denies any NSAID use that day. She does report a dx of mild asthma. Does report partial lung collapse 18 years after during a spinal fusion that has since resolved. She has only every been on albuterol, previously given during COVID. She denies recurrent lower airway infections and denies prior hospitalization for lower airway issues. No other smoking history. Reports she has essentially been asymptomatic in terms of breathing since d-dimer workup. Also with reproted chronic upper airway symtpoms thouhg not intersted in further work-up at this time. She denies a history of physician-diagnosed allergic rhinitis, recurrent sinusitis or otitis media, recurrent pneumonia, asthma/RAD, eczema, food allergies, urticaria/angioedema, medication allergies, contact dermatitis, latex allergy, eosinophilic esophagitis or stinging insect hypersensitivity. She has never undergone allergy skin testing or received allergy immunotherapy. Today, he reports no fevers, chills, night sweats or other constitutional symptoms *Allergic Rhinoconjunctivitis Eyes Specific affected area:: both (bilateral) Occurence?: intermittent How frequent?: weekly When does this mostly occur?: anytime Symptoms:: itching,watering Effective treatments:: oral antihistamin es (Zyrtec or Shalini or Claritin) Ears Specific affected area:: both (b ilateral) How often?: intermittent Symptoms:: ache Cough Frequency:: monthly Is cough more bothersome during night?: No Is phlegm produced?: Yes Sputum color?: clear,yellow,green Is significant phlegm produced during the night?: No Nose Specific area affected:: both (b ilateral) Occurence?: intermittent How frequent?: weekly When does this mostly occur?: anytime Symptoms?: itching,congestion,postnasal drainage Effective treatments?: oral antihistamin es (Zyrtec or Shalini or Claritin) Sore Throat Occurence?: intermittent How frequent?: monthly When does this usually occur?: anytime Effective treatments?: oral analgesic (Tylenol or Advil),oral antihistamines (Zyrtec or Shalini) Headache Specific area(s) affected?: cent er forehead (frontal) Occurence?: intermittent How frequent?: monthly What time of day does this mostly occur? : anytime Sinuses Do you have sinus pain?: Yes Have you lost sense of taste?: No Where?: over left cheek (maxillary),over right cheek (maxillary Have you been treated with antibiotics f or sinusitis?: Yes Which antibiotics?: amoxicillin How often in the past year?: once What is the longest duration of antibiotics prescribed and completed?: 6-10 days Have any of the following tr eatments improved your sinus symptoms?: oral antihistamines (Zyrtec or Shalini) Allergic rhinitis Do you have or suspe ct you have allergic rhinitis (itchy eyes, sneezing, congestion or runny nose triggered by allergies)?: Yes Which areas and what symptoms are involved? Please fill out each section below as needed.: eyes,ears,cough,nose,sore throat,headache,sinuses Which of the following trigger your allergic rhinitis symptoms?: grass pollen,cigarette smoke,mold,spring (season),summer (season),fall (season) *Asthma Cough Do you have a recurrent cough?: Yes Approximately, when did your cough start?: 09/19/2023 How often do you cough?: daily What triggers your cough?: grass pollen,cigarette smoke,perfumes,spring (season),fall (season) Which treatments have been effective for your cough?: reflux medication (Zantac or Pepcid or Prilosec or Prevacid or Nexium) Is your cough more bothersome at night?: No Is sputum produced?: No Effective treatments for cou gh and or wheezing Prescription cough medicine:: Tessalon Elsie Rescue inhaler or nebulizer treatment:: Albuterol Oral steroid:: Prednisone Antireflux medication:: famotidine (Pepc id) Wheezing Do you have recurren t wheezing or a history of wheezing sometime in your life?: Yes Approximately, when did it start?: 08/2023 Approximately, when did you last wheeze?: 08/2023 Did you have symptoms of asthma as a chi ld?: No Did you have frequent respiratory infect ions as a child?: No Were you ever hospitalized i n the first 12 months of life for a respiratory infection in childhood?: No Do you still have wheezing?: Yes Is your wheezing changing?: same What triggers your wheezing?: grass poll en Do you take an inhaled, rescue bronchodi lator medication?: Yes Name:: Albuterol Is your bronchodilator used daily?: No When was your last dose of an inhaled bronchodilator?: this month Have you taken oral steroids (Prednisone or Medrol) in the past?: Yes How many times throughout your entire life?: 3 How many times in the last year?: 1 Nocturnal Symptoms Do you have any of t he following respiratory symptoms at night?: coughing that interrupts sleep,significant phlegm production during the night Physical Performance How many blocks can you wal k? (Enter 99 for unlimited): 8 How many flights of stairs c an you climb without stopping? (Enter 99 for unlimited): 2 If there are limitations, wh at symptoms limit further activity?: cough,leg cramps Do you have any of the follo wing additional problems?: difficulty concentrating during the daytime,more irritability than in the past *Infections Vaccination History For children , are childhood vaccines up to date:: Yes Have you ever had a flu shot?: Yes Date of last flu shot?: 01/28/2020 Have you ever had a pneumococcal vaccine (VKN-Waxchdi-Lxafjmjkf)?: No Have you ever had a tetanus vaccine (DTa p-Tdap-Td)?: Yes Ear Infections Do you have frequent ear infecti ons?: No Sinusitis (Sinus infections) Do you have frequen t episodes of sinusitis?: No Sinus Symptoms and Surgery Do you have chronic o r recurrent sinus symptoms?: No Do you have sinus pain?: Yes Do you have a loss of sense of taste?: N o Have you used any of the fol lowing treatments for your sinuses?: oral antihistamines,oral decongestants Have you ever had a sinus CT or X-Ray?: No Have your ever undergone sinus surgery?: No Bronchitis History Do you get frequent bronchiti s?: No Pneumonia History Have you ever had pneumonia or recurrent pneumonia?: No Skin and Other Infections Do you get frequent sk in infections (cellulitis)?: No Do you get any other frequent infections ?: Yes What type(s)?: pharyngitis (Strep throat) Have you been seen by an tibco developer or physical plant manager for other infections?: No *Other Rash and Contact Dermatitis Other rashes and contact dermatitis Have you ever had any other form of rash or contact dermatitis?: No *Atopic dermatitis Atopic dermatitis - Eczema Do you have chronic or recurrent atopic dermatitis or eczema?: No *Urticaria Urticaria (hives) Do you have re current hives?: No *Medication allergy Medication Allergy Do you fe el you are allergic to any medications? : Yes What type of medication?: other (class not listed above) How was the medication administered?: oral,IV What was the medication administered for?: other diagnosis What symptom(s) did the medication cause?: nausea,syncope (passing out) When did the reaction first occur?: 01/28/2012 When did the reaction last occur?: 01/28/2012 If antibiotic, what type:: sulfa What symptom(s) did the medication cause ?: nausea,vomiting,syncope Have you been evaluated by a n tibco developer previously for possible drug allergy?: No *Stinging Insects Insect Reaction(s) Have you ev er experienced a stinging insect reaction? : Yes What type of stinging insect?: unknown Was the reaction:: large local - where sting occurred What symptoms were experienced?: pain,local swelling Were you taken to the ER for evaluation?: No Have you been previously prescribed an epinephrine autoinjector?: No Have you previously seen an tibco developer for evaluation of possible stinging insect allergy?: No Have you been treated for your stinging insect reaction with immunotherapy?: No *Prior Evaluations and Treatments Prior evaluations and treatments Have you been evaluated by another physician for allergic rhinitis, cough, wheezing, asthma, urticaria, angioedema, atopic dermatitis or eczema?: No Have you undergone testing for any afore mentioned conditions or symptoms?: No Have you ever been on allergy immunother apy?: No Have you ever passed out during a blood draw, shot or vaccination?: No Last dose of antihistamine: cetirizine (Zyrtec): 10/28/2023 diphenhydramine (Benadryl): 10/28/2023 other antihistamine (famotidine, cimetid ine, ranitidine): 10/28/2023 Has your antihistamine been effective in controlling any of your symptoms?: Yes Symptoms related to what condition(s)?: urticaria or hives,angioedema or swelling Do you take any other psychiatric medica tion?: No *Food allergy Food Allergy Do you currently have or have you ever had any proven or suspected food allergies?: No *Eosinophilic GI Eosinophilic Gastroi ntestinal Disease Do you have difficulty swallowing foods or have you previously needed to have your esophagus dilated for food impaction or have you been diagnosed with eosinophilic gastrointestinal disease?: No *Angioedema Angioedema (swelling) Do you hav e recurrent swelling (angioedema)?: No Examination Category Sub-Category Detail Notes Category Not es General examination HEENT: pupils equal , round, and reactive to light and accommodation, conjunctiva are injected bilaterally, no tenderness to palpation of the sinuses, TM's without evidence of acute infection, turbinates 2+ swollen and pale inferiorly bilaterally, clear rhinorrhea is present, no polyps noted, no septal perforation, posterior oropharynx is erythematous and cobblestoning is present, erythema on pharyngeal wall, no exudates, no tongue swelling, and uvula is midline Neck, thyroid : supple, non-tender, no anterior cervical lymphadenopathy Heart: RRR, S1-S2, no murmu rs, no rubs, no gallops Lungs: clear to auscultatio n and percussion in all lung castillo, no wheezes or crackles Abdomen: soft, NT/ND, normal active bowel sounds Extremities: normal ROM, no clubb ing, no cyanosis, no edema General appearance: pleasant, well-devel oped, well-nourished Skin: normal, no rash, suzy matographism, urticaria, angioedema Neurologic exam: unremarkable Oral cavity: normal, no lesions Breasts : not performed Peripheral pulses: normal (2+) bilatera lly Back: normal Genitalia: not performed
[2025-04-02 16:36] LABS: Add Urine Microscopic? YES; Appearance Urine Clear (Clear); Glucose Urine UA Negative (Negative); Leukocyte Esterase Ur 1+ (Negative); Nitrate Urine Negative (Negative); Specific Grav Ur 1.025 (1.010-1.020)
--- OUTSIDE RECORDS SUMMARY | 2025-04-03 15:12 | XMS_ITS | Clinical Summary ---
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
--- OUTSIDE RECORDS SUMMARY | 2025-04-03 15:12 | XMS_ITS | Clinical Summary ---
Author Organization [facility] Address [address] [place] [address] Care Team Providers Care Senior Network Security Engineer Name Role Phone Evgeny Nicole MD Primary Care Provider [phone] Allergies Active Allergy Reactions Criticality Noted Date [...] on file Legal Sex Female 2:24 AM DIPLOMA MEDICAL ASSISTANT Gender Identity Not on file Sexual Orientation Not on file Last Filed Vital Signs Vital Sign Reading Time Taken Comments Blood Pressure 138/98 07/25/2024 5:20 PM DIPLOMA MEDICAL ASSISTANT Pulse 76 07/25/2024 5:20 PM DIPLOMA MEDICAL ASSISTANT Temperature 36.9 C (98.4 F) 07/25/2024 5:20 PM DIPLOMA MEDICAL ASSISTANT Respiratory Rate 16 07/25/2024 5:20 PM DIPLOMA MEDICAL ASSISTANT Oxygen Saturation 97% 07/25/2024 5:20 PM DIPLOMA MEDICAL ASSISTANT Inhaled Oxygen Concentration - - Weight 65.3 kg (144 lb) 07/25/2024 5:20 PM DIPLOMA MEDICAL ASSISTANT Height 152.4 cm (5') 09/21/2023 5:43 PM [...] patient's age to complete this topic Insurance [place] [id number] [facility] Care Teams Senior Network Security Engineer Relationship Specialty Start Date End Date Evgeny Nicole MD [address] [place] [address] PCP - General 05/25/20
--- OUTSIDE RECORDS SUMMARY | 2025-04-03 15:13 | XMS_ITS | Patient Health Record ---
Author Organization [facility] [employer] [place] ([address]) Address [address] [place] [address] Care Team Providers Care Hoisting Engineer Pile Driving Name Role Phone Chitra Nicole Primary Care Provider Moses Barksdale Unavailable [phone] Allergies Allergen (clinical drug ingredient) Drug/Non Drug [...] Status Risk Notes Problem Shortness of breath (185484685) Shortness of breath (R06.02) Active confirmed Problem Chronic allergic conjunctivitis (92166247) Other chronic allergic conjunctivitis (H10.45) Active confirmed Problem Allergic rhinitis (31732800) Other allergic rhinitis (J30.89) Active confirmed Problem Chronic rhinitis (67486423) Chronic rhinitis (J31.0) Active confirmed Problem Hypertrophy of nasal turbinates (67131689) Hypertrophy of nasal turbinates (J34.3) Active confirmed Problem Allergic rhinitis caused by animal hair and dander (078249235945896) Allergic rhinitis due to animal (cat) (dog) hair and dander (J30.81) Active confirmed Problem Idiopathic urticaria (13887539) Idiopathic urticaria (L50.1) Active confirmed Problem Swelling of head (748987062) Localized swelling, mass and lump, head (R22.0) [...]
--- OUTSIDE RECORDS SUMMARY | 2025-04-03 15:13 | XMS_ITS | Clinical Summary ---
Author Organization [facility] Address [address] [place] [address] Care Team Providers Care Cement Rubber Name Role Phone Unavailable Primary Care Provider [...] Cancer Screening with HPV 10/09/2021 COVID-19 Vaccine (2024-2 6 season) 2025 Influenza Adult (#1) 2025 Hepatitis [...]
--- OUTSIDE RECORDS SUMMARY | 2025-04-03 15:13 | XMS_ITS | Clinical Summary ---
Author Organization [facility] Address [address] [address] [place] [address] Phone Care Team Providers Care Storekeeper Engineering Name Role Phone Unavailable Primary Care Provider [...] on file Legal Sex Female 5:14 PM YARDER BOSS Gender Identity Not on file Sexual Orientation [...]
== END 2025-04-02 16:30 | disposition home or self-care (01) ==
LOC: CHSLAB 16:30
PROVIDERS: PCP Internal Medicine; Visit Provider Internal Medicine
DX: R82.81 Pyuria (principal)
CPT/HCPCS: 81001; 87086